=== PATIENT | male | born 1980 | race Caucasian/White ===

== ENCOUNTER 2017-12-23 05:36 | Observation (INO) ==
--- NOTE | 2017-12-23 06:08 | ED ---
HPI General Chief Complaint: Shortness of Breath/Dyspnea Stated Complaint: SOB Time Seen by Provider: 12/23/17 06:03 Source: patient and family Mode of arrival: ambulatory Limitations: no limitations History of Present Illness MD Complaint: Reports shortness of breath Onset (ago): day(s) (2) Severity: moderate Consistency/Duration: constant Relieving factors: nothing Exacerbating factors: lying flat Known history of: Reports congestive heart failure Treatment prior to arrival: Reports other (lasix 40mg?) Related Data Home Medications Medication Instructions Recorded Confirmed aspirin 81 mg PO DAILY 12/23/17 12/23/17 furosemide [Lasix] 20 mg PO DAILY 12/23/17 12/23/17 Allergies Allergy/AdvReac Type Severity Reaction Status Date / Time No Known Allergies Allergy Verified 12/23/17 05:44 Review of Systems ROS: all other systems reviewed are negative PMFSH History History Provided By: Patient and Family Member Medical History Medical History CHF (congestive heart failure) (Acute) Social History Social History Substance History: No History of Abuse Smoking Status: Current every day smoker Tobacco Type: Cigarettes How Often Do You Have a Drink Containing Alcohol: 2 to 3 times a week Recent Travel in [facility] within the Last 8 Weeks: No Recent Out of Country Travel within the Last 8 Weeks: No Exam Narrative Exam Narrative: GENERAL: Well-nourished, well-developed patient in no apparent distress. SKIN: Warm and dry. HEAD: Atraumatic. Normocephalic. EYES: Pupils equal and round. No scleral icterus. No injection or drainage. ENT: No nasal bleeding or discharge. Mucous membranes pink and moist. NECK: Trachea midline. No JVD. CARDIOVASCULAR: Regular rate and rhythm. no rubs or gallops RESPIRATORY: No accessory muscle use. Bibasilar rhonchi/crackles . Tidal volume equal bilaterally. Tachypneic GASTROINTESTINAL: Abdomen soft, non-tender, nondistended. No rebound or guarding MUSCULOSKELETAL: Extremities without clubbing, cyanosis, or edema. No obvious deformities. NEUROLOGICAL: Awake and alert. No obvious cranial nerve deficits. Motor grossly within normal limits. Five out of 5 muscle strength in the arms and legs. Normal speech. PSYCHIATRIC: Appropriate mood and affect; insight and judgment normal. Course Initial Documented Vital Signs Pulse Rate 127 H 12/23/17 05:44 Respiratory Rate 31 H 12/23/17 05:44 Pulse Oximetry 100 12/23/17 05:44 Last Documented Vital Signs Temperature 97.9 F 12/23/17 07:17 Pulse Rate 117 H 12/23/17 07:17 Respiratory Rate 20 12/23/17 07:17 Blood Pressure 128/82 12/23/17 07:17 Pulse Oximetry 96 12/23/17 07:20 Medical Decision Making MDM Narrative Medical decision making narrative: Symptoms and chest x-ray would indicate CHF exacerbation. Patient had been given Lasix in the ER. On reevaluation is still feeling short of breath, and his BNP is fairly elevated as well. CTA does not show any signs of PE. At this point, my plan would be to admit the patient for further treatment. Case is discussed with Dr. Scott for admission. Medical Screen Exam Complete: Yes Emergency Medical Condition: Yes Differential Diagnosis Differential Diagnosis: Pneumonia versus CHF versus COPD Lab Data Lab results reviewed: Yes I reviewed the patient's lab results. Result diagrams: 12/23/17 06:30 12/23/17 06:30 Lab Results 12/23/17 12/23/17 12/23/17 Range/Units 06:30 06:30 06:30 WBC 12.6 H (4.0-11.0) th/mm3 RBC 5.48 (4.50-5.90) mil/mm3 Hgb 17.9 H (13.0-17.0) gm/dL Hct 52.5 H (39.0-51.0) % MCV 95.9 (80.0-100.0) fL MCH 32.7 (27.0-34.0) pg MCHC 34.0 (32.0-36.0) % RDW 16.4 (11.6-17.2) % Plt Count 290 (150-450) th/mm3 MPV 8.5 (7.0-11.0) fL Neut % (Auto) 71.3 H (16.0-70.0) % Lymph % (Auto) 19.6 (9.0-44.0) % Sibley % (Auto) 7.5 (0.0-8.0) % Eos % (Auto) 1.0 (0.0-4.0) % Baso % (Auto) 0.6 (0.0-2.0) % Neut # (Auto) 9.0 H (1.8-7.7) th/mm3 Lymph # (Auto) 2.5 (1.0-4.8) th/mm3 Sibley # (Auto) 1.0 H (0.0-0.9) th/mm3 Eos # (Auto) 0.1 (0.0-0.4) th/mm3 Baso # (Auto) 0.1 (0.0-0.2) th/mm3 WBC Differential . Differential Comment Auto diff final PT 11.0 (9.8-11.6) sec INR 1.1 Ratio APTT 24.8 (23.4-31.7) sec Sodium 142 (136-145) meq/L Potassium 4.5 (3.5-5.1) meq/L Chloride 104 (98-107) meq/L Carbon Dioxide 27.9 (21.0-32.0) meq/L Anion Gap 10 (5-15) meq/L BUN 9 (7-18) mg/dL Creatinine 1.54 H (0.60-1.30) mg/dL Estimated GFR 51 L (>89) mL/min Random Glucose 123 H (74-106) mg/dL Calcium 8.6 (8.5-10.1) mg/dL Total Bilirubin 0.6 (0.2-1.0) mg/dL AST 56 H (15-37) U/L ALT 50 (12-78) U/L Alkaline Phosphatase 107 (45-117) U/L Total Creatine Kinase 567 H (39-308) U/L CK-MB (CK-2) 2.8 (0.5-3.6) ng/mL CK-MB (CK-2) % 0.5 (0.0-4.0) % Troponin I 0.06 H (0.02-0.05) ng/mL B-Natriuretic Peptide (0-100) pg/mL Total Protein 7.5 (6.4-8.2) g/dL Albumin 3.4 (3.4-5.0) g/dL 12/23/17 Range/Units 06:30 WBC (4.0-11.0) th/mm3 RBC (4.50-5.90) mil/mm3 Hgb (13.0-17.0) gm/dL Hct (39.0-51.0) % MCV (80.0-100.0) fL MCH (27.0-34.0) pg MCHC (32.0-36.0) % RDW (11.6-17.2) % Plt Count (150-450) th/mm3 MPV (7.0-11.0) fL Neut % (Auto) (16.0-70.0) % Lymph % (Auto) (9.0-44.0) % Sibley % (Auto) (0.0-8.0) % Eos % (Auto) (0.0-4.0) % Baso % (Auto) (0.0-2.0) % Neut # (Auto) (1.8-7.7) th/mm3 Lymph # (Auto) (1.0-4.8) th/mm3 Sibley # (Auto) (0.0-0.9) th/mm3 Eos # (Auto) (0.0-0.4) th/mm3 Baso # (Auto) (0.0-0.2) th/mm3 WBC Differential Differential Comment PT (9.8-11.6) sec INR Ratio APTT (23.4-31.7) sec Sodium (136-145) meq/L Potassium (3.5-5.1) meq/L Chloride (98-107) meq/L Carbon Dioxide (21.0-32.0) meq/L Anion Gap (5-15) meq/L BUN (7-18) mg/dL Creatinine (0.60-1.30) mg/dL Estimated GFR (>89) mL/min Random Glucose (74-106) mg/dL Calcium (8.5-10.1) mg/dL Total Bilirubin (0.2-1.0) mg/dL AST (15-37) U/L ALT (12-78) U/L Alkaline Phosphatase (45-117) U/L Total Creatine Kinase (39-308) U/L CK-MB (CK-2) (0.5-3.6) ng/mL CK-MB (CK-2) % (0.0-4.0) % Troponin I (0.02-0.05) ng/mL B-Natriuretic Peptide 1209 H (0-100) pg/mL Total Protein (6.4-8.2) g/dL Albumin (3.4-5.0) g/dL Imaging Data Attestation: I personally reviewed and interpreted this imaging study as follows : Radiologist's impression: Chest CTA 12/23/17 06:03 CONCLUSION: 1. Left ventricular enlargement. 2. Mediastinal lymph nodes most likely benign and follow-up is suggested with noncontrast chest CT in 6 months. There is also a right lung nodule could be followed at the same time. Chest X-Ray 12/23/17 06:03 CONCLUSION: Enlargement of the cardiac silhouette ECG Data EKG Prior to Arrival: No Attestation: I personally reviewed and interpreted this ECG as follows: Prior ECG tracings: not available for review Interpretation: Sinus tach, 127 bpm, left axis deviation, nonspecific ST-T wave changes, inverted T waves on 1 aVL and V6, no evidence of any acute ST elevation TX pattern. Discharge Plan Discharge Disposition Patient Disposition: 30 Still Patient Discharge Condition Condition: Stable Discharge Details Anticipated Discharge Date: 12/23/17 Diagnosis: CHF (congestive heart failure) Physicians Team ED Provider: Golden Rodriguez Primary Care Provider: Primary Care Crystal Gordon Rxs /Orders / Referrals /Forms Prescriptions: No Action aspirin 81 mg Tablet,Chewable 81 mg PO DAILY RF: 0 furosemide [Lasix] 20 mg Tablet 20 mg PO DAILY RF: 0 Discharge Interventions Interventions: Vital Signs Last Done: 12/23/17 07:17 Status ED Status: With Doctor
--- NOTE | 2017-12-23 06:27 | XR ---
EXAM DATE: 12/23/2017 6:25 AM EST AGE/SEX: 37 years / Male INDICATIONS: Shortness of breath. CLINICAL DATA: This is the patient's initial encounter. Patient reports that signs and symptoms have been present for 2 days and indicates a pain score of 0/10. MEDICAL/SURGICAL HISTORY: Congestive heart failure. None. COMPARISON: No prior exams available for comparison. FINDINGS: Cardiac silhouette is enlarged. No definite focal infiltrate or effusion. CONCLUSION: Enlargement of the cardiac silhouette Electronically signed by: Chilo Brower MD 12/23/2017 6:26 AM EST
[2017-12-23 06:49] LABS: Baso # (Auto) 0.1 th/mm3 (0.0-0.2); Baso % (Auto) 0.6 % (0.0-2.0); Eos # (Auto) 0.1 th/mm3 (0.0-0.4); Hematocrit 52.5 % (39.0-51.0); Hemoglobin 17.9 gm/dL (13.0-17.0); Lymph # (Auto) 2.5 th/mm3 (1.0-4.8); Lymph % (Auto) 19.6 % (9.0-44.0); Mean Corpuscular Hemoglobin 32.7 pg (27.0-34.0); Mean Corpuscular Volume 95.9 fL (80.0-100.0); Mean Platelet Volume 8.5 fL (7.0-11.0); Mono % (Auto) 7.5 % (0.0-8.0); Neut % (Auto) 71.3 % (16.0-70.0); Platelet Count 290 th/mm3 (150-450); Red Blood Count 5.48 mil/mm3 (4.50-5.90); Red Cell Distribution Width 16.4 % (11.6-17.2); White Blood Count 12.6 th/mm3 (4.0-11.0)
[2017-12-23 06:59] LABS: Activated Partial Thrombo Time 24.8 sec (23.4-31.7); INR 1.1 Ratio
[2017-12-23 07:26] LABS: Alanine Aminotransferase 50 U/L (12-78); Albumin 3.4 g/dL (3.4-5.0); Alkaline Phosphatase 107 U/L (45-117); Anion Gap 10 meq/L (5-15); Aspartate Aminotransferase 56 U/L (15-37); Blood Urea Nitrogen 9 mg/dL (7-18); Calcium 8.6 mg/dL (8.5-10.1); Carbon Dioxide 27.9 meq/L (21.0-32.0); Chloride 104 meq/L (98-107); Creatine Kinase 567 U/L (39-308); Glomerular Filtration Rate 51 mL/min (>89); Glucose,Random 123 mg/dL (74-106); Potassium 4.5 meq/L (3.5-5.1); Sodium 142 meq/L (136-145); Total Protein 7.5 g/dL (6.4-8.2); Troponin I 0.06 ng/mL (0.02-0.05)
[2017-12-23 07:39] LABS: CKMB Percent 0.5 % (0.0-4.0); Creatine Kinase MB 2.8 ng/mL (0.5-3.6)
--- NOTE | 2017-12-23 08:07 | CT ---
EXAM DATE: 12/23/2017 7:59 AM EST AGE/SEX: 37 years / Male INDICATIONS: Shortness of breath. CLINICAL DATA: This is the patient's initial encounter. Patient reports that signs and symptoms have been present for 2 days and indicates a pain score of 0/10. MEDICAL/SURGICAL HISTORY: Congestive heart failure. None. RADIATION DOSE: 10.51 CTDI (mGy) COMPARISON: No prior exams available for comparison. TECHNIQUE: Volumetric scanning was performed using a multi-row detector CT scanner during bolus infu alexys of 65 ml Omnipaque 350 (iohexol) nonionic water-soluble contrast as a single exam dose. The myesha a was post processed with a variety of visualization algorithms including full volume maximum intensi ty projection and sliding thin slab reformation. Using automated exposure control and adjustment of the mA and/or kV according to patient size, radiation dose was kept as low as reasonably achievable t o obtain optimal diagnostic quality images. DICOM format image data is available electronically for review and comparison. FINDINGS: There is an approximate 4 mm nodule right upper lobe. Minimal parenchymal infiltrate is seen within l ingula versus scar. There is left ventricular enlargement. There is no evidence of PE for technique. There are small lymph nodes within the mediastinum not phyllis quately characterized most likely benign, however nonspecific and the largest one measures 2.3 cm in size in pretracheal location. CONCLUSION: 1. Left ventricular enlargement. 2. Mediastinal lymph nodes most likely benign and follow-up is suggested with noncontrast chest CT i n 6 months. There is also a right lung nodule could be followed at the same time. Electronically signed by: Delilah Griffiths MD 12/23/2017 8:06 AM EST
[2017-12-23] MEDS: Heparin - SQ 10,000 UNITS/ML Vial SQ SCH ×2 (09:32→20:37)
--- NOTE | 2017-12-23 11:24 | ECG ---
Date Performed: 12/23/2017 Time Performed: 06:04:03 PTAGE: 37 years EKG: SINUS TACHYCARDIA MARKED LEFT AXIS DEVIATION NONSPECIFIC ST & T-WAVE ABNORMALITY ABNORMAL E CG Compared to PREVIOUS TRACING rate has increased, Nonspecific ST and T wave abnormalities are noted. PREVIOUS TRACIN09/22/2008 08.05 DOCTOR: Dragan Harris Interpretating Date/Time 12/23/2017 11:23:28
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
[2017-12-23] MEDS: Metoprolol Tartrate 25 MG Tablet PO SCH (20:37)
[2017-12-24 00:08] LABS: Troponin I 0.06 ng/mL (0.02-0.05)
[2017-12-24 06:56] LABS: Calcium 8.3 mg/dL (8.5-10.1); Carbon Dioxide 29.9 meq/L (21.0-32.0); Potassium 4.1 meq/L (3.5-5.1)
[2017-12-24 07:00] LABS: Chol/HDL Ratio 3.22 Ratio; HDL Cholesterol 42.2 mg/dL (40.0-60.0); Troponin I 0.06 ng/mL (0.02-0.05)
--- NOTE | 2017-12-24 09:35 | P.PNIM ---
Subjective Interval history: Patient reports he still feels short of breath with minimal activity. He denies chest pain. Physical Exam Vital signs: Vital Signs 12/23/17 10:35 12/23/17 11:00 12/23/17 11:24 Temperature 98.0 F 98.0 F 97.8 F Pulse Rate 110 H 114 H 106 H Respiratory Rate 23 19 16 Blood Pressure 112/80 107/73 113/82 Pulse Oximetry 97 96 96 12/23/17 13:25 12/23/17 14:30 12/23/17 15:00 Temperature 97.7 F 97.7 F 97.7 F Pulse Rate 78 106 H 102 H Respiratory Rate 16 20 Blood Pressure 130/71 124/77 109/77 Pulse Oximetry 99 98 98 12/23/17 20:00 12/24/17 00:00 12/24/17 00:10 Temperature 97.5 F L 98.6 F Pulse Rate 116 H 113 H 107 H Respiratory Rate 16 16 Blood Pressure 117/82 135/85 Pulse Oximetry 95 95 12/24/17 04:00 12/24/17 04:10 12/24/17 08:00 Temperature 98.5 F 98.0 F Pulse Rate 113 H 112 H 116 H Respiratory Rate 16 20 Blood Pressure 125/81 113/81 Pulse Oximetry 94 L 96 12/24/17 08:55 Temperature Pulse Rate Respiratory Rate Blood Pressure Pulse Oximetry 97 Intake & Output 12/23/17 12/24/17 12/24/17 18:59 06:59 18:59 Intake Total 400 / 400 480 / 480 Output Total 900 / 900 1000 / 1000 Balance -500 / -500 -520 / -520 Weight 77.11 kg Intake: Oral 400 / 400 480 / 480 Output: Urine 900 / 900 1000 / 1000 Other: # Voids 1 2 Narrative: GENERAL: This is a well-nourished, well-developed patient, in no apparent distress. CARDIOVASCULAR: Normal rate and regular rhythm without murmurs, gallops, or rubs. RESPIRATORY: Good respiratory efforts. Faint bibasilar crackles otherwise clear to auscultation bilaterally. GASTROINTESTINAL: Abdomen soft, non-tender, non-distended. Normal active bowel sounds MUSCULOSKELETAL: Extremities without cyanosis, or edema. NEURO: Alert & Oriented x4 to person, place, time, situation. Moves all ext x4 PSYCH: Appropriate mood and affect. Results - Labs CBC & Chem 7: 12/23/17 06:30 12/24/17 06:21 Laboratory Results - last 24 hr 12/23/17 12/24/17 23:25 06:21 Sodium 144 Potassium 4.1 Chloride 106 Carbon Dioxide 29.9 Anion Gap 8 BUN 11 Creatinine 1.45 H Estimated GFR 54 L Random Glucose 118 H Calcium 8.3 L Total Creatine Kinase 175 158 Troponin I 0.06 H 0.06 H Triglycerides 128 Cholesterol 136 LDL Cholesterol, Calc 68 HDL Cholesterol 42.2 Cholesterol/HDL Ratio 3.22 Assessment and Plan - Plan 37-year-old male admitted with acute systolic CHF: Acute exacerbation of systolic congestive heart failure: Unusual for a patient this age. He reports he was admitted to [facility] in [facility] and was diagnosed with CHF. His story is inconsistent when it comes to his medications. He states he has been compliant with Lasix and he has been taking his medications but also mention the other heart medications are too expensive for him. He could not tell me the names of any of the other medications he is supposed to be taking. He is requesting to be seen by a new track subway repair supervisor because he states he will not follow-up with the one he saw in [place]. -Continue IV Lasix today. Consider switching to all tomorrow. - Heart rate is uncontrolled, increase metoprolol to 25 mg every 8 hours. - TAMEKA RN to request his records from [facility] in [facility]. - Consult oracle consultant Cardiology. EF is severely reduced at 20%. Unusual for a patient this age. - Will eventually need ACEI and spironolactone if BP can tolerate, Will see how he responds to the increased dose of Metoprolol. Acute renal failure-Likely cardiorenal, slightly improved. Recheck BMP tomorrow. Chest tightness: Resolved. Likely secondary to CHF - initial troponin is 0.06 and remained flat. EKG showed sinus tachycardia with nonspecific ST-T wave changes. - Resolved. - Unclear to me if has ischemic cardiomyopathy Mediastinal lymphadenopathy, solitary lung nodule- CT scan showed mediastinal lymphadenopathy, likely benign, also with a 4 mm right lung nodule, follow-up in 6 months. This was discussed with the patient. He is a smoker. Tobacco abuse: - Patient counseled. Heparin for DVT prophylaxis
--- NOTE | 2017-12-24 10:54 | ECHRPT ---
Indication: Heart Failure CONCLUSIONS Severely dilated left ventricle. Wall thickness is measured at the upper limits of normal. The left ventricular systolic function is severely reduced with an estimated ejection fraction less than 20%. The left atrial size is [id number] dilated. The right atrial size is [id number] dilated. Mild mitral valve regurgitation. There is mild tricuspid valve regurgitation. The estimated pulmonary arterial pressure is 38 mmHg. Mild pulmonary valve regurgitation. BP: / HR: Rhythm: MEASUREMENTS (Male / Female) Normal Values Technical Quality:Good 2D ECHO LV Diastolic Diameter PLAX 6.9 cm 4.2 - 5.9 / 3.9 - 5.3 cm LV Systolic Diameter PLAX 6.4 cm IVS Diastolic Thickness 1.1 cm 0.6 - 1.0 / 0.6 - 0.9 cm LVPW Diastolic Thickness 0.9 cm 0.6 - 1.0 / 0.6 - 0.9 cm LV Relative Wall Thickness 0.3 RV Internal Dim ED PLAX 3.6 cm LVOT Diameter 2.2 cm Aortic Root Diameter 3.1 cm LA Systolic Diameter LX 4.6 cm 3.0 - 4.0 / 2.7 - 3.8 cm DOPPLER AV Peak Velocity 72.1 cm/s AV Peak Gradient 2.1 mmHg LVOT Peak Velocity 63.2 cm/s LVOT Peak Gradient 1.6 mmHg AV Area Cont Eq pk 3.3 cm Mitral E Point Velocity 80.9 cm/s LV E' Lateral Velocity 9.2 cm/s Mitral E to LV E' Lateral Ratio 8.8 LV E' Septal Velocity 5.4 cm/s Mitral E to LV E' Septal Ratio 15.1 TR Peak Velocity 265.0 cm/s TR Peak Gradient 28.1 mmHg Right Atrial Pressure 10.0 mmHg Pulmonary Artery Systolic Pressu 38.1 mmHg Right Ventricular Systolic Press 38.1 mmHg PV Peak Velocity 59.1 cm/s PV Peak Gradient 1.4 mmHg FINDINGS LEFT VENTRICLE Severely dilated left ventricle. Wall thickness is measured at the upper limits of normal. The left ventricular systolic function is severely reduced with an estimated ejection fraction less than 20%. RIGHT VENTRICLE Normal right ventricular size and systolic function. LEFT ATRIUM The left atrial size is [id number] dilated. RIGHT ATRIUM The right atrial size is [id number]-[id number] dilated. ATRIAL SEPTUM Normal atrial septal thickness without atrial level shunting by limited color doppler interrogation. AORTA The aortic root and proximal ascending aorta are normal in size on limited imaging. MITRAL VALVE Mild mitral valve regurgitation. AORTIC VALVE Trileaflet aortic valve. No aortic valve stenosis or regurgitation. TRICUSPID VALVE There is mild tricuspid valve regurgitation. The estimated pulmonary arterial pressure is 38 mmHg. PULMONARY VALVE Mild pulmonary valve regurgitation. VESSELS The inferior vena cava is normal in size. PERICARDIUM No pericardial effusion. Valdez Andrews MD, FACC, [facility] (Electronically Signed) Final Date:24 December 2017 10:53
[2017-12-24] MEDS: Metoprolol Tartrate 25 MG Tablet PO SCH ×2 (11:54→17:29)
[2017-12-24] MEDS: Heparin - SQ 10,000 UNITS/ML Vial SQ SCH ×2 (11:55→21:16)
[2017-12-24 14:08] LABS: Troponin I 0.06 ng/mL (0.02-0.05)
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
--- NOTE | 2017-12-24 21:55 | ECG ---
Date Performed: 12/24/2017 Time Performed: 14:38:10 PTAGE: 37 years EKG: SINUS TACHYCARDIA LEFT ATRIAL ENLARGEMENT MARKED LEFT AXIS DEVIATION Nonspecific ST and T [address] abnormalities ABNORMAL ECG No significant change from prior electrocardiogram. DOCTOR: Jaime Hwang Interpretating Date/Time 12/24/2017 21:55:29
--- NOTE | 2017-12-25 08:03 | P.PNCA ---
Subjective Interval history: patient reports continued exertional dyspnea. He is diuresing but not being measured. He is angry that he needs to stay in the hospital and doesn't want to "take a bunch of pills for the rest of my life" "I can't afford them so I'd rather just ". continues to feel mild chest pressure. Could not tolerate metoprolol so he has refused further doses. Lisinopril 2.5mg added. Medications and Allergies Allergies Allergy/AdvReac Type Severity Reaction Status Date / Time No Known Allergies Allergy Verified 12/23/17 05:44 Home Medications Medication Instructions Recorded Confirmed Type aspirin 81 mg PO DAILY 12/23/17 12/23/17 History furosemide [Lasix] 20 mg PO DAILY 12/23/17 12/23/17 History Active Medications: Active Medications Hydrocodone Bitart/Acetaminophen ([place] 5/325) 1 tab PO Q4H PRN PRN Reason: PAIN SCALE 1 TO 10 Last Admin: 12/24/17 21:16 Dose: 1 tab Aspirin (Aspirin Chew) 81 mg PO DAILY [facility] Last Admin: 12/24/17 11:54 Dose: 81 mg Furosemide (Lasix Inj) 20 mg IV.PUSH BID@0900,1800 [facility] Last Admin: 12/24/17 17:29 Dose: Not Given Furosemide (Lasix Inj) 40 mg IV.PUSH DAILY [facility] Heparin Sodium (Porcine) (Heparin Inj) 5,000 units SQ Q12HR [facility] Last Admin: 12/24/17 21:16 Dose: 5,000 units Lisinopril (Prinivil) 2.5 mg PO DAILY [facility] Metoprolol Tartrate (Lopressor) 25 mg PO TID [facility] Last Admin: 12/24/17 17:29 Dose: Not Given Miscellaneous (Pill Splitter) 1 each OTHER DAILY [facility] Last Admin: 12/24/17 11:55 Dose: 1 each Sodium Chloride (Ns Flush) 2 ml IV.FLUSH UNSCH PRN PRN Reason: FLUSH AFTER USING IV ACCESS Last Admin: 12/23/17 10:34 Dose: 2 ml Sodium Chloride (Ns Flush) 2 ml IV.FLUSH BID [facility] Last Admin: 12/24/17 21:16 Dose: 2 ml Physical Exam Vital signs: Vital Signs 12/24/17 08:00 12/24/17 08:55 12/24/17 11:23 Temperature 98.0 F 98.4 F Pulse Rate 116 H 112 H Respiratory Rate 20 16 Blood Pressure 113/81 111/82 Pulse Oximetry 97 97 92 L 12/24/17 15:58 12/24/17 15:59 12/24/17 19:28 Temperature 97.4 F L 98.6 F 98.4 F Pulse Rate 108 H 90 106 H Respiratory Rate 20 18 18 Blood Pressure 109/73 107/87 110/77 Pulse Oximetry 90 L 99 94 L 12/24/17 20:00 12/24/17 23:18 12/25/17 00:00 Temperature 98.6 F Pulse Rate 113 H 124 H 106 H Respiratory Rate 17 Blood Pressure 113/67 Pulse Oximetry 95 95 12/25/17 04:00 12/25/17 05:04 Temperature 98.4 F Pulse Rate 114 H 116 H Respiratory Rate 18 Blood Pressure 110/65 Pulse Oximetry 95 Intake & Output 12/24/17 12/25/17 12/25/17 18:59 06:59 18:59 Intake Total 860 / 860 Output Total 1000 / 1000 Balance -140 / -140 Intake: Oral 860 / 860 Output: Urine 1000 / 1000 Other: Date of Last Bowel Movement 12/24/17 Narrative: GENERAL: SKIN: Warm and dry. HEAD: Normocephalic. EYES: No scleral icterus. No injection or drainage. NECK: Supple, trachea midline. No JVD or lymphadenopathy. CARDIOVASCULAR: Regular rate and rhythm without murmurs, gallops, or rubs. RESPIRATORY: Breath sounds equal bilaterally. No accessory muscle use. GASTROINTESTINAL: Abdomen soft, non-tender. ,mild distention MUSCULOSKELETAL: No cyanosis, or edema. Results 12/23/17 06:30 12/24/17 06:21 Cardiac Enzymes 12/23/17 12/24/17 12/24/17 Range/Units 23:25 06:21 13:10 Troponin I 0.06 H 0.06 H 0.06 H (0.02-0.05) ng/mL Lipids 12/24/17 Range/Units 06:21 Triglycerides 128 (42-150) mg/dL Cholesterol 136 (120-200) mg/dL HDL Cholesterol 42.2 (40.0-60.0) mg/dL Cholesterol/HDL Ratio 3.22 Ratio Comprehensive Metabolic Panel 12/24/17 Range/Units 06:21 Sodium 144 (136-145) meq/L Potassium 4.1 (3.5-5.1) meq/L Chloride 106 (98-107) meq/L Carbon Dioxide 29.9 (21.0-32.0) meq/L BUN 11 (7-18) mg/dL Creatinine 1.45 H (0.60-1.30) mg/dL Calcium 8.3 L (8.5-10.1) mg/dL Intake and Output 12/24/17 12/25/17 12/25/17 22:59 06:59 14:59 Intake Total 380 / 380 Balance 380 / 380 Intake: Oral 380 / 380 Other: Date of Last Bowel Movement 12/24/17 - Imaging and Cardiology Imaging: Impressions Chest CTA 12/23/17 06:03 CONCLUSION: 1. Left ventricular enlargement. 2. Mediastinal lymph nodes most likely benign and follow-up is suggested with noncontrast chest CT in 6 months. There is also a right lung nodule could be followed at the same time. Assessment and Plan - Assessment (1) Cardiomyopathy Code(s): I42.9 - Cardiomyopathy, unspecified Status: Acute (2) CHF (congestive heart failure) Code(s): I50.9 - Heart failure, unspecified Status: Acute - Plan 37 yo M with anxiety recently diagnosed with cardiomyopathy (August 2017), CKD and current tobacco user who presents with progressive exertional dyspnea and abdominal swelling x several days. He reports having had 2 hospital admissions this year at [facility], first in August 2017 after having a syncopal episode and was first diagnosed with cardiomyopathy with EF <20%. He reports having had a normal cardiac catheterization and given a LifeVest with several medication upon discharge that he could not afford due to lack of insurance. He was admitted again one month later for CHF and apparently had a poor encounter with staff and pullman clerk and states because he was found to have an illicit drug in his system. Since last admission he has stopped wearing the LifeVest and has only been taking lasix 20mg daily. He reports progressive dyspnea and abdominal distension over the past several days. No chest pain except 30 mins prior to this encounter when he was given metoprolol 25mg along with asa and reported mild chest tightness. During ED visit here his EKG shows sinus tachycardia. Metoprolol 25mg TID has been started, HR remains elevated 110-120bpm. Echo confirms low EF <10% with severely dilated LV. troponin levels low 0.06 x 3. Creatinine elevated 1.5 cardiomyopathy- likely nonischemic. EF<20% need records from [facility] including last echo and cardiac cath report abdominal swelling likely equivalent for increasing edema. Patient would likely qualify for implantable cardioverter defibrillator, although he is not been maximized on guideline directed medical therapy. consider change from metoprolol to carvedilol. could not tolerate metoprolol. cont lisinopril 2.5mg cont lasix IV 40mg BID morning labs pending patient expressing anger/frustration at his current situation. Feels he cannot afford the necessary medication needed for his heart and states he probably won' t take them anyway. Multiple hospitalizations this year. Will consult case management. - Attending Attestation Convert to oral Lasix Intolerant of metoprolol Angiotensin-converting enzyme inhibitor added Fairly well compensated at this point. Noted crackles on exam. No edema. Noncompliance. Had already completed 3 months of automatic external cardioverter defibrillator. At this point I do not think he would be considered an ideal candidate for an implantable transvenous cardioverter defibrillator secondary to noncompliance and not being on guideline directed medical therapy for duration of 3 months. Not much for us to add at this point. Would recommend continued therapy, he can likely be discharged and follow-up with the [facility]. We will sign off. Call with questions.
[2017-12-25] MEDS ORDERED: Lisinopril 5 MG Tablet PO SCH (09:00)
--- NOTE | 2017-12-25 09:21 | P.PNIM ---
Subjective Interval history: Patient is requesting AICD. He states he didn't like the way Metoprolol made him feel. He is willing to try Coreg. Easily gets irritated. States the medications and being here is making him more anxious. HR still uncontrolled. Physical Exam Vital signs: Vital Signs 12/24/17 11:23 12/24/17 15:58 12/24/17 15:59 Temperature 98.4 F 97.4 F L 98.6 F Pulse Rate 112 H 108 H 90 Respiratory Rate 16 20 18 Blood Pressure 111/82 109/73 107/87 Pulse Oximetry 92 L 90 L 99 12/24/17 19:28 12/24/17 20:00 12/24/17 23:18 Temperature 98.4 F 98.6 F Pulse Rate 106 H 113 H 124 H Respiratory Rate 18 17 Blood Pressure 110/77 113/67 Pulse Oximetry 94 L 95 95 12/25/17 00:00 12/25/17 04:00 12/25/17 05:04 Temperature 98.4 F Pulse Rate 106 H 114 H 116 H Respiratory Rate 18 Blood Pressure 110/65 Pulse Oximetry 95 12/25/17 08:00 Temperature 97.7 F Pulse Rate 119 H Respiratory Rate 20 Blood Pressure 113/84 Pulse Oximetry 96 Intake & Output 12/24/17 12/25/17 12/25/17 18:59 06:59 18:59 Intake Total 860 / 860 Output Total 1000 / 1000 Balance -140 / -140 Intake: Oral 860 / 860 Output: Urine 1000 / 1000 Other: Date of Last Bowel Movement 12/24/17 Narrative: GENERAL: This is a well-nourished, well-developed patient, in no apparent distress. CARDIOVASCULAR: Normal rate and regular rhythm without murmurs, gallops, or rubs. RESPIRATORY: Good respiratory efforts. Clear to auscultation bilaterally. GASTROINTESTINAL: Abdomen soft, non-tender, non-distended. Normal active bowel sounds MUSCULOSKELETAL: Extremities without cyanosis, or edema. NEURO: Alert & Oriented x4 to person, place, time, situation. Moves all ext x4 PSYCH: Easily irritable. Results - Labs CBC & Chem 7: 12/23/17 06:30 12/24/17 06:21 Laboratory Results - last 24 hr 12/23/17 12/24/17 23:25 13:10 Hemoglobin A1c 6.0 Total Creatine Kinase 123 Troponin I 0.06 H Assessment and Plan - Plan 37-year-old male admitted with acute systolic CHF: Acute exacerbation of systolic congestive heart failure: He reports he was admitted to [facility] in [facility] and was diagnosed with CHF. His story is inconsistent when it comes to his medications. He states he has been compliant with Lasix and he has been taking his medications but also mention the other heart medications are too expensive for him. He states he has been wear the lifevest for 3 months and did not get better. - Switch to Coreg. Patient willing to try - [employer] Dr. Malcolm. Recommendation is for patient to be on medical therapy for at least 3 months, then he can considered for AICD. Patient is noncompliant and has been refusing medications. EF is severely reduced at 20%. - Patient started on low dose ACEI Acute renal failure-Likely cardiorenal, slightly improved. Follow up labs today. Chest tightness: Resolved. Likely secondary to CHF - initial troponin is 0.06 and remained flat. EKG showed sinus tachycardia with nonspecific ST-T wave changes. - Resolved. - Unclear to me if has ischemic cardiomyopathy Mediastinal lymphadenopathy, solitary lung nodule- CT scan showed mediastinal lymphadenopathy, likely benign, also with a 4 mm right lung nodule, follow-up in 6 months. This was discussed with the patient. He is a smoker. Tobacco abuse: - Patient counseled. Heparin for DVT prophylaxis Discharge Planning: Transition to oral medications. Plan to DC tomorrow if he remains stable. He will need to follow up outpatient with Cardiology.
[2017-12-25] MEDS: Heparin - SQ 10,000 UNITS/ML Vial SQ SCH (10:07)
[2017-12-25] MEDS ORDERED: LORazepam 1 MG Tablet PO PRN (10:26)
[2017-12-25] MEDS: Metoprolol Tartrate 25 MG Tablet PO SCH (12:12)
[2017-12-25 16:15] VITALS: BP 109/75; RESP 12; TEMP 97.6; O2SAT 94
[2017-12-25 17:21] VITALS: PULSE 115
--- NOTE | 2017-12-26 16:08 | P.DS ---
Date of admission: 12/23/17 09:00 Primary care physician: No Primary Care Physician Brief History from admission: This is a 37-year-old male with history of congestive heart failure diagnosed in August 2017 allegedly with an EF of 10% and negative cardiac catheterization presenting to the emergency department with shortness of breath which started yesterday associated with cough that is clear, no note of fever, chills or orthopnea. No sick contacts. No note of lower extremity swelling. Per patient , this is worsened when he eats certain types of food. He also had mild chest tightness, nonradiating, no nausea or vomiting. Of note, he never had a heart attack, no history of hypertension, diabetes or dyslipidemia. He smokes half a pack a day, not daily alcohol drinker, allegedly may be consuming a sixpack once a week DS: Summary Hospital Course: 37-year-old male admitted with acute on chronic systolic CHF. Patient is noncompliant. He eventually left the hospital AGAINST MEDICAL ADVICE. Treatment course per the last progress note detailed below: Acute exacerbation of systolic congestive heart failure: He reports he was admitted to [facility] in [facility] and was diagnosed with CHF. His story is inconsistent when it comes to his medications. He states he has been compliant with Lasix and he has been taking his medications but also mention the other heart medications are too expensive for him. He states he has been wear the lifevest for 3 months and did not get better. - Switch to Coreg. 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 Recommendation is for patient to be on medical therapy for at least 3 months, then he can considered for AICD. Patient is noncompliant and has been refusing medications. EF is severely reduced at 20%. - Patient started on low dose ACEI Acute renal failure-Likely cardiorenal, slightly improved. Follow up labs today. Chest tightness: Resolved. Likely secondary to CHF - initial troponin is 0.06 and remained flat. EKG showed sinus tachycardia with nonspecific ST-T wave changes. - Resolved. - Unclear to me if has ischemic cardiomyopathy Mediastinal lymphadenopathy, solitary lung nodule- CT scan showed mediastinal lymphadenopathy, likely benign, also with a 4 mm right lung nodule, follow-up in 6 months. This was discussed with the patient. He is a smoker. Tobacco abuse: - Patient counseled. Heparin for DVT prophylaxis - Time Spent with Patient Total time spent providing and/or coordinating discharge services: Less than 30 minutes - Quality: VTE Deep Vein Thrombosis/Pulmonary Embolism Present on Admission: No Exam Vital signs: Vital Signs 12/25/17 17:20 Pulse Rate 115 H Results Procedures completed during hospitalization: None - Impressions ITS Impressions Chest CTA 12/23/17 06:03 CONCLUSION: 1. Left ventricular enlargement. 2. Mediastinal lymph nodes most likely benign and follow-up is suggested with noncontrast chest CT in 6 months. There is also a right lung nodule could be followed at the same time. Chest X-Ray 12/23/17 06:03 CONCLUSION: Enlargement of the cardiac silhouette Discharge Plan - Discharge Disposition Patient Disposition: 07 Against Medical Advice - Discharge Condition Condition: Stable - Discharge Details Anticipated Discharge Date: 12/23/17 - Physicians Team Primary Care Provider: Primary Care Crystal Gordon Attending Provider: Jose Roberto Blank Other Providers: Giovanni Malcolm MD
== END 2017-12-25 18:36 | disposition left against medical advice (07) ==
LOC: NEPC 05:36 → NEDA 05:36 → NEPHCDU 15:00
PROVIDERS: ADMIT Family Medicine; ATTEND Family Medicine

== ENCOUNTER 2018-01-01 04:00 | Inpatient (IN) ==
[2018-01-01] MEDS ORDERED: Morphine Inj 4 MG/ML Vial IV.PUSH ONE (04:12)
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
[2018-01-01 04:36] LABS: Baso # (Auto) 0.1 th/mm3 (0.0-0.2); Baso % (Auto) 0.8 % (0.0-2.0); Eos % (Auto) 0.3 % (0.0-4.0); Hematocrit 52.4 % (39.0-51.0); Hemoglobin 17.1 gm/dL (13.0-17.0); Lymph # (Auto) 2.4 th/mm3 (1.0-4.8); Lymph % (Auto) 21.4 % (9.0-44.0); Mean Corpuscular HGB Conc 32.7 % (32.0-36.0); Mean Corpuscular Hemoglobin 31.5 pg (27.0-34.0); Mean Corpuscular Volume 96.5 fL (80.0-100.0); Mono # (Auto) 1.3 th/mm3 (0.0-0.9); Mono % (Auto) 11.4 % (0.0-8.0); Neut # (Auto) 7.3 th/mm3 (1.8-7.7); Neut % (Auto) 66.1 % (16.0-70.0); Platelet Count 269 th/mm3 (150-450); Red Blood Count 5.43 mil/mm3 (4.50-5.90); Red Cell Distribution Width 16.4 % (11.6-17.2)
[2018-01-01 04:51] LABS: Alanine Aminotransferase 71 U/L (12-78); Albumin 3.5 g/dL (3.4-5.0); Anion Gap 8 meq/L (5-15); Aspartate Aminotransferase 46 U/L (15-37); Blood Urea Nitrogen 24 mg/dL (7-18); Calcium 8.7 mg/dL (8.5-10.1); Carbon Dioxide 27.9 meq/L (21.0-32.0); Chloride 101 meq/L (98-107); Glomerular Filtration Rate 32 mL/min (>89); Glucose,Random 71 mg/dL (74-106); Lipase 84 U/L (73-393); Potassium 4.7 meq/L (3.5-5.1); Sodium 137 meq/L (136-145)
[2018-01-01 04:53] LABS: Alkaline Phosphatase 91 U/L (45-117)
[2018-01-01] MEDS ORDERED: Acetaminophen 325 MG Tablet PO PRN (05:40)
[2018-01-01] MEDS ORDERED: Bisacodyl 10 MG Supp RECTAL PRN (05:40)
[2018-01-01] MEDS ORDERED: Sodium Chlor 0.9% Inj 500 ML IV.SIG SCH (06:00)
--- NOTE | 2018-01-01 06:28 | US ---
EXAM DATE: 01/01/2018 6:21 AM EST AGE/SEX: 37 years / Male INDICATIONS: Abdominal pain. CLINICAL DATA: This is the patient's initial encounter. Patient reports that signs and symptoms have been present for 3 days and indicates a pain score of 1/10. MEDICAL/SURGICAL HISTORY: Congestive heart failure. Acute renal failure. None. COMPARISON: No prior exams available for comparison. MEASUREMENTS: Liver:__ 16.8 cm. Common Bile Duct:___ 3mm. Right Kidney:___9.4 x 4.8 x 4.9 cm. Left Kidney:___12.5 x 5.2 x 5.6 cm. Spleen:___10.6 cm. FINDINGS: Liver: Increased echotexture without focal lesion or ductal dilation. Portal Vein: Hepatopedal flow seen in portal vein. Common Duct: No intraluminal mass or stone visualized. Gallbladder: The gallbladder wall is diffusely thickened however the patient is not appreciably ten mathew over the gallbladder. No definite gallstones are identified. Pancreas: Not well visualized. Right Kidney: Increased echotexture. No mass or hydronephrosis. Left Kidney: Increased echotexture. No mass or hydronephrosis. Ascites: None Pleural Effusion: None Spleen: No focal lesion. Aorta: Non aneurysmal. IVC: Within normal limits Other: None. CONCLUSION: 1. Marked gallbladder wall thickening without a sonographic Busch's sign. 2. Echogenic liver presumably fatty infiltration. 3. Mildly echogenic kidneys suggesting chronic medical renal disease Electronically signed by: Giovanni Borrego MD 01/01/2018 6:27 AM EST
[2018-01-01] MEDS: Senna/Docusate Sodium 8.6/50 MG Tablet PO SCH ×2 (08:38→20:24)
[2018-01-01 09:54] LABS: Calcium 8.4 mg/dL (8.5-10.1); Carbon Dioxide 24.5 meq/L (21.0-32.0); Potassium 4.5 meq/L (3.5-5.1)
[2018-01-01] MEDS: Morphine Sulfate Inj 2 MG/ML Vial IV.PUSH PRN (10:35)
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
--- NOTE | 2018-01-01 14:13 | MB ---
cc: Adán Rios MD DATE: 01/01/2018 REASON FOR CONSULTATION: Preoperative evaluation. HISTORY OF PRESENT ILLNESS: The patient is a pleasant 37-year-old heavily tattooed gentleman with a history of cocaine abuse and nonischemic cardiomyopathy with ejection fraction of less than 20%. The patient also has history of noncompliance to medication he says due to cost. The patient was in the hospital about a week ago for congestive heart failure exacerbation, was discharged, continued to use cocaine (admitted by the patient), though he was not taking his diuretic as he felt he was already too dry. However, he began feeling more short of breath with minimal activity, and thus he presented to the emergency department. He also notes black tarry stools and throwing up black emesis. Aside from feeling weak and fatigued, he has no active chest pain or shortness of breath, lightheadedness, dizziness, or syncope. PAST MEDICAL HISTORY: Cocaine abuse, cardiomyopathy with an ejection fraction of less than 20% with severe LV dilation. Prior consultation noted a report of a negative catheterization done at [facility], though I do not currently have access to this. HOME MEDICATIONS: 1. Lactulose. 2. Zofran. ALLERGIES: NO KNOWN DRUG ALLERGIES. PHYSICAL EXAMINATION: VITAL SIGNS: Afebrile, pulse 105, respiratory rate 16, BP 117/77, saturating 97% on room air. GENERAL: Pleasant heavily tattooed gentleman in no distress. NECK: No JVD. LUNGS: Clear to auscultation bilaterally. CARDIOVASCULAR: Regular rate and rhythm. A 2/6 systolic murmur appreciated. ABDOMEN: Benign. EXTREMITIES: No edema. LABORATORY DATA: White count 11, hematocrit 52.4, platelets 269. Sodium 137, potassium 4.5, chloride 103, bicarbonate 24.5, BUN 24. Creatinine 2.2, down from 2.8. BNP is 1592. Chest x-ray shows cardiomegaly. IMPRESSION: 1. Acute on chronic systolic congestive heart failure. The patient appears well compensated. His BNP is elevated. However, his hemoglobin is actually high, implying he may even be dehydrated. At this point, I would opt to keep him euvolemic, but I will add a bit of oral Lasix to his regimen to assist with this. 2. Cardiomyopathy. He has been deemed noncompliant with medications and has ongoing cocaine abuse and thus has not been currently deemed to be a defibrillator candidate, though this could potentially change if his habits and compliance were to improve. 3. Preoperative evaluation. The patient has a known severe nonischemic cardiomyopathy. He is reasonably compensated. However given his low ejection fraction, he will be at high risk for any procedure, though I do not at this time feel there is much I can recommend that will significantly reduce his risk for any procedure. I will be available on an as-needed basis. Please call with any questions. Thank you again for the opportunity to participate in this patient's care. MD JAVIER Husain/jazmín , 01:18 PM , 01:27 PM
--- NOTE | 2018-01-01 14:59 | CT ---
EXAM DATE: 01/01/2018 2:46 PM EST AGE/SEX: 37 years / Male INDICATIONS: Right upper quadrant pain. CLINICAL DATA: This is the patient's initial encounter. Patient reports that signs and symptoms have been present for 4 - 6 days and indicates a pain score of 8/10. MEDICAL/SURGICAL HISTORY: Congestive heart failure. Renal failure, acute. None. RADIATION DOSE: 6.76 CTDI (mGy) [place] [facility] [place], [place] [facility] [place]. . TECHNIQUE: Multiple contiguous axial images were obtained through the abdomen. Images were obtained using multiple row detector helical technique. Using automated exposure control and adjustment of the mA and/or kV according to patient size, radiation dose was kept as low as reasonably achievable to o btain optimal diagnostic quality images. DICOM format image data is available electronically for rev iew and comparison. FINDINGS: Lower Lungs: The visualized lower lungs are clear. The heart is markedly enlarged. Liver: The liver is enlarged. No focal hepatic mass is identified on this unenhanced examination. No biliary ductal dilatation is noted. A small amount of ascites is noted within the abdomen and pelvis. The gallbladder demonstrates a diffusely thickened wall and contains hyperdense material. Streakines s is noted within the pericholecystic fat. The findings raise possibility of acute cholecystitis. Cli nical correlation is recommended. Spleen: Homogeneous density without enlargement. Pancreas: Unremarkable without mass or calcification. Kidneys: Normal in size and shape. No evidence of mass or hydronephrosis. Adrenal Glands: Unremarkable. Aorta: The aorta and proximal iliac vessels are grossly unremarkable without aneurysmal dilation. Bowel/Mesentery: The bowel loops are grossly unremarkable. The cecum and sigmoid colon have a normal configuration. Abdominal Wall: Intact. Retroperitoneum: No evidence of adenopathy in the retrocrural, para-aortic, or deep pelvic regions. Bladder: Contours are smooth. Reproductive Organs: No abnormal masses or calcifications seen. Inguinal: The inguinal region is unremarkable without evidence of adenopathy. Bony Structures: Mild degenerative changes and scoliosis of the thoracolumbar spine are noted. CONCLUSION: 1. Thick-walled gallbladder containing hyperdense material suggesting sludge and pericholecystic inf lammation. The findings suggest acute cholecystitis. Clinical correlation is recommended. 2. Enlarged liver. 3. Markedly enlarged heart. 4. Small amount of ascites within the abdomen or pelvis. 5. Mild degenerative changes and scoliosis of the thoracolumbar spine. Electronically signed by: Jose Bourgeois MD 01/01/2018 2:58 PM EST
--- NOTE | 2018-01-01 15:07 | ECG ---
Date Performed: 01/01/2018 Time Performed: 04:09:22 PTAGE: 37 years EKG: SINUS TACHYCARDIA Left axis deviation Atrial Abnormality Poor R-wave progresion which may b e due to the left axis deviation Diffuse Nonspecific ST-T change PREVIOUS TRACING : 12/24/2017 14.38 Since the previous tracing, no significant change not ed DOCTOR: Magdy Matthews Interpretating Date/Time 01/01/2018 15:05:48
[2018-01-01] MEDS ORDERED: Sincalide Inj 5 MCG Vial ONE (15:38)
[2018-01-01] MEDS ORDERED: Sod Chloride 0.9% Inj 1,000 ML IV.CONT SCH (15:49)
--- NOTE | 2018-01-01 16:39 | NM ---
EXAM DATE: 01/01/2018 4:31 PM EST AGE/SEX: 37 years / Male INDICATIONS: Nausea and vomiting. CLINICAL DATA: This is the patient's initial encounter. Patient reports that signs and symptoms have been present for 1 day and indicates a pain score of 3/10. MEDICAL/SURGICAL HISTORY: Congestive heart failure. Renal failure, chronic. None. COMPARISON: [facility] – [place] ABDOMEN & PELVIS W/O CONTRAST, 01/01/2018. [facility] [place], 2017. . DOSE: 4.1 mCi Tc-99m mebrofenin i.v. Medication: 1.4 mcg Cholecystokinin IV Identical symptomatic response Cholecystokinin was administered by slow infusion over 8 minutes beginning at 60 minutes. minutes. TECHNIQUE: Following the intravenous administration of radiotracer, dynamic sequential images were pe rformed with continuous acquisition. Time-activity curves were generated. FINDINGS: Hepatic Kinetics: There is prompt uptake of radiotracer in the liver. No focal defects are seen. Ther e is normal rate of washout from the hepatic parenchyma. Biliary Clearance: Activity is first seen in the extrahepatic biliary system at 18 minutes. There is normal excretion into the small bowel. Gallbladder: Activity is first seen in the gallbladder at 25 minutes. Post-CCK: After CCK administration, the patient moved significantly and the repositioned at 3 minutes after CCK administration. On qualitative assessment, there is very little emptying of the gallbladde r, less than 25%. Common bile duct kinetics are normal and there is no evidence of biliary obstructio n. Identical symptomatic response after cholecystokinin infusion. Biliary-Enteric Reflux: None observed. CONCLUSION: 1. Prompt visualization of the gallbladder excludes cystic duct obstruction. 2. Very little emptying of the gallbladder after cholecystokinin with reproduction of typical clinic al symptoms. These findings are characteristic of chronic cholecystitis. Electronically signed by: Hunter Thornton MD 01/01/2018 4:38 PM EST
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
[2018-01-01] MEDS: Furosemide 20 MG Tablet PO SCH (17:23)
--- NOTE | 2018-01-01 20:35 | P.PNGS ---
Subjective Interval history: 37-year-old male with presumed acute cholecystitis acute cholecystitis and cholelithiasis. Ejection fraction of less than 10% at last admission which is incompatible with any major surgery. This patient is absolutely not a candidate for surgery and mortality of this will be prohibitive. Patient should be treated with antibiotics if necessary, but I do not see any stigmata or clinical findings of acute cholecystitis, beyond distended gallbladder. Patient is not a surgical candidate for any surgery Full consult dictated Thanks J Physical Exam Vital signs: Vital Signs 01/01/18 04:00 01/01/18 04:10 01/01/18 08:00 Temperature 98.3 F 97.7 F Pulse Rate 117 H 124 H 107 H Respiratory Rate 22 22 16 Blood Pressure 131/81 120/73 117/77 Pulse Oximetry 98 97 97 01/01/18 10:45 01/01/18 11:49 01/01/18 12:00 Temperature Pulse Rate 105 H 102 H Respiratory Rate 16 16 Blood Pressure 100/67 Pulse Oximetry 94 L 01/01/18 19:40 Temperature 97.7 F Pulse Rate 101 H Respiratory Rate 18 Blood Pressure 99/72 L Pulse Oximetry 94 L Intake & Output 01/01/18 01/01/18 01/02/18 06:59 18:59 06:59 Intake Total 1000 / 1000 Balance 1000 / 1000 Weight 72.575 kg Intake: IV 1000 / 1000 NS Inj 500 ML @ 1000 mls/hr IV. 1000 / 1000 SIG BOLUS [facility] Rx#:[id number] Results - Labs 01/02/18 06:55 01/02/18 06:55 Laboratory Results - last 24 hr 01/01/18 01/01/18 01/01/18 04:17 04:17 04:17 WBC 11.0 RBC 5.43 Hgb 17.1 H Hct 52.4 H MCV 96.5 MCH 31.5 MCHC 32.7 RDW 16.4 Plt Count 269 MPV 9.0 Neut % (Auto) 66.1 Lymph % (Auto) 21.4 [place] % (Auto) 11.4 H Eos % (Auto) 0.3 Baso % (Auto) 0.8 Neut # (Auto) 7.3 Lymph # (Auto) 2.4 [place] # (Auto) 1.3 H Eos # (Auto) 0.0 Baso # (Auto) 0.1 WBC Differential . Differential Comment Auto diff final Sodium 137 Potassium 4.7 Chloride 101 Carbon Dioxide 27.9 Anion Gap 8 BUN 24 H Creatinine 2.28 H Estimated GFR 32 L Random Glucose 71 L Lactic Acid 2.2 H Calcium 8.7 Total Bilirubin 0.9 AST 46 H ALT 71 Alkaline Phosphatase 91 B-Natriuretic Peptide Total Protein 7.0 Albumin 3.5 Lipase 84 01/01/18 01/01/18 01/01/18 04:17 09:10 09:10 WBC RBC Hgb Hct MCV MCH MCHC RDW Plt Count MPV Neut % (Auto) Lymph % (Auto) [place] % (Auto) Eos % (Auto) Baso % (Auto) Neut # (Auto) Lymph # (Auto) [place] # (Auto) Eos # (Auto) Baso # (Auto) WBC Differential Differential Comment Sodium 137 Potassium 4.5 Chloride 103 Carbon Dioxide 24.5 Anion Gap 10 BUN 24 H Creatinine 2.20 H Estimated GFR 33 L Random Glucose 100 Lactic Acid 1.7 Calcium 8.4 L Total Bilirubin AST ALT Alkaline Phosphatase B-Natriuretic Peptide 1592 H Total Protein Albumin Lipase - Imaging Imaging: ITS Impressions Bile Acid Absorption NM 01/01/18 00:00 CONCLUSION: 1. Prompt visualization of the gallbladder excludes cystic duct obstruction. 2. Very little emptying of the gallbladder after cholecystokinin with reproduction of typical clinical symptoms. These findings are characteristic of chronic cholecystitis. Abdomen Ultrasound 01/01/18 04:37 CONCLUSION: 1. Marked gallbladder wall thickening without a sonographic Busch's sign. 2. Echogenic liver presumably fatty infiltration. 3. Mildly echogenic kidneys suggesting chronic medical renal disease Abdomen/Pelvis CT 01/01/18 12:29 CONCLUSION: 1. Thick-walled gallbladder containing hyperdense material suggesting sludge and pericholecystic inflammation. The findings suggest acute cholecystitis. Clinical correlation is recommended. 2. Enlarged liver. 3. Markedly enlarged heart. 4. Small amount of ascites within the abdomen or pelvis. 5. Mild degenerative changes and scoliosis of the thoracolumbar spine.
[2018-01-01] MEDS: ceFAZolin 1 GM Premix Inj 1 GM/50 ML FROZ.PIGGY IV.SIG SCH (22:15)
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
[2018-01-02] MEDS: ceFAZolin 1 GM Premix Inj 1 GM/50 ML FROZ.PIGGY IV.SIG SCH ×3 (07:03→21:59)
[2018-01-02 07:20] LABS: Baso # (Auto) 0.1 th/mm3 (0.0-0.2); Baso % (Auto) 0.8 % (0.0-2.0); Eos % (Auto) 0.3 % (0.0-4.0); Hematocrit 46.2 % (39.0-51.0); Hemoglobin 16.2 gm/dL (13.0-17.0); Lymph # (Auto) 1.8 th/mm3 (1.0-4.8); Lymph % (Auto) 23.2 % (9.0-44.0); Mean Corpuscular Hemoglobin 33.1 pg (27.0-34.0); Mean Corpuscular Volume 94.7 fL (80.0-100.0); Mean Platelet Volume 9.1 fL (7.0-11.0); Mono # (Auto) 0.9 th/mm3 (0.0-0.9); Mono % (Auto) 12.1 % (0.0-8.0); Neut # (Auto) 4.8 th/mm3 (1.8-7.7); Neut % (Auto) 63.6 % (16.0-70.0); Platelet Count 196 th/mm3 (150-450); Red Blood Count 4.87 mil/mm3 (4.50-5.90); Red Cell Distribution Width 16.1 % (11.6-17.2); White Blood Count 7.6 th/mm3 (4.0-11.0)
[2018-01-02 07:55] LABS: Alanine Aminotransferase 177 U/L (12-78); Albumin 2.9 g/dL (3.4-5.0); Alkaline Phosphatase 74 U/L (45-117); Anion Gap 11 meq/L (5-15); Aspartate Aminotransferase 181 U/L (15-37); Blood Urea Nitrogen 28 mg/dL (7-18); Calcium 8.4 mg/dL (8.5-10.1); Carbon Dioxide 23.4 meq/L (21.0-32.0); Chloride 105 meq/L (98-107); Glomerular Filtration Rate 31 mL/min (>89); Glucose,Random 88 mg/dL (74-106); Potassium 4.8 meq/L (3.5-5.1); Sodium 139 meq/L (136-145); Total Protein 5.8 g/dL (6.4-8.2)
[2018-01-02] MEDS: Senna/Docusate Sodium 8.6/50 MG Tablet PO SCH ×2 (08:56→20:32)
[2018-01-02] MEDS: Furosemide 20 MG Tablet PO SCH (08:56)
[2018-01-02] MEDS ORDERED: Lisinopril 5 MG Tablet PO SCH (09:00)
--- NOTE | 2018-01-02 10:46 | P.PNGI ---
Subjective Interval history: Patient resting soundly with eyes closed Continued right upper quadrant abdominal pain reported No active bleeding reported Physical Exam Vital signs: Vital Signs 01/01/18 10:45 01/01/18 11:49 01/01/18 12:00 Temperature Pulse Rate 105 H 102 H Respiratory Rate 16 16 Blood Pressure 100/67 Pulse Oximetry 94 L 01/01/18 19:40 01/01/18 23:53 01/02/18 03:22 Temperature 97.7 F 97.8 F 98.7 F Pulse Rate 101 H 96 H 89 Respiratory Rate 18 20 18 Blood Pressure 99/72 L 100/68 98/63 L Pulse Oximetry 94 L 94 L 94 L 01/02/18 07:47 Temperature 98.6 F Pulse Rate 93 H Respiratory Rate 20 Blood Pressure 86/69 L Pulse Oximetry 96 Intake & Output 01/01/18 01/02/18 01/02/18 18:59 06:59 18:59 Intake Total 1000 / 1000 250 / 250 50 / 50 Balance 1000 / 1000 250 / 250 50 / 50 Intake: IV 1000 / 1000 250 / 250 50 / 50 NS Inj 500 ML @ 1000 mls/hr IV. 1000 / 1000 [facility] Rx#:[id number] Ancef 1 GM Premix Inj 1 gm In 50 / 50 50 / 50 50 ml @ 100 mls/hr IV.SIG Q8HR [facility] Rx#:[id number] Flagyl 500 MG Inj 100 ML @ 100 200 / 200 mls/hr IV.SIG Q8H [facility] Rx#: [id number] - Constitutional no acute distress - Routine HEENT Exam Head: Present: normocephalic - Routine Respiratory Exam Absent: accessory muscle use - Routine Abdominal Exam Present: soft, normoactive bowel sounds, tenderness. Absent: distended, firm - Routine Skin Exam Present: dry, warm Results - Labs CBC & Chem 7: 01/02/18 06:55 01/02/18 06:55 Laboratory Results - last 24 hr 01/01/18 01/01/18 01/02/18 09:10 09:10 06:55 WBC 7.6 RBC 4.87 Hgb 16.2 Hct 46.2 MCV 94.7 MCH 33.1 MCHC 35.0 RDW 16.1 Plt Count 196 MPV 9.1 Neut % (Auto) 63.6 Lymph % (Auto) 23.2 [place] % (Auto) 12.1 H Eos % (Auto) 0.3 Baso % (Auto) 0.8 Neut # (Auto) 4.8 Lymph # (Auto) 1.8 [place] # (Auto) 0.9 Eos # (Auto) 0.0 Baso # (Auto) 0.1 WBC Differential . Differential Comment Auto diff final Sodium 137 Potassium 4.5 Chloride 103 Carbon Dioxide 24.5 Anion Gap 10 BUN 24 H Creatinine 2.20 H Estimated GFR 33 L Random Glucose 100 Calcium 8.4 L Total Bilirubin AST ALT Alkaline Phosphatase Total Protein Albumin Lipase 60 L Cancelled 01/02/18 06:55 WBC RBC Hgb Hct MCV MCH MCHC RDW Plt Count MPV Neut % (Auto) Lymph % (Auto) [place] % (Auto) Eos % (Auto) Baso % (Auto) Neut # (Auto) Lymph # (Auto) [place] # (Auto) Eos # (Auto) Baso # (Auto) WBC Differential Differential Comment Sodium 139 Potassium 4.8 Chloride 105 Carbon Dioxide 23.4 Anion Gap 11 BUN 28 H Creatinine 2.37 H Estimated GFR 31 L Random Glucose 88 Calcium 8.4 L Total Bilirubin 1.0 AST 181 H ALT 177 H Alkaline Phosphatase 74 Total Protein 5.8 L D Albumin 2.9 L D Lipase - Imaging Impressions Bile Acid Absorption NM 01/01/18 00:00 CONCLUSION: 1. Prompt visualization of the gallbladder excludes cystic duct obstruction. 2. Very little emptying of the gallbladder after cholecystokinin with reproduction of typical clinical symptoms. These findings are characteristic of chronic cholecystitis. Abdomen/Pelvis CT 01/01/18 12:29 CONCLUSION: 1. Thick-walled gallbladder containing hyperdense material suggesting sludge and pericholecystic inflammation. The findings suggest acute cholecystitis. Clinical correlation is recommended. 2. Enlarged liver. 3. Markedly enlarged heart. 4. Small amount of ascites within the abdomen or pelvis. 5. Mild degenerative changes and scoliosis of the thoracolumbar spine. Assessment and Plan (1) Abdominal pain Status: Acute Code(s): R10.9 - Unspecified abdominal pain - Plan This patient is a 37-year-old male with a significant past medical history of congestive heart failure with an EF of 20%, chronic kidney disease, cocaine abuse, past skull fracture, and cardiomyopathy. Patient presented to the ER at [facility] on 01/01/2018 with complaint of right-sided abdominal pain onset 3 days ago. Patient describes the pain as sharp and spasmodic states that it is intermittent and is aggravated by eating fried or fatty foods and also with carbonated beverages. Patient endorses decreased appetite over the last week. Patient unsure if he has ever had upper endoscopy in the past. Denies ever having had a colonoscopy in the past. Patient reports one episode of dark emesis and dark stools 3 days ago. Patient describes same as dark brown in color. Patient denies use of NSAIDs or aspirin. Patient denies any known family history for gastrointestinal disorders. States he smokes 3 cigarettes/week. Reports he is a social drinker of alcoholic products. Upon consultation, patient denies any use of illicit drugs however, upon admission he acknowledged using cocaine earlier prior to admission because he thought it would relieve his abdominal pain. Patient was recently admitted 1 week ago for chest pain with exacerbation of CHF. Our service has been consulted to evaluate patient for abdominal pain with nausea vomiting and dark stools. Abdominal pain Possible melena stools/hematemesis Patient endorses 3-day history of right-sided abdominal pain that he describes as spasmodic. Patient rates pain at 8 out of 10 and states it is aggravated by eating fried or fatty foods. Patient reports one episode of dark emesis and stools 3 days ago. Patient denies use of NSAIDs or aspirin. 01/01/2018 hemoglobin 17.1 hematocrit 52.4 BUN 24 creatinine 2.2 GFR 33 lipase 84 01/01/2018 CT abdomen and pelvis revealed the following findings-- Thick-walled gallbladder containing hyperdense material suggesting sludge and pericholecystic inflammation. The findings suggest acute cholecystitis. Clinical correlation is recommended. Enlarged liver. Markedly enlarged heart. Small amount of ascites within the abdomen or pelvis. Mild degenerative changes and scoliosis of the thoracolumbar spine. 01/02/2018 Abdominal pain/cholecystitis/choledocholithiasis Patient resting soundly. Continued abdominal pain reported. No reported bleeding. Per general surgery consultation, patient is not a surgical candidate due to ejection fraction of less than 10% during last admission. We will consult IR for percutaneous drainage of gallbladder. Hemoglobin 16.2 hematocrit 46.2 platelet count 196 Total bilirubin 1.0 AST 181 ALT 177 alk phos 74. 01/02/18 Spoke with , who feels patient not considered a candidate for percutaneous drainage as HIDA scan normal and cystic duct patent. Plan -N.p.o. -General surgery consult noted and appreciated -IR consulted for percutaneous drainage of gallbladder -Avoid NSAIDs or aspirin -Analgesics and antiemetics as per attending -Ramiro, Dyan Parr and Nasra -Monitor labs -PPI -Supportive care -GI will sign off at this time, please reconsult if needed. This patient has been seen by myself and Dr. Medina and this note is written on his behalf - Attending Attestation Dr. Medina
--- NOTE | 2018-01-02 11:04 | P.PNIM ---
Subjective Interval history: Patient seen and examined this morning at the bedside with friend at the bedside + abdominal reported bilaterally upper quadrants as per patient no emesis but did require nausea medications for symtoms denied fever or chills has been NPO and GI/Surgery consultations both appreciated EF of < 20% extreme risk for cardiac arrythmias. This was discussed with patient but he does not seems to be an ative participant in his own care. Explained that his condition is very serious and that compliance with recommended treatments is VERY important. Patient eventually verbalized understanding and frustration with being told he is not a surgical candidate. Physical Exam Vital signs: Last Vital Signs Temp 98.6 F 01/02/18 07:47 Pulse 93 H 01/02/18 07:47 Resp 20 01/02/18 07:47 BP 86/69 L 01/02/18 07:47 Pulse Ox 96 01/02/18 07:47 Intake & Output 12/31/17 01/01/18 01/02/18 01/03/18 06:59 06:59 06:59 06:59 Intake Total 1250 / 1250 50 / 50 Balance 1250 / 1250 50 / 50 Weight 72.575 kg Gen: NAD CVS: S1/S2 Resp: reduced breath sounds base of the lung bilaterally. no wheeze GI: soft, mild tenderness in RUQ with roca sign evident. + bowel sounds. No scar.Non distended. No ascities. Ext: No leg edema. No calf tenderness Skin: multiple skin tatoo but doesnt appear infected skin Results Labs CBC & Chem 7: 01/02/18 06:55 01/02/18 06:55 Imaging Imaging: Impressions Bile Acid Absorption NM 01/01/18 00:00 CONCLUSION: 1. Prompt visualization of the gallbladder excludes cystic duct obstruction. 2. Very little emptying of the gallbladder after cholecystokinin with reproduction of typical clinical symptoms. These findings are characteristic of chronic cholecystitis. Abdomen/Pelvis CT 01/01/18 12:29 CONCLUSION: 1. Thick-walled gallbladder containing hyperdense material suggesting sludge and pericholecystic inflammation. The findings suggest acute cholecystitis. Clinical correlation is recommended. 2. Enlarged liver. 3. Markedly enlarged heart. 4. Small amount of ascites within the abdomen or pelvis. 5. Mild degenerative changes and scoliosis of the thoracolumbar spine. Assessment and Plan (1) Abdominal pain: Code(s): R10.9 - Unspecified abdominal pain Status: Acute (2) Acute cholecystitis: Code(s): K81.0 - Acute cholecystitis Status: Acute (3) Elevated liver enzymes: Code(s): R74.8 - Abnormal levels of other serum enzymes Status: Acute Plan Infectious disease: Acute cholecystitis - Surgery consulted and recommendations appreciated. NOT surgical candidate due to cardiac history. - Trend liver function tests daily. - GI consulted and recommendations also appreciated. IR request placed for IR drainage - Continue Abx therapy: ciprofloxacin and flagyl 500mg IV TID - follow up culture results taken from IR drainage placement and tailor abx therapy. Gastroenterology: Abdominal pain, Elevated LFT - Hgb stable again. Lower concern for acute GIB. maintain IV access for now however and monitor - LFT elevated likely result of hypoperfusion from low EF from heart. Nephrology: Acute kidney injury - result of poor effective circulating volume in setting of poor EF. Cardiology: Cardiomyopathy - reduced EF < 10% places patient at risk for sudden cardiac from arrythmia. - keep K > 4 and Mg > 2 - Cardiology consulted and recommendations appreciated. Not a candidate for ICD. Can follow up outpatient with cardiology on discharge. - Small fluid boluses prn if needed for hypotension Psychiatry: Drug abuse - patient counselled on importance of stopping drug use. Patient verablized understanding Code: ELAYNE diet: npo dvt ppx dispo: medicine service. plan discussed with patient all questions adressed. Progress Note: Quality VTE Deep Vein Thrombosis/Pulmonary Embolism Present on Admission: No _ (1) Abdominal pain Qualifiers: Abdominal location:
--- NOTE | 2018-01-02 11:46 | IR ---
EXAM DATE: 01/02/2018 11:33 AM EST AGE/SEX: 37 years / Male INDICATIONS: Patient with possible acute cholecystitis, needs evaluation for evaluation of possible cholecystostomy drain. COMPARISON: [facility] [place], [place] HEPATOBILIARY, 01/01/2018. [facility] [place], CT ABDOMEN & PELVIS W/O CONTRAST, 8. [facility] [place], [place] ABDOMEN COMPLETE, 01/01/2018. . IMAGING STUDIES: The patient's CT examination and ultrasound do reveal gallbladder wall thickening, however the gallbl adder is not particularly distended. There was no sonographic Busch's sign. The patient's hepatobili cristina scan documents patency of the cystic duct, therefore excluding acute cholecystitis. The gallbladd er wall thickening is likely related to congestive failure and chronic liver and gallbladder disease. ASSESSMENT: I do not believe the patient is an appropriate candidate for gallbladder drainage at present. The case was discussed with Ms. Laura and Dr. Hoyos. Electronically signed by: Chilo Brower MD 01/02/2018 11:45 AM EST
--- NOTE | 2018-01-02 13:01 | P.PNVS ---
Subjective Subjective/Hospital Course: This gentleman was diagnosed in 08/2017 with cardiomyopathy, ejection fraction of 10%. The patient had a cardiac catheterization, which was normal, had a LifeVest placed, but he could not afford medications. Instead, he continued smoking about 2 packs a day. The patient had a poor report with cardiology and staff and was found to have illicit drugs in his system. The patient reports progressive dyspnea, abdominal distention last week. He was discharged and again did not take any of his medications. Creatinine on discharge was 1.5; now is 2.8. Based on all the above, it should be noted that this patient is not a candidate for any major surgery nor general anesthesia. With ejection fraction of less than 10%, this patient's mortality is absolutely prohibitive of any surgery. At this point he presents with abdominal pain which is diffuse and initial CT scan was read as acute cholecystitis. Nonetheless this patient does not have Busch sign is diffusely tender in the entire abdomen and his HIDA scan was negative. He is simply distended gallbladder but no signs of acute condition. As above noted patient is not a candidate for any type of surgery and I discussed the case with Dr. Brower. Patient does not require percutaneous drainage of the gallbladder either because this is not an acute condition. Based on the fact the patient is not a surgical candidate and does not have a acute surgical condition, will sign off Thanks J Objective Vital Signs / I&O: Vital Signs 01/01/18 19:40 01/01/18 23:53 01/02/18 03:22 Temperature 97.7 F 97.8 F 98.7 F Pulse Rate 101 H 96 H 89 Respiratory Rate 18 20 18 Blood Pressure 99/72 L 100/68 98/63 L Pulse Oximetry 94 L 94 L 94 L 01/02/18 07:47 01/02/18 11:00 01/02/18 12:44 Temperature 98.6 F 98.5 F Pulse Rate 93 H 96 H 173 H Respiratory Rate 20 22 Blood Pressure 86/69 L 74/45 L Pulse Oximetry 96 90 L Intake & Output 01/01/18 01/02/18 01/02/18 18:59 06:59 18:59 Intake Total 1000 / 1000 250 / 250 50 / 50 Balance 1000 / 1000 250 / 250 50 / 50 Intake: IV 1000 / 1000 250 / 250 50 / 50 NS Inj 500 ML @ 1000 mls/hr IV. 1000 / 1000 SIG [facility] Rx#:[id number] Ancef 1 GM Premix Inj 1 gm In 50 / 50 50 / 50 50 ml @ 100 mls/hr IV.SIG Q8HR [facility] Rx#:[id number] Flagyl 500 MG Inj 100 ML @ 100 200 / 200 mls/hr IV.SIG Q8H [facility] Rx#: [id number] Laboratory Results - last 24 hr 01/01/18 01/01/18 01/02/18 09:10 09:10 06:55 WBC 7.6 RBC 4.87 Hgb 16.2 Hct 46.2 MCV 94.7 MCH 33.1 MCHC 35.0 RDW 16.1 Plt Count 196 MPV 9.1 Neut % (Auto) 63.6 Lymph % (Auto) 23.2 [place] % (Auto) 12.1 H Eos % (Auto) 0.3 Baso % (Auto) 0.8 Neut # (Auto) 4.8 Lymph # (Auto) 1.8 [place] # (Auto) 0.9 Eos # (Auto) 0.0 Baso # (Auto) 0.1 WBC Differential . Differential Comment Auto diff final Sodium 137 Potassium 4.5 Chloride 103 Carbon Dioxide 24.5 Anion Gap 10 BUN 24 H Creatinine 2.20 H Estimated GFR 33 L Random Glucose 100 Calcium 8.4 L Total Bilirubin AST ALT Alkaline Phosphatase Total Protein Albumin Lipase 60 L Cancelled 01/02/18 06:55 WBC RBC Hgb Hct MCV MCH MCHC RDW Plt Count MPV Neut % (Auto) Lymph % (Auto) [place] % (Auto) Eos % (Auto) Baso % (Auto) Neut # (Auto) Lymph # (Auto) [place] # (Auto) Eos # (Auto) Baso # (Auto) WBC Differential Differential Comment Sodium 139 Potassium 4.8 Chloride 105 Carbon Dioxide 23.4 Anion Gap 11 BUN 28 H Creatinine 2.37 H Estimated GFR 31 L Random Glucose 88 Calcium 8.4 L Total Bilirubin 1.0 AST 181 H ALT 177 H Alkaline Phosphatase 74 Total Protein 5.8 L D Albumin 2.9 L D Lipase Impressions Bile Acid Absorption NM 01/01/18 00:00 CONCLUSION: 1. Prompt visualization of the gallbladder excludes cystic duct obstruction. 2. Very little emptying of the gallbladder after cholecystokinin with reproduction of typical clinical symptoms. These findings are characteristic of chronic cholecystitis. Abdomen Ultrasound 01/01/18 04:37 CONCLUSION: 1. Marked gallbladder wall thickening without a sonographic Busch's sign. 2. Echogenic liver presumably fatty infiltration. 3. Mildly echogenic kidneys suggesting chronic medical renal disease Abdomen/Pelvis CT 01/01/18 12:29 CONCLUSION: 1. Thick-walled gallbladder containing hyperdense material suggesting sludge and pericholecystic inflammation. The findings suggest acute cholecystitis. Clinical correlation is recommended. 2. Enlarged liver. 3. Markedly enlarged heart. 4. Small amount of ascites within the abdomen or pelvis. 5. Mild degenerative changes and scoliosis of the thoracolumbar spine.
[2018-01-02 13:42] LABS: Bilirubin,Urine Negative (Negative); Clarity,Urine Clear (Clear); Color,Urine Yellow (Yellw/Straw); Glucose,Urine (UA) Negative (Negative); Hyaline Casts,Urine 7 /lpf (0-3); Leukocyte Esterase,Urine Negative (Negative); Mucus,Urine Few /lpf (Occasional); Nitrite,Urine Negative (Negative); Specific Gravity,Urine 1.011 (1.002-1.035)
[2018-01-02] MEDS ORDERED: Mag Sulf 1 gm/100 ml Premix 100 ML IV.SIG ONE (14:05)
[2018-01-02] MEDS: Ciprofloxacin 400 MG/200 ML 400 MG/200 ML PIGGYBACK IV.SIG SCH (14:59)
[2018-01-02] MEDS ORDERED: NACL 0.45% IV.SIG PRN (23:51)
[2018-01-02] MEDS ORDERED: DEXTROSE IV.SIG PRN (23:51)
[2018-01-03] MEDS: Morphine Sulfate Inj 2 MG/ML Vial IV.PUSH PRN ×5 (02:40→21:29)
[2018-01-03] MEDS: ceFAZolin 1 GM Premix Inj 1 GM/50 ML FROZ.PIGGY IV.SIG SCH ×3 (05:16→21:26)
[2018-01-03 05:23] LABS: Hematocrit 50.4 % (39.0-51.0); Hemoglobin 17.1 gm/dL (13.0-17.0); Mean Corpuscular HGB Conc 33.8 % (32.0-36.0); Mean Corpuscular Hemoglobin 32.3 pg (27.0-34.0); Mean Corpuscular Volume 95.4 fL (80.0-100.0); Mean Platelet Volume 9.7 fL (7.0-11.0); Platelet Count 214 th/mm3 (150-450); Red Blood Count 5.29 mil/mm3 (4.50-5.90); Red Cell Distribution Width 16.4 % (11.6-17.2)
[2018-01-03 05:39] LABS: Calcium 8.2 mg/dL (8.5-10.1); Carbon Dioxide 21.9 meq/L (21.0-32.0); Magnesium 2.3 mg/dL (1.5-2.5); Potassium 4.8 meq/L (3.5-5.1)
[2018-01-03] MEDS: Senna/Docusate Sodium 8.6/50 MG Tablet PO SCH ×2 (08:10→21:27)
[2018-01-03] MEDS: Furosemide 20 MG Tablet PO SCH (08:10)
--- NOTE | 2018-01-03 11:24 | P.PNVS ---
Subjective Subjective/Hospital Course: This gentleman was diagnosed in 08/2017 with cardiomyopathy, ejection fraction of 10%. The patient had a cardiac catheterization, which was normal, had a LifeVest placed, but he could not afford medications. Instead, he continued smoking about 2 packs a day. The patient had a poor report with cardiology and staff and was found to have illicit drugs in his system. The patient reports progressive dyspnea, abdominal distention last week. He was discharged and again did not take any of his medications. Creatinine on discharge was 1.5; now is 2.8. Based on all the above, it should be noted that this patient is not a candidate for any major surgery nor general anesthesia. With ejection fraction of less than 10%, this patient's mortality is absolutely prohibitive of any surgery. At this point he presents with abdominal pain which is diffuse and initial CT scan was read as acute cholecystitis. Nonetheless this patient does not have Busch sign is diffusely tender in the entire abdomen and his HIDA scan was negative. He is simply distended gallbladder but no signs of acute condition. As above noted patient is not a candidate for any type of surgery and I discussed the case with Dr. Brower. Patient does not require percutaneous drainage of the gallbladder either because this is not an acute condition. Based on the fact the patient is not a surgical candidate and does not have a acute surgical condition, will sign off Thanks J 01/03/2018 Patient transferred to ICU with shortness of breath Abdomen bar gauger and lubricator tender but no rebound no guarding noted No leukocytosis present and patient remains afebrile As noted in my original consultation this patient is chronically thickened gallbladder wall and does not have acute cholecystitis Numerous studies have shown correlation with an ejection fraction measured by echo and nuclear scan versus patient's survival and that in this particular situation ejection fraction less than 30% is associated with 16-20% annual mortality and correlates to the left ventricular dysfunction. Based on all this patient is not a candidate for surgery Objective Vital Signs / I&O: Vital Signs 01/02/18 12:44 01/02/18 13:01 01/02/18 14:27 Temperature 98.5 F Pulse Rate 173 H 88 Respiratory Rate 22 14 Blood Pressure 74/45 L 68/42 L 82/57 L Pulse Oximetry 90 L 01/02/18 14:32 01/02/18 15:00 01/02/18 15:15 Temperature Pulse Rate 97 H 98 H 96 H Respiratory Rate 18 19 Blood Pressure 104/51 L Pulse Oximetry 94 L 01/02/18 15:30 01/02/18 16:00 01/02/18 16:30 Temperature 98.1 F Pulse Rate 91 H 92 H 93 H Respiratory Rate 17 17 17 Blood Pressure 87/59 L 85/61 L 75/60 L Pulse Oximetry 99 95 94 L 01/02/18 16:33 01/02/18 17:00 01/02/18 17:30 Temperature Pulse Rate 94 H 96 H 93 H Respiratory Rate 19 22 16 Blood Pressure 79/58 L 82/52 L 76/56 L Pulse Oximetry 97 99 98 01/02/18 18:00 01/02/18 18:30 01/02/18 19:00 Temperature Pulse Rate 94 H 89 93 H Respiratory Rate 23 11 L 18 Blood Pressure 77/58 L 75/54 L 75/54 L Pulse Oximetry 99 98 97 01/02/18 19:30 01/02/18 20:00 01/02/18 20:30 Temperature 98.6 F Pulse Rate 93 H 94 H 95 H Respiratory Rate 9 L 19 22 Blood Pressure 77/55 L 78/55 L 97/62 L Pulse Oximetry 95 93 L 95 01/02/18 21:00 01/02/18 21:30 01/02/18 22:00 Temperature Pulse Rate 96 H 96 H 93 H Respiratory Rate 23 21 13 Blood Pressure 89/54 L 85/63 L 88/65 L Pulse Oximetry 99 99 99 01/02/18 23:00 01/02/18 23:06 01/03/18 00:00 Temperature Pulse Rate 95 H 95 H 97 H Respiratory Rate 14 18 22 Blood Pressure 90/67 L Pulse Oximetry 97 98 96 01/03/18 00:06 01/03/18 01:00 01/03/18 01:06 Temperature Pulse Rate 97 H 101 H 99 H Respiratory Rate 21 25 H 24 Blood Pressure 93/68 L 96/65 L Pulse Oximetry 95 95 96 01/03/18 02:00 01/03/18 02:06 01/03/18 03:00 Temperature Pulse Rate 102 H 102 H 105 H Respiratory Rate 24 19 17 Blood Pressure 98/68 L Pulse Oximetry 93 L 96 97 01/03/18 03:06 01/03/18 03:09 01/03/18 04:00 Temperature Pulse Rate 106 H 104 H Respiratory Rate 24 24 19 Blood Pressure 101/66 Pulse Oximetry 96 92 L 01/03/18 04:06 01/03/18 05:00 01/03/18 05:06 Temperature 98.2 F Pulse Rate 102 H 100 H 102 H Respiratory Rate 12 8 L 22 Blood Pressure 94/74 L 94/67 L Pulse Oximetry 96 97 90 L 01/03/18 06:00 01/03/18 06:06 01/03/18 07:00 Temperature 98.9 F Pulse Rate 101 H 99 H 97 H Respiratory Rate 20 13 11 L Blood Pressure 88/71 L Pulse Oximetry 92 L 99 96 01/03/18 07:06 01/03/18 08:00 01/03/18 08:06 Temperature Pulse Rate 99 H 101 H 99 H Respiratory Rate 20 22 12 Blood Pressure 92/71 L 98/75 L Pulse Oximetry 93 L 94 L 98 01/03/18 08:09 Temperature Pulse Rate Respiratory Rate 15 Blood Pressure Pulse Oximetry Intake & Output 01/02/18 01/03/18 01/03/18 18:59 06:59 18:59 Intake Total 1500 / 1500 350 / 350 50 / 50 Output Total 425 / 425 Balance 1500 / 1500 -75 / -75 50 / 50 Weight 82 kg 82 kg Intake: IV 1500 / 1500 300 / 300 NS Inj 1,000 ML @ 42 mls/hr IV. 1000 / 1000 CONT .[id number] [facility] Rx#:[id number] Cipro 400 MG/200 ML Inj 400 mg 200 / 200 In 200 ml @ 200 mls/hr IV.SIG Q24H [facility] Rx#:[id number] Magnesium Sulfate 1 gm/D5W 100 100 / 100 ml Premix 100 ML @ 100 mls/hr IV.SIG ONCE ONE Rx#:[id number] Ancef 1 GM Premix Inj 1 gm In 100 / 100 100 / 100 50 ml @ 100 mls/hr IV.SIG Q8HR [facility] Rx#:[id number] Flagyl 500 MG Inj 100 ML @ 100 100 / 100 200 / 200 mls/hr IV.SIG Q8H [facility] Rx#: [id number] Oral 50 / 50 50 / 50 Output: Urine 425 / 425 Other: Date of Last Bowel Movement 01/01/18 01/01/18 01/01/18 Weight On Admission 82 kg Laboratory Results - last 24 hr 01/02/18 01/03/18 01/03/18 13:18 04:41 04:41 WBC 9.0 RBC 5.29 Hgb 17.1 H Hct 50.4 MCV 95.4 MCH 32.3 MCHC 33.8 RDW 16.4 Plt Count 214 MPV 9.7 Sodium 135 L Potassium 4.8 Chloride 102 Carbon Dioxide 21.9 Anion Gap 11 BUN 29 H Creatinine 2.38 H Estimated GFR 31 L Random Glucose 109 H Calcium 8.2 L Magnesium 2.3 Urine Color Yellow Urine Clarity Clear Urine pH 5.0 Ur Specific [place] 1.011 Urine Protein Negative Urine Glucose (UA) Negative Urine Ketones Negative Urine Occult Blood Negative Urine Nitrate Negative Urine Bilirubin Negative Urine Urobilinogen Less than 2 Ur Leukocyte Esterase Negative Urine WBC 1 Hyaline Casts 7 Granular Casts 1 Urine Mucus Few H Micro UA Comment Culture not ind Ur Microscopic Review Not Reportable Urine Culture Comments Culture not ind Microbiology 01/02/18 13:17 Aerobic Blood Culture - Preliminary Blood - Peripheral No growth in 1 day Anaerobic Blood Culture - Final QNS - See aerobic report. 01/02/18 13:22 Aerobic Blood Culture - Preliminary Blood - Peripheral No growth in 1 day Anaerobic Blood Culture - Preliminary No growth in 1 day Impressions Bile Acid Absorption NM 01/01/18 00:00 CONCLUSION: 1. Prompt visualization of the gallbladder excludes cystic duct obstruction. 2. Very little emptying of the gallbladder after cholecystokinin with reproduction of typical clinical symptoms. These findings are characteristic of chronic cholecystitis. Abdomen/Pelvis CT 01/01/18 12:29 CONCLUSION: 1. Thick-walled gallbladder containing hyperdense material suggesting sludge and pericholecystic inflammation. The findings suggest acute cholecystitis. Clinical correlation is recommended. 2. Enlarged liver. 3. Markedly enlarged heart. 4. Small amount of ascites within the abdomen or pelvis. 5. Mild degenerative changes and scoliosis of the thoracolumbar spine.
--- NOTE | 2018-01-03 11:44 | P.PN ---
Subjective Interval history: Follow-up cardiomyopathy, acute kidney injury and cholecystitis. Patient wanting to eat states stable nausea no vomiting. Was able to ambulate in the room without dizziness or chest pain. He is voiding and stooling. Physical Exam Vital signs: Vital Signs 01/02/18 12:44 01/02/18 13:01 01/02/18 14:27 Temperature 98.5 F Pulse Rate 173 H 88 Respiratory Rate 22 14 Blood Pressure 74/45 L 68/42 L 82/57 L Pulse Oximetry 90 L 01/02/18 14:32 01/02/18 15:00 01/02/18 15:15 Temperature Pulse Rate 97 H 98 H 96 H Respiratory Rate 18 19 Blood Pressure 104/51 L Pulse Oximetry 94 L 01/02/18 15:30 01/02/18 16:00 01/02/18 16:30 Temperature 98.1 F Pulse Rate 91 H 92 H 93 H Respiratory Rate 17 17 17 Blood Pressure 87/59 L 85/61 L 75/60 L Pulse Oximetry 99 95 94 L 01/02/18 16:33 01/02/18 17:00 01/02/18 17:30 Temperature Pulse Rate 94 H 96 H 93 H Respiratory Rate 19 22 16 Blood Pressure 79/58 L 82/52 L 76/56 L Pulse Oximetry 97 99 98 01/02/18 18:00 01/02/18 18:30 01/02/18 19:00 Temperature Pulse Rate 94 H 89 93 H Respiratory Rate 23 11 L 18 Blood Pressure 77/58 L 75/54 L 75/54 L Pulse Oximetry 99 98 97 01/02/18 19:30 01/02/18 20:00 01/02/18 20:30 Temperature 98.6 F Pulse Rate 93 H 94 H 95 H Respiratory Rate 9 L 19 22 Blood Pressure 77/55 L 78/55 L 97/62 L Pulse Oximetry 95 93 L 95 01/02/18 21:00 01/02/18 21:30 01/02/18 22:00 Temperature Pulse Rate 96 H 96 H 93 H Respiratory Rate 23 21 13 Blood Pressure 89/54 L 85/63 L 88/65 L Pulse Oximetry 99 99 99 01/02/18 23:00 01/02/18 23:06 01/03/18 00:00 Temperature Pulse Rate 95 H 95 H 97 H Respiratory Rate 14 18 22 Blood Pressure 90/67 L Pulse Oximetry 97 98 96 01/03/18 00:06 01/03/18 01:00 01/03/18 01:06 Temperature Pulse Rate 97 H 101 H 99 H Respiratory Rate 21 25 H 24 Blood Pressure 93/68 L 96/65 L Pulse Oximetry 95 95 96 01/03/18 02:00 01/03/18 02:06 01/03/18 03:00 Temperature Pulse Rate 102 H 102 H 105 H Respiratory Rate 24 19 17 Blood Pressure 98/68 L Pulse Oximetry 93 L 96 97 01/03/18 03:06 01/03/18 03:09 01/03/18 04:00 Temperature Pulse Rate 106 H 104 H Respiratory Rate 24 24 19 Blood Pressure 101/66 Pulse Oximetry 96 92 L 01/03/18 04:06 01/03/18 05:00 01/03/18 05:06 Temperature 98.2 F Pulse Rate 102 H 100 H 102 H Respiratory Rate 12 8 L 22 Blood Pressure 94/74 L 94/67 L Pulse Oximetry 96 97 90 L 01/03/18 06:00 01/03/18 06:06 01/03/18 07:00 Temperature 98.9 F Pulse Rate 101 H 99 H 97 H Respiratory Rate 20 13 11 L Blood Pressure 88/71 L Pulse Oximetry 92 L 99 96 01/03/18 07:06 01/03/18 08:00 01/03/18 08:06 Temperature Pulse Rate 99 H 101 H 99 H Respiratory Rate 20 22 12 Blood Pressure 92/71 L 98/75 L Pulse Oximetry 93 L 94 L 98 01/03/18 08:09 01/03/18 11:00 Temperature Pulse Rate 96 H Respiratory Rate 15 Blood Pressure Pulse Oximetry Intake & Output 01/02/18 01/03/18 01/03/18 18:59 06:59 18:59 Intake Total 1500 / 1500 350 / 350 50 / 50 Output Total 425 / 425 Balance 1500 / 1500 -75 / -75 50 / 50 Weight 82 kg 82 kg Intake: IV 1500 / 1500 300 / 300 NS Inj 1,000 ML @ 42 mls/hr IV. 1000 / 1000 CONT .[id number] [facility] Rx#:[id number] Cipro 400 MG/200 ML Inj 400 mg 200 / 200 In 200 ml @ 200 mls/hr IV.SIG Q24H [facility] Rx#:[id number] Magnesium Sulfate 1 gm/D5W 100 100 / 100 ml Premix 100 ML @ 100 mls/hr IV.SIG ONCE ONE Rx#:[id number] Ancef 1 GM Premix Inj 1 gm In 100 / 100 100 / 100 50 ml @ 100 mls/hr IV.SIG Q8HR [facility] Rx#:[id number] Flagyl 500 MG Inj 100 ML @ 100 100 / 100 200 / 200 mls/hr IV.SIG Q8H [facility] Rx#: [id number] Oral 50 / 50 50 / 50 Output: Urine 425 / 425 Other: Date of Last Bowel Movement 01/01/18 01/01/18 01/01/18 Weight On Admission 82 kg Narrative: Gen: NAD, well-developed and well-nourished CVS: S1/S2, regular rate and rhythm Resp: reduced breath sounds base of the lung bilaterally. No wheeze GI: soft, mild tenderness in RUQ with busch sign evident. + bowel sounds. No scar. Non distended. No ascites. Ext: No leg edema. No calf tenderness Skin: multiple skin tattoo but doesn't appear infected Neuro: Alert and oriented Results - Labs CBC & Chem 7: 01/03/18 04:41 01/03/18 04:41 Laboratory Results - last 24 hr 01/02/18 01/03/18 01/03/18 13:18 04:41 04:41 WBC 9.0 RBC 5.29 Hgb 17.1 H Hct 50.4 MCV 95.4 MCH 32.3 MCHC 33.8 RDW 16.4 Plt Count 214 MPV 9.7 Sodium 135 L Potassium 4.8 Chloride 102 Carbon Dioxide 21.9 Anion Gap 11 BUN 29 H Creatinine 2.38 H Estimated GFR 31 L Random Glucose 109 H Calcium 8.2 L Magnesium 2.3 Urine Color Yellow Urine Clarity Clear Urine pH 5.0 Ur Specific [place] 1.011 Urine Protein Negative Urine Glucose (UA) Negative Urine Ketones Negative Urine Occult Blood Negative Urine Nitrate Negative Urine Bilirubin Negative Urine Urobilinogen Less than 2 Ur Leukocyte Esterase Negative Urine WBC 1 Hyaline Casts 7 Granular Casts 1 Urine Mucus Few H Micro UA Comment Culture not ind Ur Microscopic Review Not Reportable Urine Culture Comments Culture not ind Microbiology 01/02/18 13:17 Blood - Peripheral Aerobic Blood Culture - Preliminary No growth in 1 day 01/02/18 13:17 Blood - Peripheral Anaerobic Blood Culture - Final QNS - See aerobic report. 01/02/18 13:22 Blood - Peripheral Aerobic Blood Culture - Preliminary No growth in 1 day 01/02/18 13:22 Blood - Peripheral Anaerobic Blood Culture - Preliminary No growth in 1 day - Imaging ITS Impressions Bile Acid Absorption NM 01/01/18 00:00 CONCLUSION: 1. Prompt visualization of the gallbladder excludes cystic duct obstruction. 2. Very little emptying of the gallbladder after cholecystokinin with reproduction of typical clinical symptoms. These findings are characteristic of chronic cholecystitis. Abdomen Ultrasound 01/01/18 04:37 CONCLUSION: 1. Marked gallbladder wall thickening without a sonographic Busch's sign. 2. Echogenic liver presumably fatty infiltration. 3. Mildly echogenic kidneys suggesting chronic medical renal disease Abdomen/Pelvis CT 01/01/18 12:29 CONCLUSION: 1. Thick-walled gallbladder containing hyperdense material suggesting sludge and pericholecystic inflammation. The findings suggest acute cholecystitis. Clinical correlation is recommended. 2. Enlarged liver. 3. Markedly enlarged heart. 4. Small amount of ascites within the abdomen or pelvis. 5. Mild degenerative changes and scoliosis of the thoracolumbar spine. - Procedures none Assessment and Plan - Assessment (1) Abdominal pain Code(s): R10.9 - Unspecified abdominal pain Status: Acute (2) Acute cholecystitis Code(s): K81.0 - Acute cholecystitis Status: Acute (3) Elevated liver enzymes Code(s): R74.8 - Abnormal levels of other serum enzymes Status: Acute - Plan Infectious disease: Cholecystitis - Per surgery and IR, this is chronic and that perc drain not needed. He is not a candidate for surgery secondary to prohibitive risk. Will start liquid diet and advance as tolerated. If not tolerated, will discuss with IR to consider percutaneous drainage - Trend liver function tests daily. - Continue Abx therapy: ciprofloxacin and flagyl 500mg IV TID Gastroenterology: Abdominal pain, Elevated LFT from liver congestion - Hgb stable again. Lower concern for acute GIB. - LFT elevated likely result of hypoperfusion from low EF from heart. Nephrology: Acute kidney injury - result of poor effective circulating volume in setting of poor EF. Cardiology: Cardiomyopathy - reduced EF < 10% places patient at risk for sudden cardiac from arrhythmia. - keep K > 4 and Mg > 2 - Cardiology consulted and recommendations appreciated. Not a candidate for ICD. Can follow up outpatient with cardiology on discharge. - Patient developed hypotension likely from meds. Today, he is hemodynamically improved. Small fluid boluses or vasopressors as needed for hypotension. Reinitiate Lasix, coreg and lisinopril if tolerated consider restarting med one at a time. Not a candidate for Entresto secondary to hypotension and acute kidney injury. Discussed with case management, not a candidate for ICD/ LifeVest secondary to noncompliance. Patient had LifeVest for 3 months Psychiatry: Drug abuse - patient counselled on importance of stopping drug use. Patient verbablized understanding Code: FC dvt ppx with subcu heparin Discharge Planning: If patient stable, transfer to see IC or MedSurg floor in the morning
[2018-01-03] MEDS: Ciprofloxacin 400 MG/200 ML 400 MG/200 ML PIGGYBACK IV.SIG SCH (14:01)
[2018-01-03] MEDS: Heparin - SQ 10,000 UNITS/ML Vial SQ SCH (21:29)
[2018-01-04] MEDS: Morphine Sulfate Inj 2 MG/ML Vial IV.PUSH PRN ×3 (02:55→19:02)
[2018-01-04] MEDS: ceFAZolin 1 GM Premix Inj 1 GM/50 ML FROZ.PIGGY IV.SIG SCH ×3 (05:13→21:33)
[2018-01-04 06:04] LABS: Baso % (Auto) 0.4 % (0.0-2.0); Eos % (Auto) 0.1 % (0.0-4.0); Hematocrit 49.9 % (39.0-51.0); Hemoglobin 16.9 gm/dL (13.0-17.0); Lymph # (Auto) 1.7 th/mm3 (1.0-4.8); Lymph % (Auto) 14.5 % (9.0-44.0); Mean Corpuscular HGB Conc 33.8 % (32.0-36.0); Mean Corpuscular Hemoglobin 32.4 pg (27.0-34.0); Mean Corpuscular Volume 95.8 fL (80.0-100.0); Mono # (Auto) 1.4 th/mm3 (0.0-0.9); Neut # (Auto) 8.4 th/mm3 (1.8-7.7); Platelet Count 202 th/mm3 (150-450); Red Blood Count 5.21 mil/mm3 (4.50-5.90); Red Cell Distribution Width 16.1 % (11.6-17.2); White Blood Count 11.5 th/mm3 (4.0-11.0)
[2018-01-04 06:33] LABS: Alanine Aminotransferase 391 U/L (12-78); Albumin 3.2 g/dL (3.4-5.0); Alkaline Phosphatase 83 U/L (45-117); Anion Gap 12 meq/L (5-15); Aspartate Aminotransferase 646 U/L (15-37); Blood Urea Nitrogen 35 mg/dL (7-18); Calcium 8.2 mg/dL (8.5-10.1); Carbon Dioxide 19.6 meq/L (21.0-32.0); Chloride 98 meq/L (98-107); Creatine Kinase 108 U/L (39-308); Glomerular Filtration Rate 25 mL/min (>89); Glucose,Random 97 mg/dL (74-106); Magnesium 2.2 mg/dL (1.5-2.5); Potassium 5.7 meq/L (3.5-5.1); Sodium 130 meq/L (136-145)
--- NOTE | 2018-01-04 08:36 | P.PN ---
Subjective Interval history: This is a pleasant 37 y/o Male, followed due to Cardiomyopathy, BENOIT and Cholecystitis, has Cholecystitis chronic disease, not candidate for surgery, Abdominal pain, EF 10% not candidate for ICD. 01/04: Followed by Vascular Surgery he has chronically thickened gallbladder wall and does not have acute cholecystitis, due to high risk non candidate for surgery. seen in the presence of his , has mild epigastric pain, no nausea, vomit or diarrhea. Physical Exam Vital signs: Vital Signs 01/03/18 11:00 01/03/18 12:00 01/03/18 13:56 Temperature Pulse Rate 96 H 101 H Respiratory Rate 22 18 Blood Pressure Pulse Oximetry 94 L 01/03/18 16:00 01/03/18 20:00 01/03/18 21:00 Temperature 97.8 F Pulse Rate 101 H 98 H 98 H Respiratory Rate 22 22 19 Blood Pressure Pulse Oximetry 94 L 95 94 L 01/03/18 21:33 01/03/18 22:00 01/03/18 23:00 Temperature Pulse Rate 99 H 100 H 99 H Respiratory Rate 21 18 13 Blood Pressure 96/76 L 104/69 108/72 Pulse Oximetry 97 97 96 01/04/18 00:00 01/04/18 01:00 01/04/18 02:00 Temperature 98.1 F Pulse Rate 102 H 96 H 99 H Respiratory Rate 18 11 L 17 Blood Pressure 106/73 102/73 107/73 Pulse Oximetry 91 L 97 97 01/04/18 03:00 01/04/18 04:00 01/04/18 05:00 Temperature 98.1 F Pulse Rate 96 H 99 H 97 H Respiratory Rate 13 12 18 Blood Pressure Pulse Oximetry 97 97 97 01/04/18 05:19 01/04/18 06:00 01/04/18 06:14 Temperature Pulse Rate 98 H 97 H 97 H Respiratory Rate 18 14 13 Blood Pressure 100/66 78/52 L 98/66 L Pulse Oximetry 97 97 97 Intake & Output 01/03/18 01/04/18 01/04/18 18:59 06:59 18:59 Intake Total 400 / 400 660 / 660 Output Total 0 / 0 Balance 400 / 400 660 / 660 Weight 85.2 kg Intake: IV 350 / 350 300 / 300 Cipro 400 MG/200 ML Inj 400 mg 200 / 200 In 200 ml @ 200 mls/hr IV.SIG Q24H [facility] Rx#:[id number] Ancef 1 GM Premix Inj 1 gm In 50 / 50 100 / 100 50 ml @ 100 mls/hr IV.SIG Q8HR [facility] Rx#:[id number] Flagyl 500 MG Inj 100 ML @ 100 100 / 100 200 / 200 mls/hr IV.SIG Q8H [facility] Rx#: [id number] Oral 50 / 50 360 / 360 Output: Stool 0 / 0 Other: # Voids 3 Date of Last Bowel Movement 01/01/18 01/01/18 # Bowel Movements 0 Narrative: Gen: NAD, well-developed and well-nourished CVS: S1/S2, regular rate and rhythm Resp: reduced breath sounds base of the lung bilaterally. No wheeze GI: soft, mild tender on epigastric area. Ext: No leg edema. No calf tenderness Skin: multiple skin tattoo but doesn't appear infected Neuro: Alert and oriented Results - Labs CBC & Chem 7: 01/04/18 04:31 01/04/18 04:31 Laboratory Results - last 24 hr 01/04/18 01/04/18 04:31 04:31 WBC 11.5 H RBC 5.21 Hgb 16.9 Hct 49.9 MCV 95.8 MCH 32.4 MCHC 33.8 RDW 16.1 Plt Count 202 MPV 10.0 Neut % (Auto) 73.0 H Lymph % (Auto) 14.5 Yates % (Auto) 12.0 H Eos % (Auto) 0.1 Baso % (Auto) 0.4 Neut # (Auto) 8.4 H Lymph # (Auto) 1.7 Yates # (Auto) 1.4 H Eos # (Auto) 0.0 Baso # (Auto) 0.0 WBC Differential . Differential Comment Auto diff final Sodium 130 L Potassium 5.7 H D Chloride 98 Carbon Dioxide 19.6 L Anion Gap 12 BUN 35 H Creatinine 2.87 H Estimated GFR 25 L Random Glucose 97 Calcium 8.2 L Magnesium 2.2 Total Bilirubin 1.6 H AST 646 H ALT 391 H Alkaline Phosphatase 83 Total Creatine Kinase 108 Total Protein 6.0 L Albumin 3.2 L Microbiology 01/02/18 13:17 Blood - Peripheral Aerobic Blood Culture - Preliminary No growth in 1 day 01/02/18 13:17 Blood - Peripheral Anaerobic Blood Culture - Final QNS - See aerobic report. 01/02/18 13:22 Blood - Peripheral Aerobic Blood Culture - Preliminary No growth in 1 day 01/02/18 13:22 Blood - Peripheral Anaerobic Blood Culture - Preliminary No growth in 1 day - Imaging Bile Acid Absorption NM 01/01/18 00:00 CONCLUSION: 1. Prompt visualization of the gallbladder excludes cystic duct obstruction. 2. Very little emptying of the gallbladder after cholecystokinin with reproduction of typical clinical symptoms. These findings are characteristic of chronic cholecystitis. Abdomen Ultrasound 01/01/18 04:37 CONCLUSION: 1. Marked gallbladder wall thickening without a sonographic Busch's sign. 2. Echogenic liver presumably fatty infiltration. 3. Mildly echogenic kidneys suggesting chronic medical renal disease Abdomen/Pelvis CT 01/01/18 12:29 CONCLUSION: 1. Thick-walled gallbladder containing hyperdense material suggesting sludge and pericholecystic inflammation. The findings suggest acute cholecystitis. Clinical correlation is recommended. 2. Enlarged liver. 3. Markedly enlarged heart. 4. Small amount of ascites within the abdomen or pelvis. 5. Mild degenerative changes and scoliosis of the thoracolumbar spine. - Procedures none Assessment and Plan - Assessment (1) Abdominal pain Code(s): R10.9 - Unspecified abdominal pain Status: Acute (2) Acute cholecystitis Code(s): K81.0 - Acute cholecystitis Status: Acute (3) Elevated liver enzymes Code(s): R74.8 - Abnormal levels of other serum enzymes Status: Acute - Plan Infectious disease: Cholecystitis - Per surgery and IR, this is chronic and that perc drain not needed. - Continue Abx therapy: Cefazolin, Ciprofloxacin and Metronidazole. 01/04: Followed by Vascular Surgery he has chronically thickened gallbladder wall and does not have acute cholecystitis, due to high risk non candidate for surgery. Abdominal pain, Elevated LFT from liver congestion - Hgb stable again. Lower concern for acute GIB. - LFT elevated likely result of hypoperfusion from low EF from heart. Nephrology: Acute kidney injury - result of poor effective circulating volume in setting of poor EF. worsening Creatinine level consult Nephrology specialist. Cardiology: Cardiomyopathy - reduced EF < 10% places patient at risk for sudden cardiac from arrhythmia. - keep K > 4 and Mg > 2 - Cardiology consulted and recommendations appreciated. Not a candidate for ICD. Can follow up outpatient with cardiology on discharge. - Patient developed hypotension likely from meds. Today, he is hemodynamically improved. Small fluid boluses or vasopressors as needed for hypotension. Reinitiate Lasix, coreg and lisinopril if tolerated consider restarting med one at a time. Not a candidate for Entresto secondary to hypotension and acute kidney injury. Discussed with case management, not a candidate for ICD/ LifeVest secondary to noncompliance. Patient had LifeVest for 3 months Psychiatry: Drug abuse - patient counselled on importance of stopping drug use. Patient verbalized understanding Code: FC dvt ppx with subcu heparin Code Status: Full code. Discussed Condition With: patient, Nurse and His , Discharge Planning: Transfer to Med Surg now.
[2018-01-04] MEDS: Heparin - SQ 10,000 UNITS/ML Vial SQ SCH ×2 (09:13→21:33)
[2018-01-04] MEDS: Senna/Docusate Sodium 8.6/50 MG Tablet PO SCH ×2 (09:15→21:32)
[2018-01-04] MEDS: Ciprofloxacin 400 MG/200 ML 400 MG/200 ML PIGGYBACK IV.SIG SCH (13:15)
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
[2018-01-04] MEDS: Sodium Bicarbonate 8.4% Inj 50 MEQ in Dextrose 5%/NaCl 0.45% Inj 950 ML IV.CONT SCH (19:01)
[2018-01-04] MEDS ORDERED: ChlorproMAZINE 25 MG Tablet PO ONE (22:27)
[2018-01-04 23:36] LABS: Creatinine,Urine Random 166 mg/dL (27-300)
[2018-01-05 01:28] LABS: Amphetamine Screen,Urine Neg (Neg); Barbiturate Screen,Urine Neg (Neg); Cannabinoid Screen,Urine Neg (Neg); Cocaine Screen,Urine Pos (Neg)
[2018-01-05 01:30] LABS: Opiate Screen,Urine Pos (Neg)
[2018-01-05] MEDS ORDERED: ChlorproMAZINE 25 MG Tablet PO ONE (04:33)
[2018-01-05] MEDS: ceFAZolin 1 GM Premix Inj 1 GM/50 ML FROZ.PIGGY IV.SIG SCH ×3 (05:25→22:50)
[2018-01-05] MEDS: Senna/Docusate Sodium 8.6/50 MG Tablet PO SCH ×2 (09:01→21:05)
[2018-01-05] MEDS: Heparin - SQ 10,000 UNITS/ML Vial SQ SCH ×2 (09:02→21:05)
--- NOTE | 2018-01-05 10:09 | P.PN ---
Subjective Interval history: The patient is in bed he appears chronically ill. With some shortness of breath however says he is improving. Still with nausea not able to eat no appetite. No vomiting. No fever overnight. Reports chills. Pain is fairly controlled Physical Exam Vital signs: Vital Signs 01/04/18 11:00 01/04/18 11:27 01/04/18 12:00 Temperature 98.3 F 98.3 F Pulse Rate 98 H 99 H 100 H Respiratory Rate 16 18 26 H Blood Pressure 83/50 L 100/71 Pulse Oximetry 94 L 94 L 87 L 01/04/18 12:01 01/04/18 13:00 01/04/18 13:01 Temperature Pulse Rate 98 H 102 H 102 H Respiratory Rate 19 16 16 Blood Pressure 102/72 103/77 Pulse Oximetry 97 97 96 01/04/18 14:00 01/04/18 15:00 01/04/18 15:29 Temperature Pulse Rate 103 H 107 H 105 H Respiratory Rate 20 27 H 28 H Blood Pressure 109/75 Pulse Oximetry 98 96 100 01/04/18 16:00 01/04/18 20:00 01/05/18 00:00 Temperature 97.8 F 98 F 98.3 F Pulse Rate 102 H 102 H 101 H Respiratory Rate 22 16 14 Blood Pressure 104/73 103/72 Pulse Oximetry 95 92 L 96 01/05/18 04:00 01/05/18 08:00 Temperature 98.3 F 98.8 F Pulse Rate 103 H 103 H Respiratory Rate 14 18 Blood Pressure 97/56 L 100/68 Pulse Oximetry 94 L 94 L Intake & Output 01/04/18 01/05/18 01/05/18 18:59 06:59 18:59 Intake Total 950 / 950 1272 / 1272 Output Total 400 / 400 Balance 550 / 550 1272 / 1272 Weight 90.4 kg Intake: IV 350 / 350 552 / 552 Sodium Bicarbonate 8.4% Inj 50 252 / 252 MEQ In D5W/1/2 NS Inj 950 ML @ 42 mls/hr IV.CONT .[id number] [facility] Rx#:[id number] Cipro 400 MG/200 ML Inj 400 mg 200 / 200 In 200 ml @ 200 mls/hr IV.SIG Q24H [facility] Rx#:[id number] Ancef 1 GM Premix Inj 1 gm In 50 / 50 100 / 100 50 ml @ 100 mls/hr IV.SIG Q8HR [facility] Rx#:[id number] Flagyl 500 MG Inj 100 ML @ 100 100 / 100 200 / 200 mls/hr IV.SIG Q8H [facility] Rx#: [id number] Oral 600 / 600 720 / 720 Output: Urine 400 / 400 Other: # Voids 4 Date of Last Bowel Movement 01/04/18 01/04/18 # Bowel Movements 2 Narrative: GENERAL: 37 yo M, well nourished well developed appears in nad. SKIN: Warm and dry. NECK: Supple, trachea midline. CARDIOVASCULAR: Regular rate and rhythm without murmurs, gallops, or rubs. RESPIRATORY: Breath sounds equal bilaterally. No accessory muscle use. GASTROINTESTINAL: Abdomen soft, non-tender, nondistended. MUSCULOSKELETAL: No cyanosis, or edema. BACK: Nontender without obvious deformity. No CVA tenderness. NEURO: alert and oriented. No focal deficits. Results - Labs CBC & Chem 7: 01/04/18 04:31 01/05/18 10:41 Laboratory Results - last 24 hr 01/04/18 01/04/18 01/04/18 18:45 23:00 23:00 Potassium 4.9 D Urine Osmolality 405 Ur Random Creatinine 166 Ur Random Sodium Less than 5 Urine Opiates Screen Ur Barbiturates Screen Ur Amphetamines Screen U Benzodiazepines Scrn Urine Cocaine Screen U Cannabinoids Screen 01/04/18 23:00 Potassium Urine Osmolality Ur Random Creatinine Ur Random Sodium Urine Opiates Screen Pos H Ur Barbiturates Screen Neg Ur Amphetamines Screen Neg U Benzodiazepines Scrn Pos H Urine Cocaine Screen Pos H U Cannabinoids Screen Neg Microbiology 01/02/18 13:17 Blood - Peripheral Aerobic Blood Culture - Preliminary No growth in 2 days 01/02/18 13:17 Blood - Peripheral Anaerobic Blood Culture - Final QNS - See aerobic report. 01/02/18 13:22 Blood - Peripheral Aerobic Blood Culture - Preliminary No growth in 2 days 01/02/18 13:22 Blood - Peripheral Anaerobic Blood Culture - Preliminary No growth in 2 days - Procedures none Assessment and Plan - Assessment (1) Abdominal pain Code(s): R10.9 - Unspecified abdominal pain Status: Acute (2) Acute cholecystitis Code(s): K81.0 - Acute cholecystitis Status: Acute (3) Elevated liver enzymes Code(s): R74.8 - Abnormal levels of other serum enzymes Status: Acute - Plan Cholecystitis - Per surgery and IR, this is chronic and that perc drain not needed. - Continue Abx therapy: Cefazolin, Ciprofloxacin and Metronidazole. 01/04: Followed by Vascular Surgery he has chronically thickened gallbladder wall and does not have acute cholecystitis, due to high risk non candidate for surgery. Abdominal pain, Elevated LFT from liver congestion - Hgb stable again. Lower concern for acute GIB. - LFT elevated likely result of hypoperfusion from low EF from heart. Acute kidney injury - result of poor effective circulating volume in setting of poor EF. worsening Creatinine level consult Nephrology specialist, appreciate recs. Cr is improving Cardiomyopathy with EF of 10% - reduced EF < 10% places patient at risk for sudden cardiac from arrhythmia. - keep K > 4 and Mg > 2 - Cardiology consulted and recommendations appreciated. Not a candidate for ICD. Can follow up outpatient with cardiology on discharge. - Patient developed hypotension likely from meds. Today, he is hemodynamically improved. Small fluid boluses or vasopressors as needed for hypotension. Reinitiate Lasix, coreg and lisinopril if tolerated consider restarting med one at a time. Not a candidate for Entresto secondary to hypotension and acute kidney injury. Discussed with case management, not a candidate for ICD/ LifeVest secondary to noncompliance. Patient had LifeVest for 3 months Psychiatry: Drug abuse - patient counselled on importance of stopping drug use. Patient verbalized understanding Code: FC dvt ppx with subcu heparin Code Status: Full code. Discussed Condition With: patient, nurse, family Discharge Planning: Pending improvement and clearance by consultants
[2018-01-05 11:45] LABS: Albumin 2.6 g/dL (3.4-5.0); Calcium 7.7 mg/dL (8.5-10.1); Carbon Dioxide 22.1 meq/L (21.0-32.0); Phosphorus 2.9 mg/dL (2.5-4.9); Potassium 4.4 meq/L (3.5-5.1)
--- NOTE | 2018-01-05 13:20 | P.PNNP ---
Subjective Interval history: Shortness of breath and nausea has improved today. Creatinine improved at 2.23. <Karin Zhu - Last Filed: 01/05/18 13:23> Physical Exam Vital signs: Vital Signs 01/04/18 14:00 01/04/18 15:00 01/04/18 15:29 Temperature Pulse Rate 103 H 107 H 105 H Respiratory Rate 20 27 H 28 H Blood Pressure 109/75 Pulse Oximetry 98 96 100 01/04/18 16:00 01/04/18 20:00 01/05/18 00:00 Temperature 97.8 F 98 F 98.3 F Pulse Rate 102 H 102 H 101 H Respiratory Rate 22 16 14 Blood Pressure 104/73 103/72 Pulse Oximetry 95 92 L 96 01/05/18 04:00 01/05/18 08:00 Temperature 98.3 F 98.8 F Pulse Rate 103 H 103 H Respiratory Rate 14 18 Blood Pressure 97/56 L 100/68 Pulse Oximetry 94 L 94 L Intake & Output 01/04/18 01/05/18 01/05/18 18:59 06:59 18:59 Intake Total 950 / 950 1272 / 1272 Output Total 400 / 400 Balance 550 / 550 1272 / 1272 Weight 90.4 kg Intake: IV 350 / 350 552 / 552 Sodium Bicarbonate 8.4% Inj 50 252 / 252 MEQ In D5W/1/2 NS Inj 950 ML @ 42 mls/hr IV.CONT .[id number] [facility] Rx#:[id number] Cipro 400 MG/200 ML Inj 400 mg 200 / 200 In 200 ml @ 200 mls/hr IV.SIG Q24H [facility] Rx#:[id number] Ancef 1 GM Premix Inj 1 gm In 50 / 50 100 / 100 50 ml @ 100 mls/hr IV.SIG Q8HR [facility] Rx#:[id number] Flagyl 500 MG Inj 100 ML @ 100 100 / 100 200 / 200 mls/hr IV.SIG Q8H [facility] Rx#: [id number] Oral 600 / 600 720 / 720 Output: Urine 400 / 400 Other: # Voids 4 Date of Last Bowel Movement 01/04/18 01/04/18 # Bowel Movements 2 Narrative: GENERAL: Alert and oriented. SKIN: Warm and dry. NECK: Supple, trachea midline. CARDIOVASCULAR: Regular rate and rhythm without murmurs, gallops, or rubs. RESPIRATORY: Breath sounds equal bilaterally. No accessory muscle use. GASTROINTESTINAL: Abdomen soft, non-tender, nondistended. MUSCULOSKELETAL: No cyanosis, or edema. BACK: Nontender without obvious deformity. No CVA tenderness. NEURO: alert and oriented. No focal deficits. <Karin Zhu - Last Filed: 01/05/18 13:23> Vital signs: Vital Signs 01/11/18 21:15 01/12/18 00:00 01/12/18 04:00 Temperature 97.2 F L 97.6 F Pulse Rate 104 H 98 H Respiratory Rate 18 18 18 Blood Pressure 104/73 102/70 Pulse Oximetry 95 96 01/12/18 08:00 01/12/18 09:23 01/12/18 12:00 Temperature 97.4 F L 97.4 F L Pulse Rate 101 H 107 H Respiratory Rate 19 18 17 Blood Pressure 109/68 97/69 L Pulse Oximetry 96 93 L 01/12/18 13:40 01/12/18 16:00 01/12/18 16:54 Temperature 97.9 F Pulse Rate 99 H 110 H Respiratory Rate 18 18 Blood Pressure 100/67 Pulse Oximetry 97 01/12/18 17:46 Temperature Pulse Rate Respiratory Rate 18 Blood Pressure Pulse Oximetry Intake & Output 01/12/18 01/12/18 01/13/18 06:59 18:59 06:59 Intake Total 1050 / 1050 1400 / 1400 Balance 1050 / 1050 1400 / 1400 Weight 91.4 kg Intake: IV 150 / 150 200 / 200 Ancef 1 GM Premix Inj 1 gm In 50 / 50 100 / 100 50 ml @ 100 mls/hr IV.SIG Q8HR [facility] Rx#:[id number] Flagyl 500 MG Inj 100 ML @ 100 100 / 100 100 / 100 mls/hr IV.SIG Q8H [facility] Rx#: [id number] Oral 900 / 900 1200 / 1200 Other: # Voids 5 4 Date of Last Bowel Movement 01/11/18 <Preet Reynoso - Last Filed: 01/12/18 20:10> Assessment and Plan - Assessment (1) Acute kidney injury Code(s): N17.9 - Acute kidney failure, unspecified Status: Acute Plan: Acute kidney injury with creatinine of 2.87,potassium level of 5.7 on day of consult. Creatinine noted to be 1.0 on April 20, 2017. Acute kidney injury with FeNa of less than 1 % suggestive of prerenal from nausea/vomiting and decrease cardiac output. CT of abdomen with kidneys normal in size and shape. No evidence of mass or hydronephrosis. Creatinine 2.87 ->2.23 , Non oliguric Avoid nephrotoxin agents as possible Continue gently hydration as tolerated, on D5 1/2 NS with sodium bicarbonate, continue today if tolerating PO well recommend to discontinue tomorrow. Continue to hold JOAQUIN Hyperkalemia resolved Maintain strict I+O Will follow urinary output and BMP <Karin Zhu - Last Filed: 01/05/18 13:23> - Assessment (1) Acute kidney injury Code(s): N17.9 - Acute kidney failure, unspecified Status: Acute Plan: Patient seen and examined, agree with above. Patient has BENOIT, possibly related pre renal or due to Cardio-renal. Has low FeNa, continue gentle hydration, watch for fluid overload. Follow the urine out put and BMP. (2) Acute cholecystitis Code(s): K81.0 - Acute cholecystitis Status: Acute (3) CHF (congestive heart failure) Code(s): I50.9 - Heart failure, unspecified Status: Acute <Preet Reynoso - Last Filed: 01/12/18 20:10>
[2018-01-05] MEDS: Ciprofloxacin 400 MG/200 ML 400 MG/200 ML PIGGYBACK IV.SIG SCH (13:52)
[2018-01-05] MEDS: Morphine Sulfate Inj 2 MG/ML Vial IV.PUSH PRN (19:30)
[2018-01-05] MEDS: Sodium Bicarbonate 8.4% Inj 50 MEQ in Dextrose 5%/NaCl 0.45% Inj 950 ML IV.CONT SCH (21:04)
[2018-01-06] MEDS: Morphine Sulfate Inj 2 MG/ML Vial IV.PUSH PRN ×4 (01:49→20:32)
[2018-01-06 04:55] LABS: Baso # (Auto) 0.1 th/mm3 (0.0-0.2); Baso % (Auto) 0.8 % (0.0-2.0); Eos % (Auto) 0.3 % (0.0-4.0); Hematocrit 45.8 % (39.0-51.0); Hemoglobin 15.3 gm/dL (13.0-17.0); Lymph # (Auto) 1.1 th/mm3 (1.0-4.8); Lymph % (Auto) 13.2 % (9.0-44.0); Mean Corpuscular HGB Conc 33.4 % (32.0-36.0); Mean Corpuscular Hemoglobin 32.1 pg (27.0-34.0); Mean Corpuscular Volume 96.2 fL (80.0-100.0); Mean Platelet Volume 9.4 fL (7.0-11.0); Mono % (Auto) 11.9 % (0.0-8.0); Neut # (Auto) 6.3 th/mm3 (1.8-7.7); Neut % (Auto) 73.8 % (16.0-70.0); Platelet Count 176 th/mm3 (150-450); Red Blood Count 4.76 mil/mm3 (4.50-5.90); Red Cell Distribution Width 15.9 % (11.6-17.2); White Blood Count 8.6 th/mm3 (4.0-11.0)
[2018-01-06 05:16] LABS: Calcium 7.9 mg/dL (8.5-10.1); Carbon Dioxide 23.9 meq/L (21.0-32.0); Potassium 4.1 meq/L (3.5-5.1)
[2018-01-06] MEDS: ceFAZolin 1 GM Premix Inj 1 GM/50 ML FROZ.PIGGY IV.SIG SCH ×3 (06:00→21:24)
[2018-01-06] MEDS: Sodium Bicarbonate 8.4% Inj 50 MEQ in Dextrose 5%/NaCl 0.45% Inj 950 ML IV.CONT SCH ×2 (06:05→23:47)
[2018-01-06] MEDS: Heparin - SQ 10,000 UNITS/ML Vial SQ SCH ×2 (08:32→20:32)
[2018-01-06] MEDS: Senna/Docusate Sodium 8.6/50 MG Tablet PO SCH ×2 (08:32→20:31)
--- NOTE | 2018-01-06 10:07 | P.PN ---
Subjective Interval history: The patient is in bed he appears in acute distress his says he has he comes in some shortness of breath however he is saturating well on room air. No chest pain. Feels very tired. He was nauseated in the morning and says he is not able to eat. No cough no fever or chills. No other complaints. Physical Exam Vital signs: Vital Signs 01/05/18 12:00 01/05/18 16:00 01/05/18 20:00 Temperature 98 F 97.8 F 98.8 F Pulse Rate 106 H 106 H 107 H Respiratory Rate 18 18 16 Blood Pressure 96/61 L 93/64 L 108/75 Pulse Oximetry 93 L 94 L 92 L 01/05/18 21:02 01/05/18 22:52 01/06/18 01:42 Temperature 98.7 F Pulse Rate 112 H Respiratory Rate 18 18 Blood Pressure 114/78 104/75 Pulse Oximetry 95 01/06/18 01:51 01/06/18 04:00 01/06/18 08:00 Temperature 98.8 F 98.5 F Pulse Rate 113 H 117 H Respiratory Rate 19 15 17 Blood Pressure 113/75 107/75 Pulse Oximetry 94 L 95 Intake & Output 01/05/18 01/06/18 01/06/18 18:59 06:59 18:59 Intake Total 675 / 675 1923 / 1923 Output Total 856 / 856 300 / 300 Balance -181 / -181 1623 / 1623 Weight 90.5 kg Intake: IV 675 / 675 723 / 723 Sodium Bicarbonate 8.4% Inj 50 325 / 325 423 / 423 MEQ In D5W/1/2 NS Inj 950 ML @ 42 mls/hr IV.CONT .[id number] [facility] Rx#:[id number] Cipro 400 MG/200 ML Inj 400 mg 200 / 200 In 200 ml @ 200 mls/hr IV.SIG Q24H [facility] Rx#:[id number] Ancef 1 GM Premix Inj 1 gm In 50 / 50 100 / 100 50 ml @ 100 mls/hr IV.SIG Q8HR [facility] Rx#:[id number] Flagyl 500 MG Inj 100 ML @ 100 100 / 100 200 / 200 mls/hr IV.SIG Q8H [facility] Rx#: [id number] Oral 1200 / 1200 Output: Urine 856 / 856 300 / 300 Other: Date of Last Bowel Movement 01/04/18 Narrative: GENERAL: 37 yo M, well nourished well developed appears in nad. SKIN: Warm and dry. NECK: Supple, trachea midline. CARDIOVASCULAR: Regular rate and rhythm without murmurs, gallops, or rubs. RESPIRATORY: Breath sounds equal bilaterally. No accessory muscle use. GASTROINTESTINAL: Abdomen soft, non-tender, nondistended. MUSCULOSKELETAL: No cyanosis, or edema. BACK: Nontender without obvious deformity. No CVA tenderness. NEURO: alert and oriented. No focal deficits. Results - Labs CBC & Chem 7: 01/06/18 04:36 01/06/18 04:36 Laboratory Results - last 24 hr 01/05/18 01/06/18 01/06/18 10:41 04:36 04:36 WBC 8.6 RBC 4.76 Hgb 15.3 Hct 45.8 MCV 96.2 MCH 32.1 MCHC 33.4 RDW 15.9 Plt Count 176 MPV 9.4 Neut % (Auto) 73.8 H Lymph % (Auto) 13.2 [place] % (Auto) 11.9 H Eos % (Auto) 0.3 Baso % (Auto) 0.8 Neut # (Auto) 6.3 Lymph # (Auto) 1.1 [place] # (Auto) 1.0 H Eos # (Auto) 0.0 Baso # (Auto) 0.1 WBC Differential . Differential Comment Auto diff final Sodium 131 L 131 L Potassium 4.4 4.1 Chloride 99 98 Carbon Dioxide 22.1 23.9 Anion Gap 10 9 BUN 33 H 27 H Creatinine 2.23 H 1.92 H Estimated GFR 33 L 39 L Random Glucose 102 120 H Calcium 7.7 L 7.9 L Phosphorus 2.9 Albumin 2.6 L D Microbiology 01/02/18 13:17 Blood - Peripheral Aerobic Blood Culture - Preliminary No growth in 3 days 01/02/18 13:17 Blood - Peripheral Anaerobic Blood Culture - Final QNS - See aerobic report. 01/02/18 13:22 Blood - Peripheral Aerobic Blood Culture - Preliminary No growth in 3 days 01/02/18 13:22 Blood - Peripheral Anaerobic Blood Culture - Preliminary No growth in 3 days - Procedures none Assessment and Plan - Assessment (1) Abdominal pain Code(s): R10.9 - Unspecified abdominal pain Status: Acute (2) Acute cholecystitis Code(s): K81.0 - Acute cholecystitis Status: Acute (3) Elevated liver enzymes Code(s): R74.8 - Abnormal levels of other serum enzymes Status: Acute - Plan Cholecystitis - Per surgery and IR, this is chronic and that perc drain not needed. - Continue Abx therapy: Cefazolin, Ciprofloxacin and Metronidazole. 01/04: Followed by Vascular Surgery he has chronically thickened gallbladder wall and does not have acute cholecystitis, due to high risk non candidate for surgery. Abdominal pain, Elevated LFT from liver congestion - Hgb stable again. Lower concern for acute GIB. - LFT elevated likely result of hypoperfusion from low EF from heart. Acute kidney injury - result of poor effective circulating volume in setting of poor EF. worsening Creatinine level consult Nephrology specialist, appreciate recs. Cr is improving Cardiomyopathy with EF of 10% - reduced EF < 10% places patient at risk for sudden cardiac from arrhythmia. - keep K > 4 and Mg > 2 - Cardiology consulted and recommendations appreciated. Not a candidate for ICD. Can follow up outpatient with cardiology on discharge. - Patient developed hypotension likely from meds. Today, he is hemodynamically improved. Small fluid boluses or vasopressors as needed for hypotension. Reinitiate Lasix, coreg and lisinopril if tolerated consider restarting med one at a time. Not a candidate for Entresto secondary to hypotension and acute kidney injury. Discussed with case management, not a candidate for ICD/ LifeVest secondary to noncompliance. Patient had LifeVest for 3 months Psychiatry: Drug abuse - patient counselled on importance of stopping drug use. Patient verbalized understanding Hiccups. One-time Reglan IV Code: FC dvt ppx with subcu heparin Code Status: Full code. Discussed Condition With: patient, nurse, family Discharge Planning: Pending improvement and clearance by consultants
[2018-01-06] MEDS: Ciprofloxacin 400 MG/200 ML 400 MG/200 ML PIGGYBACK IV.SIG SCH (14:29)
[2018-01-06] MEDS ORDERED: Metoclopramide Inj 10 MG in Sodium Chlor 0.9% Inj 50 ML IV.SIG ONE (17:00)
--- NOTE | 2018-01-06 20:36 | P.PNNP ---
Subjective Interval history: Patients een in the afternoon, alert, no SOB, has nausea. Physical Exam Vital signs: Vital Signs 01/05/18 21:02 01/05/18 22:52 01/06/18 01:42 Temperature 98.7 F Pulse Rate 112 H Respiratory Rate 18 18 Blood Pressure 114/78 104/75 Pulse Oximetry 95 01/06/18 01:51 01/06/18 04:00 01/06/18 08:00 Temperature 98.8 F 98.5 F Pulse Rate 113 H 117 H Respiratory Rate 19 15 17 Blood Pressure 113/75 107/75 Pulse Oximetry 94 L 95 01/06/18 12:00 01/06/18 16:00 Temperature 99.4 F 98.2 F Pulse Rate 109 H 110 H Respiratory Rate 17 17 Blood Pressure 105/75 101/73 Pulse Oximetry 96 90 L Intake & Output 01/06/18 01/06/18 01/07/18 06:59 18:59 06:59 Intake Total 1923 / 1923 1902 / 1902 476 / 476 Output Total 300 / 300 200 / 200 Balance 1623 / 1623 1702 / 1702 476 / 476 Weight 90.5 kg Intake: IV 723 / 723 402 / 402 476 / 476 Sodium Bicarbonate 8.4% Inj 50 423 / 423 476 / 476 MEQ In D5W/1/2 NS Inj 950 ML @ 42 mls/hr IV.CONT .[id number] [facility] Rx#:[id number] Cipro 400 MG/200 ML Inj 400 mg 200 / 200 In 200 ml @ 200 mls/hr IV.SIG Q24H [facility] Rx#:[id number] Reglan Inj 10 MG In NS Inj 50 52 / 52 ML @ 104 mls/hr IV.SIG ONCE ONE Rx#:[id number] Ancef 1 GM Premix Inj 1 gm In 100 / 100 50 / 50 50 ml @ 100 mls/hr IV.SIG Q8HR [facility] Rx#:[id number] Flagyl 500 MG Inj 100 ML @ 100 200 / 200 100 / 100 mls/hr IV.SIG Q8H [facility] Rx#: [id number] Oral 1200 / 1200 1500 / 1500 Output: Urine 300 / 300 200 / 200 Other: Date of Last Bowel Movement 01/04/18 01/04/18 # Bowel Movements 1 Narrative: GENERAL: 37 yo M, well nourished well developed appears in nad. SKIN: Warm and dry. NECK: Supple, trachea midline. CARDIOVASCULAR: Regular rate and rhythm without murmurs, gallops, or rubs. RESPIRATORY: Breath sounds equal bilaterally. No accessory muscle use. GASTROINTESTINAL: Abdomen soft, non-tender, nondistended. MUSCULOSKELETAL: No cyanosis, or edema. BACK: Nontender without obvious deformity. No CVA tenderness. NEURO: alert and oriented. No focal deficits. Assessment and Plan - Assessment (1) Acute kidney injury Code(s): N17.9 - Acute kidney failure, unspecified Status: Acute Plan: Acute kidney injury with increase in the creatinine of 2.87,potassium level of 5.7 on day of consult. Creatinine noted to be 1.0 on April 20, 2017. Acute kidney injury with FeNa of less than 1 % suggestive of prerenal from nausea/vomiting and decrease cardiac output. CT of abdomen with kidneys normal in size and shape. No evidence of mass or hydronephrosis. Creatinine is improving. Avoid nephrotoxin agents as possible Continue gently hydration as tolerated, on D5 1/2 NS with sodium bicarbonate, continue today if tolerating PO well recommend to discontinue tomorrow. Continue to hold JOAQUIN Hyperkalemia resolved Maintain strict I+O Will follow urinary output and BMP. Avoid Nephrotoxins.
[2018-01-07] MEDS: Morphine Sulfate Inj 2 MG/ML Vial IV.PUSH PRN ×4 (01:18→22:02)
[2018-01-07] MEDS: ceFAZolin 1 GM Premix Inj 1 GM/50 ML FROZ.PIGGY IV.SIG SCH ×3 (06:13→23:02)
[2018-01-07] MEDS: Heparin - SQ 10,000 UNITS/ML Vial SQ SCH ×2 (10:28→22:02)
[2018-01-07] MEDS: Senna/Docusate Sodium 8.6/50 MG Tablet PO SCH ×2 (10:30→22:01)
--- NOTE | 2018-01-07 11:45 | P.PNNP ---
Subjective Interval history: Patient is alert, still has nausea and vomiting off and on. Physical Exam Vital signs: Vital Signs 01/06/18 12:00 01/06/18 16:00 01/06/18 20:00 Temperature 99.4 F 98.2 F 98.0 F Pulse Rate 109 H 110 H 109 H Respiratory Rate 17 17 18 Blood Pressure 105/75 101/73 92/68 L Pulse Oximetry 96 90 L 92 L 01/07/18 00:00 01/07/18 00:02 01/07/18 05:04 Temperature 98.7 F 97.6 F Pulse Rate 122 H 111 H 118 H Respiratory Rate 18 18 Blood Pressure 107/71 105/78 Pulse Oximetry 95 95 01/07/18 06:33 01/07/18 08:00 Temperature 98.7 F Pulse Rate 116 H 114 H Respiratory Rate 20 Blood Pressure 112/74 Pulse Oximetry 94 L Intake & Output 01/06/18 01/07/18 01/07/18 18:59 06:59 18:59 Intake Total 1902 / 1902 1196 / 1196 Output Total 200 / 200 Balance 1702 / 1702 1196 / 1196 Weight 92.6 kg Intake: IV 402 / 402 776 / 776 Sodium Bicarbonate 8.4% Inj 50 476 / 476 MEQ In D5W/1/2 NS Inj 950 ML @ 42 mls/hr IV.CONT .[id number] [facility] Rx#:[id number] Cipro 400 MG/200 ML Inj 400 mg 200 / 200 In 200 ml @ 200 mls/hr IV.SIG Q24H [facility] Rx#:[id number] Reglan Inj 10 MG In NS Inj 50 52 / 52 ML @ 104 mls/hr IV.SIG ONCE ONE Rx#:[id number] Ancef 1 GM Premix Inj 1 gm In 50 / 50 100 / 100 50 ml @ 100 mls/hr IV.SIG Q8HR [facility] Rx#:[id number] Flagyl 500 MG Inj 100 ML @ 100 100 / 100 200 / 200 mls/hr IV.SIG Q8H [facility] Rx#: [id number] Oral 1500 / 1500 420 / 420 Output: Urine 200 / 200 Other: # Voids 2 Date of Last Bowel Movement 01/04/18 01/04/18 # Bowel Movements 1 Narrative: GENERAL: 37 yo M, well nourished well developed appears in nad. SKIN: Warm and dry. NECK: Supple, trachea midline. CARDIOVASCULAR: Regular rate and rhythm without murmurs, gallops, or rubs. RESPIRATORY: Breath sounds equal bilaterally. No accessory muscle use. GASTROINTESTINAL: Abdomen soft, non-tender, nondistended. MUSCULOSKELETAL: No cyanosis, or edema. BACK: Nontender without obvious deformity. No CVA tenderness. NEURO: alert and oriented. No focal deficits. Assessment and Plan - Assessment (1) Acute kidney injury Code(s): N17.9 - Acute kidney failure, unspecified Status: Acute Plan: Patient still has nausea and vomiting, Develop BENOIT, possibly pre renal. Continue IVF with NaHco3. Creatinine continue to improve, now 1.9.
[2018-01-07] MEDS: Sodium Bicarbonate 8.4% Inj 50 MEQ in Dextrose 5%/NaCl 0.45% Inj 950 ML IV.CONT SCH ×3 (13:35→18:29)
--- NOTE | 2018-01-07 15:50 | P.PN ---
Subjective Interval history: The patient is in bed says he has some nausea did not vomit. He is still with hiccups says Reglan helped a little bit. Feels very tired and he is short of breath especially with ambulation. Physical Exam Vital signs: Vital Signs 01/06/18 16:00 01/06/18 20:00 01/07/18 00:00 Temperature 98.2 F 98.0 F 98.7 F Pulse Rate 110 H 109 H 122 H Respiratory Rate 17 18 18 Blood Pressure 101/73 92/68 L 107/71 Pulse Oximetry 90 L 92 L 95 01/07/18 00:02 01/07/18 05:04 01/07/18 06:33 Temperature 97.6 F Pulse Rate 111 H 118 H 116 H Respiratory Rate 18 Blood Pressure 105/78 Pulse Oximetry 95 01/07/18 08:00 01/07/18 12:00 Temperature 98.7 F 98.2 F Pulse Rate 114 H 115 H Respiratory Rate 20 17 Blood Pressure 112/74 118/78 Pulse Oximetry 94 L 95 Intake & Output 01/06/18 01/07/18 01/07/18 18:59 06:59 18:59 Intake Total 1902 / 1902 1196 / 1196 624 / 624 Output Total 200 / 200 Balance 1702 / 1702 1196 / 1196 624 / 624 Weight 92.6 kg Intake: IV 402 / 402 776 / 776 624 / 624 Sodium Bicarbonate 8.4% Inj 50 476 / 476 524 / 524 MEQ In D5W/1/2 NS Inj 950 ML @ 42 mls/hr IV.CONT .[id number] [facility] Rx#:[id number] Cipro 400 MG/200 ML Inj 400 mg 200 / 200 In 200 ml @ 200 mls/hr IV.SIG Q24H [facility] Rx#:[id number] Reglan Inj 10 MG In NS Inj 50 52 / 52 ML @ 104 mls/hr IV.SIG ONCE ONE Rx#:[id number] Ancef 1 GM Premix Inj 1 gm In 50 / 50 100 / 100 50 ml @ 100 mls/hr IV.SIG Q8HR [facility] Rx#:[id number] Flagyl 500 MG Inj 100 ML @ 100 100 / 100 200 / 200 100 / 100 mls/hr IV.SIG Q8H [facility] Rx#: [id number] Oral 1500 / 1500 420 / 420 Output: Urine 200 / 200 Other: # Voids 2 Date of Last Bowel Movement 01/04/18 01/04/18 01/07/18 # Bowel Movements 1 Narrative: GENERAL: 37 yo M, well nourished well developed appears in nad. + Hiccups. SKIN: Multiple tatoos. Warm and dry. NECK: Supple, trachea midline. CARDIOVASCULAR: Regular rate and rhythm without murmurs, gallops, or rubs. RESPIRATORY: Breath sounds equal bilaterally. No accessory muscle use. GASTROINTESTINAL: Abdomen soft, non-tender, nondistended. MUSCULOSKELETAL: No cyanosis, or edema. BACK: Nontender without obvious deformity. No CVA tenderness. NEURO: alert and oriented. No focal deficits. Results - Labs CBC & Chem 7: 01/06/18 04:36 01/06/18 04:36 Microbiology 01/02/18 13:17 Blood - Peripheral Aerobic Blood Culture - Final No growth in 5 days 01/02/18 13:17 Blood - Peripheral Anaerobic Blood Culture - Final QNS - See aerobic report. 01/02/18 13:22 Blood - Peripheral Aerobic Blood Culture - Final No growth in 5 days 01/02/18 13:22 Blood - Peripheral Anaerobic Blood Culture - Final No growth in 5 days - Procedures none Assessment and Plan - Assessment (1) Abdominal pain Code(s): R10.9 - Unspecified abdominal pain Status: Acute (2) Acute cholecystitis Code(s): K81.0 - Acute cholecystitis Status: Acute (3) Elevated liver enzymes Code(s): R74.8 - Abnormal levels of other serum enzymes Status: Acute - Plan Cholecystitis - Per surgery and IR, this is chronic and that perc drain not needed. - Continue Abx therapy: Cefazolin, Ciprofloxacin and Metronidazole. 01/04: Followed by Vascular Surgery he has chronically thickened gallbladder wall and does not have acute cholecystitis, due to high risk non candidate for surgery. Abdominal pain, Elevated LFT from liver congestion - Hgb stable again. Lower concern for acute GIB. - LFT elevated likely result of hypoperfusion from low EF from heart. Acute kidney injury - result of poor effective circulating volume in setting of poor EF. worsening Creatinine level consult Nephrology specialist, appreciate recs. Cr is improving Cardiomyopathy with EF of 10% - reduced EF < 10% places patient at risk for sudden cardiac from arrhythmia. - keep K > 4 and Mg > 2 - Cardiology consulted and recommendations appreciated. Not a candidate for ICD. Can follow up outpatient with cardiology on discharge. - Patient developed hypotension likely from meds. Today, he is hemodynamically improved. Small fluid boluses or vasopressors as needed for hypotension. Reinitiate Lasix, coreg and lisinopril if tolerated consider restarting med one at a time. Not a candidate for Entresto secondary to hypotension and acute kidney injury. Discussed with case management, not a candidate for ICD/ LifeVest secondary to noncompliance. Patient had LifeVest for 3 months Psychiatry: Drug abuse - patient counselled on importance of stopping drug use. Patient verbalized understanding Hiccups. One-time Reglan IV. Add PRN reglan Code: FC dvt ppx with subcu heparin Code Status: Full code. Discussed Condition With: patient, nurse, family Discharge Planning: Pending improvement and clearance by consultants
[2018-01-07] MEDS: Ciprofloxacin 400 MG/200 ML 400 MG/200 ML PIGGYBACK IV.SIG SCH (16:46)
[2018-01-07] MEDS: Metoclopramide 10 MG Tablet PO PRN (23:02)
[2018-01-08] MEDS: Morphine Sulfate Inj 2 MG/ML Vial IV.PUSH PRN ×4 (03:41→21:54)
[2018-01-08] MEDS: ceFAZolin 1 GM Premix Inj 1 GM/50 ML FROZ.PIGGY IV.SIG SCH ×3 (06:19→22:55)
[2018-01-08] MEDS: Metoclopramide 10 MG Tablet PO PRN (07:55)
[2018-01-08] MEDS: Senna/Docusate Sodium 8.6/50 MG Tablet PO SCH ×3 (07:55→21:46)
[2018-01-08] MEDS: Heparin - SQ 10,000 UNITS/ML Vial SQ SCH ×3 (07:55→21:46)
--- NOTE | 2018-01-08 09:17 | P.PN ---
Subjective Interval history: In bed with nausea intermittent. Not eating much. Less hiccups. No fever or chills. Satting well on room air however is mostly in bed Physical Exam Vital signs: Vital Signs 01/07/18 12:00 01/07/18 16:00 01/07/18 20:00 Temperature 98.2 F 97.7 F 98.1 F Pulse Rate 115 H 113 H 113 H Respiratory Rate 17 18 20 Blood Pressure 118/78 105/69 111/61 Pulse Oximetry 95 98 93 L 01/08/18 00:00 01/08/18 03:54 01/08/18 04:00 Temperature 97.6 F 97.3 F L Pulse Rate 109 H 111 H 107 H Respiratory Rate 20 18 Blood Pressure 114/66 111/73 Pulse Oximetry 94 L 97 01/08/18 08:00 Temperature 99.4 F Pulse Rate 112 H Respiratory Rate 16 Blood Pressure 98/74 L Pulse Oximetry 95 Intake & Output 01/07/18 01/08/18 01/08/18 18:59 06:59 18:59 Intake Total 4674 / 4674 540 / 540 Balance 4674 / 4674 540 / 540 Weight 96.8 kg Intake: IV 2874 / 2874 300 / 300 Sodium Bicarbonate 8.4% Inj 50 2524 / 2524 MEQ In D5W/1/2 NS Inj 950 ML @ 42 mls/hr IV.CONT .[id number] [facility] Rx#:[id number] Cipro 400 MG/200 ML Inj 400 mg 200 / 200 In 200 ml @ 200 mls/hr IV.SIG Q24H [facility] Rx#:[id number] Ancef 1 GM Premix Inj 1 gm In 50 / 50 100 / 100 50 ml @ 100 mls/hr IV.SIG Q8HR [facility] Rx#:[id number] Flagyl 500 MG Inj 100 ML @ 100 100 / 100 200 / 200 mls/hr IV.SIG Q8H [facility] Rx#: [id number] Oral 1800 / 1800 240 / 240 Other: # Voids 3 2 Date of Last Bowel Movement 01/07/18 01/07/18 01/07/18 # Bowel Movements 1 Narrative: GENERAL: 37 yo M, well nourished well developed appears in nad. + Hiccups. SKIN: Multiple tatoos. Warm and dry. NECK: Supple, trachea midline. CARDIOVASCULAR: Regular rate and rhythm without murmurs, gallops, or rubs. RESPIRATORY: Breath sounds equal bilaterally. No accessory muscle use. GASTROINTESTINAL: Abdomen soft, non-tender, nondistended. MUSCULOSKELETAL: No cyanosis, or edema. BACK: Nontender without obvious deformity. No CVA tenderness. NEURO: alert and oriented. No focal deficits. Results - Labs CBC & Chem 7: 01/06/18 04:36 01/06/18 04:36 Microbiology 01/02/18 13:17 Blood - Peripheral Aerobic Blood Culture - Final No growth in 5 days 01/02/18 13:17 Blood - Peripheral Anaerobic Blood Culture - Final QNS - See aerobic report. 01/02/18 13:22 Blood - Peripheral Aerobic Blood Culture - Final No growth in 5 days 01/02/18 13:22 Blood - Peripheral Anaerobic Blood Culture - Final No growth in 5 days - Procedures none Assessment and Plan - Assessment (1) Abdominal pain Code(s): R10.9 - Unspecified abdominal pain Status: Acute (2) Acute cholecystitis Code(s): K81.0 - Acute cholecystitis Status: Acute (3) Elevated liver enzymes Code(s): R74.8 - Abnormal levels of other serum enzymes Status: Acute - Plan Cholecystitis - Per surgery and IR, this is chronic and that perc drain not needed. - Continue Abx therapy: Cefazolin, Ciprofloxacin and Metronidazole. 01/04: Followed by Vascular Surgery he has chronically thickened gallbladder wall and does not have acute cholecystitis, due to high risk non candidate for surgery. Abdominal pain, Elevated LFT from liver congestion - Hgb stable again. Lower concern for acute GIB. - LFT elevated likely result of hypoperfusion from low EF from heart. Acute kidney injury - result of poor effective circulating volume in setting of poor EF. Noted with worsening Creatinine level consult Nephrology specialist, appreciate recs. Cr is improving On sodium bicarb infusion. Monitor closely kidney function and clinical status as patient with chf Avoid nephrotoxic agents. Cardiomyopathy with EF of 10% - reduced EF < 10% places patient at risk for sudden cardiac from arrhythmia. - keep K > 4 and Mg > 2 - Cardiology consulted and recommendations appreciated. Not a candidate for ICD. Can follow up outpatient with cardiology on discharge. - Patient developed hypotension likely from meds. Today, he is hemodynamically improved. Small fluid boluses or vasopressors as needed for hypotension. Reinitiate Lasix, coreg and lisinopril if tolerated consider restarting med one at a time. Not a candidate for Entresto secondary to hypotension and acute kidney injury. Discussed with case management, not a candidate for ICD/ LifeVest secondary to noncompliance. Patient had LifeVest for 3 months Psychiatry: Drug abuse - patient counselled on importance of stopping drug use. Patient verbalized understanding Hiccups. One-time Reglan IV. Add PRN renal dose reglan Code: FC dvt ppx with subcu heparin Code Status: Full code. Discussed Condition With: patient, nurse Discharge Planning: Pending improvement and clearance by consultants
--- NOTE | 2018-01-08 12:47 | P.PNNP ---
Subjective Interval history: Patient with a history of congestive heart failure history of cardiomyopathy EF 20% has renal failure, he was hydrated now complaining of holding fluids from the waist down up to the knees in the thigh area Physical Exam Vital signs: Vital Signs 01/07/18 16:00 01/07/18 20:00 01/08/18 00:00 Temperature 97.7 F 98.1 F 97.6 F Pulse Rate 113 H 113 H 109 H Respiratory Rate 18 20 20 Blood Pressure 105/69 111/61 114/66 Pulse Oximetry 98 93 L 94 L 01/08/18 03:54 01/08/18 04:00 01/08/18 08:00 Temperature 97.3 F L 99.4 F Pulse Rate 111 H 107 H 112 H Respiratory Rate 18 16 Blood Pressure 111/73 98/74 L Pulse Oximetry 97 95 Intake & Output 01/07/18 01/08/18 01/08/18 18:59 06:59 18:59 Intake Total 4674 / 4674 540 / 540 Balance 4674 / 4674 540 / 540 Weight 96.8 kg Intake: IV 2874 / 2874 300 / 300 Sodium Bicarbonate 8.4% Inj 50 2524 / 2524 MEQ In D5W/1/2 NS Inj 950 ML @ 42 mls/hr IV.CONT .[id number] [facility] Rx#:[id number] Cipro 400 MG/200 ML Inj 400 mg 200 / 200 In 200 ml @ 200 mls/hr IV.SIG Q24H [facility] Rx#:[id number] Ancef 1 GM Premix Inj 1 gm In 50 / 50 100 / 100 50 ml @ 100 mls/hr IV.SIG Q8HR [facility] Rx#:[id number] Flagyl 500 MG Inj 100 ML @ 100 100 / 100 200 / 200 mls/hr IV.SIG Q8H [facility] Rx#: [id number] Oral 1800 / 1800 240 / 240 Other: # Voids 3 2 Date of Last Bowel Movement 01/07/18 01/07/18 01/07/18 # Bowel Movements 1 Narrative: GENERAL: 37 yo M, well nourished well developed appears in nad. + Hiccups. SKIN: Multiple tatoos. Warm and dry. NECK: Supple, trachea midline. CARDIOVASCULAR: S1 and S2 plus S3 gallop. RESPIRATORY: Breath sounds Rales at bases. GASTROINTESTINAL: Abdomen soft, non-tender, nondistended. MUSCULOSKELETAL: 2+ edema at the thighs. BACK: Nontender without obvious deformity. No CVA tenderness. NEURO: alert and oriented. No focal deficits. Assessment and Plan - Assessment (1) Acute kidney injury Code(s): N17.9 - Acute kidney failure, unspecified Status: Acute Plan: Patient has edema, chest X ray will be ordered, Lasix 40 mg IV push Discontinue IV fluids Peripheral edema due to congestive heart failure and cardiomyopathy Resume Lasix Creatinine yesterday 1.9.
[2018-01-08] MEDS: Ciprofloxacin 400 MG/200 ML 400 MG/200 ML PIGGYBACK IV.SIG SCH (14:57)
--- NOTE | 2018-01-08 15:26 | XR ---
EXAM DATE: 01/08/2018 3:19 PM EST AGE/SEX: 37 years / Male INDICATIONS: Shortness of breath. Chest pain. CLINICAL DATA: This is the patient's subsequent encounter. Patient reports that signs and symptoms h ave been present for 1 week and indicates a pain score of 1/10. MEDICAL/SURGICAL HISTORY: . Congestive heart failure. Acute renal failure. None. COMPARISON: [facility], [facility] PULMONARY W CONTRAST W 3D, 12/23/2017. . FINDINGS: Cardiac silhouette is significantly enlarged with indistinct central pulmonary vascularity. No signif icant new focal pleural or parenchymal opacities. Bony thorax is intact. CONCLUSION: 1. Cardiomegaly with slight positive fluid balance. Electronically signed by: Kevyn Henry MD 01/08/2018 3:25 PM EST
[2018-01-09] MEDS: Metoclopramide 10 MG Tablet PO PRN ×3 (01:25→14:22)
[2018-01-09] MEDS: Morphine Sulfate Inj 2 MG/ML Vial IV.PUSH PRN ×6 (02:00→21:57)
[2018-01-09 05:31] LABS: Calcium 8.1 mg/dL (8.5-10.1); Potassium 4.7 meq/L (3.5-5.1)
[2018-01-09] MEDS: ceFAZolin 1 GM Premix Inj 1 GM/50 ML FROZ.PIGGY IV.SIG SCH ×3 (05:50→22:43)
[2018-01-09] MEDS: Senna/Docusate Sodium 8.6/50 MG Tablet PO SCH ×2 (08:11→21:57)
[2018-01-09] MEDS: Heparin - SQ 10,000 UNITS/ML Vial SQ SCH ×2 (08:11→21:57)
[2018-01-09] MEDS: Furosemide 20 MG Tablet PO SCH (09:55)
--- NOTE | 2018-01-09 12:53 | P.PN ---
Subjective Interval history: Complaining of more shortness of breath he is saturating well however on room air. The patient also has worsening lower extremity edema. Still with heel cups. Still with nausea, and vomiting scant amount of blood. Some cough pinkish sputum. She also complains of epigastric pain and abdominal pain. Says he was vomiting blood. Physical Exam Vital signs: Vital Signs 01/08/18 16:00 01/08/18 20:00 01/09/18 00:00 Temperature 97.2 F L 97.9 F 97.2 F L Pulse Rate 104 H 100 H 102 H Respiratory Rate 19 18 18 Blood Pressure 105/57 L 94/58 L 105/77 Pulse Oximetry 93 L 95 95 01/09/18 01:12 01/09/18 04:00 01/09/18 08:00 Temperature 97.8 F 98.2 F Pulse Rate 102 H 111 H 114 H Respiratory Rate 18 19 Blood Pressure 109/73 108/75 Pulse Oximetry 93 L 94 L 01/09/18 10:31 Temperature Pulse Rate Respiratory Rate 17 Blood Pressure Pulse Oximetry Intake & Output 01/08/18 01/09/18 01/09/18 18:59 06:59 18:59 Intake Total 1950 / 1950 620 / 620 Output Total 700 / 700 1200 / 1200 Balance 1250 / 1250 -580 / -580 Weight 94.2 kg Intake: IV 950 / 950 300 / 300 Sodium Bicarbonate 8.4% Inj 50 600 / 600 MEQ In D5W/1/2 NS Inj 950 ML @ 42 mls/hr IV.CONT .[id number] [facility] Rx#:[id number] Cipro 400 MG/200 ML Inj 400 mg 200 / 200 In 200 ml @ 200 mls/hr IV.SIG Q24H [facility] Rx#:[id number] Ancef 1 GM Premix Inj 1 gm In 50 / 50 100 / 100 50 ml @ 100 mls/hr IV.SIG Q8HR [facility] Rx#:[id number] Flagyl 500 MG Inj 100 ML @ 100 100 / 100 200 / 200 mls/hr IV.SIG Q8H [facility] Rx#: [id number] Oral 1000 / 1000 320 / 320 Output: Urine 700 / 700 1200 / 1200 Other: # Voids 2 1 Date of Last Bowel Movement 01/07/18 # Bowel Movements 1 Narrative: GENERAL: 37 yo M, well nourished well developed appears in nad. + Hiccups. SKIN: Multiple tatoos. Warm and dry. NECK: Supple, trachea midline. CARDIOVASCULAR: Regular rate and rhythm without murmurs, gallops, or rubs. RESPIRATORY: Breath sounds equal bilaterally. No accessory muscle use. GASTROINTESTINAL: Abdomen soft, non-tender, nondistended. MUSCULOSKELETAL: No cyanosis. Bilateral lower extremity edema +2. BACK: Nontender without obvious deformity. No CVA tenderness. NEURO: alert and oriented. No focal deficits. Results - Labs CBC & Chem 7: 01/06/18 04:36 01/09/18 03:38 Laboratory Results - last 24 hr 01/09/18 01/09/18 03:38 03:38 Sodium 126 L Potassium 4.7 Chloride 93 L Carbon Dioxide 25.0 Anion Gap 8 BUN 44 H Creatinine 2.12 H Estimated GFR 35 L Random Glucose 127 H Calcium 8.1 L B-Natriuretic Peptide 2174 H - Imaging Impressions Chest X-Ray 01/08/18 00:00 CONCLUSION: 1. Cardiomegaly with slight positive fluid balance. - Procedures none Assessment and Plan - Assessment (1) Abdominal pain Code(s): R10.9 - Unspecified abdominal pain Status: Acute (2) Acute cholecystitis Code(s): K81.0 - Acute cholecystitis Status: Acute (3) Elevated liver enzymes Code(s): R74.8 - Abnormal levels of other serum enzymes Status: Acute - Plan Cholecystitis - Per surgery and IR, this is chronic and that perc drain not needed. - Continue Abx therapy: Cefazolin, Ciprofloxacin and Metronidazole. 01/04: Followed by Vascular Surgery he has chronically thickened gallbladder wall and does not have acute cholecystitis, due to high risk non candidate for surgery. Abdominal pain, Elevated LFT from liver congestion - Monitor HGB. Vomiting scant blood. Will consult GI. - LFT elevated likely result of hypoperfusion from low EF from heart. Cardiorenal syndrome Acute kidney injury - result of poor effective circulating volume in setting of poor EF. Noted with worsening Creatinine level consult Nephrology specialist, [place] [facility]. Received sodium bicarb infusion. Off IVF at this time. With worsening edema. Monitor closely kidney function and clinical status as patient with chf Avoid nephrotoxic agents. Patient has worsening LE edema edema, sob, chest X ray showed volume overload Lasix 80 mg IV push Noted with hyponatremia sodium dropped to 126 give Samsca 30 mg per nephro Creatinine 2.1 worsening ( 01/09) Increase oral Lasix to 40 mg twice daily BNP 2174 Patient has underlying cardiorenal syndrome Cardiomyopathy with EF of 10% - reduced EF < 10% places patient at risk for sudden cardiac from arrhythmia. - keep K > 4 and Mg > 2 - Cardiology consulted and recommendations appreciated. Not a candidate for ICD. Can follow up outpatient with cardiology on discharge. - Patient developed hypotension likely from meds. Today, he is hemodynamically improved. Small fluid boluses or vasopressors as needed for hypotension. Reinitiate Lasix, coreg and lisinopril if tolerated consider restarting med one at a time. Not a candidate for Entresto secondary to hypotension and acute kidney injury. Discussed with case management, not a candidate for ICD/ LifeVest secondary to noncompliance. Patient had LifeVest for 3 months Psychiatry: Drug abuse - patient counselled on importance of stopping drug use. Patient verbalized understanding Hiccups. One-time Reglan IV. Add PRN renal dose reglan Code: FC dvt ppx with subcu heparin Code Status: Full code. Discussed Condition With: patient, nurse Discharge Planning: Pending improvement and clearance by consultants
[2018-01-09] MEDS: Ciprofloxacin 400 MG/200 ML 400 MG/200 ML PIGGYBACK IV.SIG SCH (14:22)
--- NOTE | 2018-01-09 15:36 | P.PNNP ---
Subjective Interval history: Patient is having increasing shortness of breath EF of 10% and congestive heart failure doing poorly with fluid retention Physical Exam Vital signs: Vital Signs 01/08/18 16:00 01/08/18 20:00 01/09/18 00:00 Temperature 97.2 F L 97.9 F 97.2 F L Pulse Rate 104 H 100 H 102 H Respiratory Rate 19 18 18 Blood Pressure 105/57 L 94/58 L 105/77 Pulse Oximetry 93 L 95 95 01/09/18 01:12 01/09/18 04:00 01/09/18 08:00 Temperature 97.8 F 98.2 F Pulse Rate 102 H 111 H 114 H Respiratory Rate 18 19 Blood Pressure 109/73 108/75 Pulse Oximetry 93 L 94 L 01/09/18 10:31 01/09/18 12:00 Temperature 98.6 F Pulse Rate 103 H Respiratory Rate 17 18 Blood Pressure 99/62 L Pulse Oximetry 95 Intake & Output 01/08/18 01/09/18 01/09/18 18:59 06:59 18:59 Intake Total 1950 / 1950 620 / 620 150 / 150 Output Total 700 / 700 1200 / 1200 Balance 1250 / 1250 -580 / -580 150 / 150 Weight 94.2 kg Intake: IV 950 / 950 300 / 300 150 / 150 Sodium Bicarbonate 8.4% Inj 50 600 / 600 MEQ In D5W/1/2 NS Inj 950 ML @ 42 mls/hr IV.CONT .[id number] [facility] Rx#:[id number] Cipro 400 MG/200 ML Inj 400 mg 200 / 200 In 200 ml @ 200 mls/hr IV.SIG Q24H [facility] Rx#:[id number] Ancef 1 GM Premix Inj 1 gm In 50 / 50 100 / 100 50 / 50 50 ml @ 100 mls/hr IV.SIG Q8HR [facility] Rx#:[id number] Flagyl 500 MG Inj 100 ML @ 100 100 / 100 200 / 200 100 / 100 mls/hr IV.SIG Q8H [facility] Rx#: [id number] Oral 1000 / 1000 320 / 320 Output: Urine 700 / 700 1200 / 1200 Other: # Voids 2 1 Date of Last Bowel Movement 01/07/18 # Bowel Movements 1 Narrative: GENERAL: 37 yo M, well nourished well developed appears in nad. + Hiccups. SKIN: Multiple tatoos. Warm and dry. NECK: Supple, trachea midline. CARDIOVASCULAR: Regular rate and rhythm without murmurs, gallops, or rubs. RESPIRATORY: Breath sounds bilateral rales. GASTROINTESTINAL: Abdomen soft, non-tender, nondistended. MUSCULOSKELETAL: 2+ edema at thighs region. BACK: Nontender without obvious deformity. No CVA tenderness. NEURO: alert and oriented. No focal deficits. Assessment and Plan - Assessment (1) Acute kidney injury Code(s): N17.9 - Acute kidney failure, unspecified Status: Acute Plan: Patient has edema, chest X ray showed volume overload, Lasix 80 mg IV push, sodium dropped to 126 give Samsca 30 mg off IV fluids Peripheral edema due to congestive heart failure and cardiomyopathy Resume Lasix oral Lasix Creatinine 2.1 Increase oral Lasix to 40 mg twice daily BNP 2176 Patient has underlying cardiorenal syndrome Dr. Reynoso follow-up
[2018-01-09 20:40] LABS: Baso % (Auto) 0.5 % (0.0-2.0); Eos % (Auto) 0.3 % (0.0-4.0); Hematocrit 43.9 % (39.0-51.0); Hemoglobin 14.6 gm/dL (13.0-17.0); Lymph # (Auto) 1.2 th/mm3 (1.0-4.8); Lymph % (Auto) 12.9 % (9.0-44.0); Mean Corpuscular HGB Conc 33.2 % (32.0-36.0); Mean Corpuscular Hemoglobin 31.7 pg (27.0-34.0); Mean Corpuscular Volume 95.5 fL (80.0-100.0); Mean Platelet Volume 9.1 fL (7.0-11.0); Mono # (Auto) 1.6 th/mm3 (0.0-0.9); Mono % (Auto) 17.5 % (0.0-8.0); Neut # (Auto) 6.3 th/mm3 (1.8-7.7); Neut % (Auto) 68.8 % (16.0-70.0); Platelet Count 158 th/mm3 (150-450); Red Cell Distribution Width 15.9 % (11.6-17.2); White Blood Count 9.2 th/mm3 (4.0-11.0)
[2018-01-10] MEDS: Morphine Sulfate Inj 2 MG/ML Vial IV.PUSH PRN ×6 (01:58→20:54)
[2018-01-10] MEDS: ceFAZolin 1 GM Premix Inj 1 GM/50 ML FROZ.PIGGY IV.SIG SCH ×3 (05:47→22:07)
[2018-01-10 07:46] LABS: Baso % (Auto) 0.4 % (0.0-2.0); Eos # (Auto) 0.1 th/mm3 (0.0-0.4); Eos % (Auto) 0.5 % (0.0-4.0); Hematocrit 46.6 % (39.0-51.0); Hemoglobin 15.5 gm/dL (13.0-17.0); Lymph # (Auto) 1.4 th/mm3 (1.0-4.8); Lymph % (Auto) 13.8 % (9.0-44.0); Mean Corpuscular HGB Conc 33.4 % (32.0-36.0); Mean Corpuscular Hemoglobin 32.3 pg (27.0-34.0); Mean Corpuscular Volume 96.9 fL (80.0-100.0); Mean Platelet Volume 9.1 fL (7.0-11.0); Mono # (Auto) 1.8 th/mm3 (0.0-0.9); Mono % (Auto) 18.1 % (0.0-8.0); Neut # (Auto) 6.6 th/mm3 (1.8-7.7); Neut % (Auto) 67.2 % (16.0-70.0); Platelet Count 166 th/mm3 (150-450); Red Blood Count 4.81 mil/mm3 (4.50-5.90); Red Cell Distribution Width 16.2 % (11.6-17.2); White Blood Count 9.9 th/mm3 (4.0-11.0)
[2018-01-10 08:19] LABS: Calcium 8.4 mg/dL (8.5-10.1); Carbon Dioxide 30.8 meq/L (21.0-32.0); Potassium 3.9 meq/L (3.5-5.1)
--- NOTE | 2018-01-10 08:20 | P.PN ---
Subjective Interval history: With hiccups. No abdominal pain. Edema improved some. Patient is asking for more pain medications. He is saturating well on room air. Says he is not eating much. Physical Exam Vital signs: Vital Signs 01/09/18 10:31 01/09/18 12:00 01/09/18 16:00 Temperature 98.6 F 98.1 F Pulse Rate 103 H 109 H Respiratory Rate 17 18 17 Blood Pressure 99/62 L 114/74 Pulse Oximetry 95 93 L 01/09/18 20:00 01/10/18 00:00 01/10/18 04:00 Temperature 98 F 98.1 F 97.2 F L Pulse Rate 101 H 100 H 113 H Respiratory Rate 20 20 18 Blood Pressure 107/60 104/63 124/60 Pulse Oximetry 98 94 L 94 L 01/10/18 07:56 Temperature 98.2 F Pulse Rate 99 H Respiratory Rate 18 Blood Pressure 102/60 Pulse Oximetry 92 L Intake & Output 01/09/18 01/10/18 01/10/18 18:59 06:59 18:59 Intake Total 925 / 925 620 / 620 Output Total 800 / 800 600 / 600 Balance 125 / 125 20 / 20 Weight 91.6 kg Intake: IV 350 / 350 300 / 300 Cipro 400 MG/200 ML Inj 400 mg 200 / 200 In 200 ml @ 200 mls/hr IV.SIG Q24H [facility] Rx#:[id number] Ancef 1 GM Premix Inj 1 gm In 50 / 50 100 / 100 50 ml @ 100 mls/hr IV.SIG Q8HR [facility] Rx#:[id number] Flagyl 500 MG Inj 100 ML @ 100 100 / 100 200 / 200 mls/hr IV.SIG Q8H [facility] Rx#: [id number] Oral 575 / 575 320 / 320 Output: Urine 800 / 800 600 / 600 Other: # Voids 2 # Bowel Movements 0 Narrative: GENERAL: 37 yo M, well nourished well developed appears in nad. + Hiccups. SKIN: Multiple tatoos. Warm and dry. CARDIOVASCULAR: Regular rate and rhythm without murmurs, gallops, or rubs. RESPIRATORY: Breath sounds equal bilaterally. No accessory muscle use. GASTROINTESTINAL: Abdomen soft, non-tender, nondistended. MUSCULOSKELETAL: No cyanosis. Bilateral lower extremity edema +2. BACK: Nontender without obvious deformity. No CVA tenderness. NEURO: alert and oriented. No focal deficits. Results - Labs CBC & Chem 7: 01/10/18 07:25 01/10/18 07:25 Laboratory Results - last 24 hr 01/09/18 01/10/18 01/10/18 20:20 07:25 07:25 WBC 9.2 9.9 RBC 4.60 4.81 Hgb 14.6 15.5 Hct 43.9 46.6 MCV 95.5 96.9 MCH 31.7 32.3 MCHC 33.2 33.4 RDW 15.9 16.2 Plt Count 158 166 MPV 9.1 9.1 Neut % (Auto) 68.8 67.2 Lymph % (Auto) 12.9 13.8 Craig % (Auto) 17.5 H 18.1 H Eos % (Auto) 0.3 0.5 Baso % (Auto) 0.5 0.4 Neut # (Auto) 6.3 6.6 Lymph # (Auto) 1.2 1.4 Craig # (Auto) 1.6 H 1.8 H Eos # (Auto) 0.0 0.1 Baso # (Auto) 0.0 0.0 WBC Differential . . Differential Comment Auto diff final Auto diff final Sodium 132 L Potassium 3.9 D Chloride 94 L Carbon Dioxide 30.8 Anion Gap 7 BUN 45 H Creatinine 2.29 H Estimated GFR 32 L Random Glucose 108 H Calcium 8.4 L - Procedures none Assessment and Plan - Assessment (1) Abdominal pain Code(s): R10.9 - Unspecified abdominal pain Status: Acute (2) Acute cholecystitis Code(s): K81.0 - Acute cholecystitis Status: Acute (3) Elevated liver enzymes Code(s): R74.8 - Abnormal levels of other serum enzymes Status: Acute - Plan Cholecystitis - Per surgery and IR, this is chronic and that perc drain not needed. - Continue Abx therapy: Cefazolin, Ciprofloxacin and Metronidazole. 01/04: Followed by Vascular Surgery he has chronically thickened gallbladder wall and does not have acute cholecystitis, due to high risk non candidate for surgery. Abdominal pain, Elevated LFT from liver congestion - Monitor HGB. Vomiting scant blood. Will consult GI. - LFT elevated likely result of hypoperfusion from low EF from heart. Cardiorenal syndrome Acute kidney injury - result of poor effective circulating volume in setting of poor EF. Noted with worsening Creatinine level consult Nephrology specialist, appreciate recs. Received sodium bicarb infusion. Off IVF at this time. With worsening edema. Monitor closely kidney function and clinical status as patient with chf Avoid nephrotoxic agents. Patient has worsening LE edema edema, sob, chest X ray showed volume overload Lasix 80 mg IV push Noted with hyponatremia sodium dropped to 126 give Samsca 30 mg per nephro Creatinine 2.1 worsening ( 01/09) Increase oral Lasix to 40 mg twice daily BNP 2174 Patient has underlying cardiorenal syndrome Cardiomyopathy with EF of 10% - reduced EF < 10% places patient at risk for sudden cardiac from arrhythmia. - keep K > 4 and Mg > 2 - Cardiology consulted and recommendations appreciated. Not a candidate for ICD. Can follow up outpatient with cardiology on discharge. - Patient developed hypotension likely from meds. Today, he is hemodynamically improved. Small fluid boluses or vasopressors as needed for hypotension. Reinitiate Lasix, coreg and lisinopril if tolerated consider restarting med one at a time. Not a candidate for Entresto secondary to hypotension and acute kidney injury. Discussed with case management, not a candidate for ICD/ LifeVest secondary to noncompliance. Patient had LifeVest for 3 months Psychiatry: Drug abuse - patient counselled on importance of stopping drug use. Patient verbalized understanding Hiccups. One-time Reglan IV. Add PRN renal dose reglan Code: FC dvt ppx with subcu heparin Code Status: Full code. Discussed Condition With: patient, nurse Discharge Planning: Pending improvement and clearance by consultants We will consult palliative care for goals of care
[2018-01-10] MEDS: Heparin - SQ 10,000 UNITS/ML Vial SQ SCH ×2 (10:45→20:54)
[2018-01-10] MEDS: Senna/Docusate Sodium 8.6/50 MG Tablet PO SCH ×2 (10:46→20:54)
[2018-01-10] MEDS: Furosemide 20 MG Tablet PO SCH ×2 (10:46→18:50)
--- NOTE | 2018-01-10 13:06 | P.PNGI ---
Subjective Interval history: Patient awake and alert laying supine in bed Significant other at bedside visiting Patient reporting right upper quadrant abdominal pain with dark emesis and stools for 10 days. Patient reports decreased appetite for 5 days. <Mihaela Laura - Last Filed: 01/10/18 12:53> Physical Exam Vital signs: Vital Signs 01/09/18 16:00 01/09/18 20:00 01/10/18 00:00 Temperature 98.1 F 98 F 98.1 F Pulse Rate 109 H 101 H 100 H Respiratory Rate 17 20 20 Blood Pressure 114/74 107/60 104/63 Pulse Oximetry 93 L 98 94 L 01/10/18 04:00 01/10/18 07:56 01/10/18 12:00 Temperature 97.2 F L 98.2 F 97.4 F L Pulse Rate 113 H 99 H 115 H Respiratory Rate 18 18 18 Blood Pressure 124/60 102/60 110/78 Pulse Oximetry 94 L 92 L 96 Intake & Output 01/09/18 01/10/18 01/10/18 18:59 06:59 18:59 Intake Total 925 / 925 620 / 620 Output Total 800 / 800 600 / 600 Balance 125 / 125 20 / 20 Weight 91.6 kg Intake: IV 350 / 350 300 / 300 Cipro 400 MG/200 ML Inj 400 mg 200 / 200 In 200 ml @ 200 mls/hr IV.SIG Q24H [facility] Rx#:[id number] Ancef 1 GM Premix Inj 1 gm In 50 / 50 100 / 100 50 ml @ 100 mls/hr IV.SIG Q8HR [facility] Rx#:[id number] Flagyl 500 MG Inj 100 ML @ 100 100 / 100 200 / 200 mls/hr IV.SIG Q8H [facility] Rx#: [id number] Oral 575 / 575 320 / 320 Output: Urine 800 / 800 600 / 600 Other: # Voids 2 # Bowel Movements 0 - Constitutional no acute distress, chronically ill appearing - Routine HEENT Exam Head: Present: normocephalic - Routine Respiratory Exam Present: CTA bilaterally. Absent: accessory muscle use - Routine Cardiovascular Exam Present: RRR - Routine Abdominal Exam Present: soft, normoactive bowel sounds, tenderness. Absent: distended, guarding, firm, rigid Comments: Patient reports right upper quadrant tenderness on palpation during exam History of chronic cholecystitis - Routine Extremities Exam Present: edema, pulses intact - Routine Skin Exam Present: dry, warm Comments: Multiple tattoos generalized - Routine Neurological Exam Present: alert - Routine Psychiatric Exam Present: normal affect, cooperative <Mihaela Laura - Last Filed: 01/10/18 12:53> Vital signs: Vital Signs 01/09/18 20:00 01/10/18 00:00 01/10/18 04:00 Temperature 98 F 98.1 F 97.2 F L Pulse Rate 101 H 100 H 113 H Respiratory Rate 20 20 18 Blood Pressure 107/60 104/63 124/60 Pulse Oximetry 98 94 L 94 L 01/10/18 07:56 01/10/18 08:00 01/10/18 12:00 Temperature 98.2 F 97.4 F L Pulse Rate 99 H 113 H 115 H Respiratory Rate 18 18 Blood Pressure 102/60 110/78 Pulse Oximetry 92 L 96 01/10/18 15:52 Temperature 98.1 F Pulse Rate 106 H Respiratory Rate 18 Blood Pressure 103/69 Pulse Oximetry 96 Intake & Output 01/09/18 01/10/18 01/10/18 18:59 06:59 18:59 Intake Total 925 / 925 620 / 620 Output Total 800 / 800 600 / 600 Balance 125 / 125 20 / 20 Weight 91.6 kg Intake: IV 350 / 350 300 / 300 Cipro 400 MG/200 ML Inj 400 mg 200 / 200 In 200 ml @ 200 mls/hr IV.SIG Q24H [facility] Rx#:[id number] Ancef 1 GM Premix Inj 1 gm In 50 / 50 100 / 100 50 ml @ 100 mls/hr IV.SIG Q8HR [facility] Rx#:[id number] Flagyl 500 MG Inj 100 ML @ 100 100 / 100 200 / 200 mls/hr IV.SIG Q8H [facility] Rx#: [id number] Oral 575 / 575 320 / 320 Output: Urine 800 / 800 600 / 600 Other: # Voids 2 # Bowel Movements 0 <Yovana Kolb - Last Filed: 01/10/18 18:15> Results - Labs CBC & Chem 7: 01/10/18 07:25 01/10/18 07:25 Laboratory Results - last 24 hr 01/09/18 01/10/18 01/10/18 20:20 07:25 07:25 WBC 9.2 9.9 RBC 4.60 4.81 Hgb 14.6 15.5 Hct 43.9 46.6 MCV 95.5 96.9 MCH 31.7 32.3 MCHC 33.2 33.4 RDW 15.9 16.2 Plt Count 158 166 MPV 9.1 9.1 Neut % (Auto) 68.8 67.2 Lymph % (Auto) 12.9 13.8 Perkins % (Auto) 17.5 H 18.1 H Eos % (Auto) 0.3 0.5 Baso % (Auto) 0.5 0.4 Neut # (Auto) 6.3 6.6 Lymph # (Auto) 1.2 1.4 Perkins # (Auto) 1.6 H 1.8 H Eos # (Auto) 0.0 0.1 Baso # (Auto) 0.0 0.0 WBC Differential . . Differential Comment Auto diff final Auto diff final Sodium 132 L Potassium 3.9 D Chloride 94 L Carbon Dioxide 30.8 Anion Gap 7 BUN 45 H Creatinine 2.29 H Estimated GFR 32 L Random Glucose 108 H Calcium 8.4 L - Procedures none <Mihaela Laura - Last Filed: 01/10/18 12:53> - Labs CBC & Chem 7: 01/10/18 07:25 01/10/18 07:25 Laboratory Results - last 24 hr 01/09/18 01/10/18 01/10/18 20:20 07:25 07:25 WBC 9.2 9.9 RBC 4.60 4.81 Hgb 14.6 15.5 Hct 43.9 46.6 MCV 95.5 96.9 MCH 31.7 32.3 MCHC 33.2 33.4 RDW 15.9 16.2 Plt Count 158 166 MPV 9.1 9.1 Neut % (Auto) 68.8 67.2 Lymph % (Auto) 12.9 13.8 Perkins % (Auto) 17.5 H 18.1 H Eos % (Auto) 0.3 0.5 Baso % (Auto) 0.5 0.4 Neut # (Auto) 6.3 6.6 Lymph # (Auto) 1.2 1.4 Perkins # (Auto) 1.6 H 1.8 H Eos # (Auto) 0.0 0.1 Baso # (Auto) 0.0 0.0 WBC Differential . . Differential Comment Auto diff final Auto diff final Sodium 132 L Potassium 3.9 D Chloride 94 L Carbon Dioxide 30.8 Anion Gap 7 BUN 45 H Creatinine 2.29 H Estimated GFR 32 L Random Glucose 108 H Calcium 8.4 L <Yovana Kolb - Last Filed: 01/10/18 18:15> Assessment and Plan (1) Abdominal pain Status: Acute Code(s): R10.9 - Unspecified abdominal pain - Plan This patient is a 37-year-old male with a significant past medical history of congestive heart failure with an EF of 20%, chronic kidney disease, cocaine abuse, past skull fracture, and cardiomyopathy. Patient presented to the ER at [facility] on 01/01/2018 with complaint of right-sided abdominal pain onset 3 days ago. Patient describes the pain as sharp and spasmodic states that it is intermittent and is aggravated by eating fried or fatty foods and also with carbonated beverages. Patient endorses decreased appetite over the last week. Patient unsure if he has ever had upper endoscopy in the past. Denies ever having had a colonoscopy in the past. Patient reports one episode of dark emesis and dark stools 3 days ago. Patient describes same as dark brown in color. Patient denies use of NSAIDs or aspirin. Patient denies any known family history for gastrointestinal disorders. States he smokes 3 cigarettes/week. Reports he is a social drinker of alcoholic products. Upon consultation, patient denies any use of illicit drugs however, upon admission he acknowledged using cocaine earlier prior to admission because he thought it would relieve his abdominal pain. Patient was recently admitted 1 week ago for chest pain with exacerbation of CHF. Our service has been consulted to evaluate patient for abdominal pain with nausea vomiting and dark stools. Abdominal pain Possible melena stools/hematemesis Patient endorses 3-day history of right-sided abdominal pain that he describes as spasmodic. Patient rates pain at 8 out of 10 and states it is aggravated by eating fried or fatty foods. Patient reports one episode of dark emesis and stools 3 days ago. Patient denies use of NSAIDs or aspirin. 01/01/2018 hemoglobin 17.1 hematocrit 52.4 BUN 24 creatinine 2.2 GFR 33 lipase 84 01/01/2018 CT abdomen and pelvis revealed the following findings-- Thick-walled gallbladder containing hyperdense material suggesting sludge and pericholecystic inflammation. The findings suggest acute cholecystitis. Clinical correlation is recommended. Enlarged liver. Markedly enlarged heart. Small amount of ascites within the abdomen or pelvis. Mild degenerative changes and scoliosis of the thoracolumbar spine. 01/02/2018 Abdominal pain/cholecystitis/choledocholithiasis Patient resting soundly. Continued abdominal pain reported. No reported bleeding. Per general surgery consultation, patient is not a surgical candidate due to ejection fraction of less than 10% during last admission. We will consult IR for percutaneous drainage of gallbladder. Hemoglobin 16.2 hematocrit 46.2 platelet count 196 Total bilirubin 1.0 AST 181 ALT 177 alk phos 74. 01/02/18 Spoke with , who feels patient not considered a candidate for percutaneous drainage as HIDA scan normal and cystic duct patent. 01/10/2018 -GI has been asked to evaluate patient for ongoing report of dark emesis and stools. Patient reporting decreased appetite for 5 days with black tarry stools and emesis for 10 days. Patient states he is having intermittent bouts of heartburn for which he takes Tums. Reports chronic right upper quadrant pain that radiates to epigastric area. During exam patient had small amount of emesis clear colored. -01/01/2018 CT abdomen and pelvis-- 1. Thick-walled gallbladder containing hyperdense material suggesting sludge and pericholecystic inflammation. The findings suggest acute cholecystitis. Clinical correlation is recommended. 2. Enlarged liver. 3. Markedly enlarged heart. 4. Small amount of ascites within the abdomen or pelvis. 5. Mild degenerative changes and scoliosis of the thoracolumbar spine. -01/10/2018 WBC 9.9 hemoglobin 15.5 hematocrit 46.6 and stable Plan -Clear liquid diet- will consider advancing if no bleeding -Avoid NSAIDs or aspirin -Analgesics and antiemetics as per attending -Monitor labs hemoglobin and hematocrit -Pantoprazole 40 mg IV twice daily -Patient may require upper endoscopy-will need cardiology clearance -We will continue to monitor patient closely -Supportive care This patient has been seen by myself and and this note is written on his behalf - Attending Attestation Dr. Kolb <Mihaela Laura - Last Filed: 01/10/18 12:53> (1) Abdominal pain Status: Acute Code(s): R10.9 - Unspecified abdominal pain - Attending Attestation Agree with above assessment and plan. Will follow up with you. <Yovana Kolb - Last Filed: 01/10/18 18:15>
[2018-01-10] MEDS: Ciprofloxacin 400 MG/200 ML 400 MG/200 ML PIGGYBACK IV.SIG SCH (14:12)
[2018-01-10] MEDS: Pantoprazole Inj 40 MG Vial IV.PUSH SCH (14:21)
--- NOTE | 2018-01-10 15:53 | P.PNNP ---
Subjective Interval history: Reports intractable hiccups, feeling very frustrated. Denies any shortness of breath, continues to have bilateral lower extremity edema. Creatinine at 2.29. <Karin Zhu - Last Filed: 01/10/18 15:44> Physical Exam Vital signs: Vital Signs 01/09/18 16:00 01/09/18 20:00 01/10/18 00:00 Temperature 98.1 F 98 F 98.1 F Pulse Rate 109 H 101 H 100 H Respiratory Rate 17 20 20 Blood Pressure 114/74 107/60 104/63 Pulse Oximetry 93 L 98 94 L 01/10/18 04:00 01/10/18 07:56 01/10/18 12:00 Temperature 97.2 F L 98.2 F 97.4 F L Pulse Rate 113 H 99 H 115 H Respiratory Rate 18 18 18 Blood Pressure 124/60 102/60 110/78 Pulse Oximetry 94 L 92 L 96 Intake & Output 01/09/18 01/10/18 01/10/18 18:59 06:59 18:59 Intake Total 925 / 925 620 / 620 Output Total 800 / 800 600 / 600 Balance 125 / 125 20 / 20 Weight 91.6 kg Intake: IV 350 / 350 300 / 300 Cipro 400 MG/200 ML Inj 400 mg 200 / 200 In 200 ml @ 200 mls/hr IV.SIG Q24H [facility] Rx#:[id number] Ancef 1 GM Premix Inj 1 gm In 50 / 50 100 / 100 50 ml @ 100 mls/hr IV.SIG Q8HR [facility] Rx#:[id number] Flagyl 500 MG Inj 100 ML @ 100 100 / 100 200 / 200 mls/hr IV.SIG Q8H [facility] Rx#: [id number] Oral 575 / 575 320 / 320 Output: Urine 800 / 800 600 / 600 Other: # Voids 2 # Bowel Movements 0 Narrative: GENERAL: Alert and oriented. Hiccups SKIN: Warm and dry. NECK: Supple, trachea midline. CARDIOVASCULAR: Regular rate and rhythm without murmurs, gallops, or rubs. RESPIRATORY: Breath sounds equal bilaterally. No accessory muscle use. GASTROINTESTINAL: Abdomen soft, non-tender, nondistended. MUSCULOSKELETAL: No cyanosis. Bilateral lower extremity edema +2. BACK: Nontender without obvious deformity. No CVA tenderness. NEURO: alert and oriented. No focal deficits. <Karin Zhu - Last Filed: 01/10/18 15:44> Vital signs: Vital Signs 01/11/18 21:15 01/12/18 00:00 01/12/18 04:00 Temperature 97.2 F L 97.6 F Pulse Rate 104 H 98 H Respiratory Rate 18 18 18 Blood Pressure 104/73 102/70 Pulse Oximetry 95 96 01/12/18 08:00 01/12/18 09:23 01/12/18 12:00 Temperature 97.4 F L 97.4 F L Pulse Rate 101 H 107 H Respiratory Rate 19 18 17 Blood Pressure 109/68 97/69 L Pulse Oximetry 96 93 L 01/12/18 13:40 01/12/18 16:00 01/12/18 16:54 Temperature 97.9 F Pulse Rate 99 H 110 H Respiratory Rate 18 18 Blood Pressure 100/67 Pulse Oximetry 97 01/12/18 17:46 01/12/18 20:00 Temperature 97.1 F L Pulse Rate 110 H Respiratory Rate 18 18 Blood Pressure 109/77 Pulse Oximetry 94 L Intake & Output 01/12/18 01/12/18 01/13/18 06:59 18:59 06:59 Intake Total 1050 / 1050 1400 / 1400 Balance 1050 / 1050 1400 / 1400 Weight 91.4 kg Intake: IV 150 / 150 200 / 200 Ancef 1 GM Premix Inj 1 gm In 50 / 50 100 / 100 50 ml @ 100 mls/hr IV.SIG Q8HR [facility] Rx#:[id number] Flagyl 500 MG Inj 100 ML @ 100 100 / 100 100 / 100 mls/hr IV.SIG Q8H [facility] Rx#: [id number] Oral 900 / 900 1200 / 1200 Other: # Voids 5 4 Date of Last Bowel Movement 01/11/18 <Preet Reynoso - Last Filed: 01/12/18 20:26> Assessment and Plan - Assessment (1) Acute kidney injury Code(s): N17.9 - Acute kidney failure, unspecified Status: Acute Plan: Acute kidney injury Creatinine noted to be 1.0 on April 20, 2017. BENOIT from cardiorenal syndrome. CT of abdomen with kidneys normal in size and shape. No evidence of mass or hydronephrosis. Creatinine at 2.29, good urinary output. Avoid nephrotoxin agents as possible Continue lasix 40 mg BID. Will follow urinary output and BMP Labs in AM (2) Acute cholecystitis Code(s): K81.0 - Acute cholecystitis Status: Acute Plan: On antibiotics, flagyl and ciprofloxacin. (3) CHF (congestive heart failure) Code(s): I50.9 - Heart failure, unspecified Status: Acute Plan: On lasix 40 BID <Karin Zhu - Last Filed: 01/10/18 15:44> - Assessment (1) Acute kidney injury Code(s): N17.9 - Acute kidney failure, unspecified Status: Acute Plan: Patient seen and examined, agree with above. Creatinine remain stable, non oliguric. Continue Lasix. (2) Acute cholecystitis Code(s): K81.0 - Acute cholecystitis Status: Acute (3) CHF (congestive heart failure) Code(s): I50.9 - Heart failure, unspecified Status: Acute <Preet Reynoso - Last Filed: 01/12/18 20:26>
[2018-01-11] MEDS: Pantoprazole Inj 40 MG Vial IV.PUSH SCH ×2 (01:09→13:46)
[2018-01-11] MEDS: Morphine Sulfate Inj 2 MG/ML Vial IV.PUSH PRN ×6 (01:12→21:13)
[2018-01-11] MEDS: ceFAZolin 1 GM Premix Inj 1 GM/50 ML FROZ.PIGGY IV.SIG SCH ×3 (06:08→22:13)
[2018-01-11] MEDS: Metoclopramide 10 MG Tablet PO PRN ×3 (06:13→17:34)
[2018-01-11 07:25] LABS: Baso # (Auto) 0.1 th/mm3 (0.0-0.2); Baso % (Auto) 0.6 % (0.0-2.0); Eos % (Auto) 0.5 % (0.0-4.0); Hematocrit 44.5 % (39.0-51.0); Hemoglobin 15.3 gm/dL (13.0-17.0); Lymph # (Auto) 1.5 th/mm3 (1.0-4.8); Lymph % (Auto) 17.4 % (9.0-44.0); Mean Corpuscular HGB Conc 34.3 % (32.0-36.0); Mean Corpuscular Hemoglobin 32.3 pg (27.0-34.0); Mean Corpuscular Volume 94.3 fL (80.0-100.0); Mean Platelet Volume 9.1 fL (7.0-11.0); Mono # (Auto) 1.5 th/mm3 (0.0-0.9); Mono % (Auto) 17.3 % (0.0-8.0); Neut # (Auto) 5.5 th/mm3 (1.8-7.7); Neut % (Auto) 64.2 % (16.0-70.0); Platelet Count 168 th/mm3 (150-450); Red Blood Count 4.72 mil/mm3 (4.50-5.90); Red Cell Distribution Width 16.2 % (11.6-17.2); White Blood Count 8.5 th/mm3 (4.0-11.0)
[2018-01-11 07:42] LABS: Calcium 8.2 mg/dL (8.5-10.1); Potassium 3.8 meq/L (3.5-5.1)
[2018-01-11 07:43] LABS: Carbon Dioxide 29.6 meq/L (21.0-32.0)
[2018-01-11] MEDS: Senna/Docusate Sodium 8.6/50 MG Tablet PO SCH ×2 (08:34→21:15)
[2018-01-11] MEDS: Heparin - SQ 10,000 UNITS/ML Vial SQ SCH ×2 (08:35→21:13)
[2018-01-11] MEDS: Furosemide 20 MG Tablet PO SCH ×2 (08:38→17:34)
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
[2018-01-11] MEDS: Ciprofloxacin 400 MG/200 ML 400 MG/200 ML PIGGYBACK IV.SIG SCH (15:55)
--- NOTE | 2018-01-11 15:56 | P.PNGI ---
Subjective Interval history: Patient is sitting up in the bed eating some scrambled egg sandwich brought down from the outside States he still has abdominal pain off and on Encourage patient to eat very slowly, even though this is not been ordered dietary plan <Molly Flores - Last Filed: 01/11/18 15:56> Physical Exam Vital signs: Vital Signs 01/10/18 20:00 01/11/18 00:00 01/11/18 04:00 Temperature 98.2 F 97.9 F 98.2 F Pulse Rate 104 H 99 H 99 H Respiratory Rate 20 17 18 Blood Pressure 105/70 109/56 L 103/57 L Pulse Oximetry 95 95 95 01/11/18 08:00 01/11/18 12:00 Temperature 97.5 F L Pulse Rate 103 H 102 H Respiratory Rate 16 Blood Pressure 111/71 Pulse Oximetry Intake & Output 01/10/18 01/11/18 01/11/18 18:59 06:59 18:59 Intake Total 1550 / 1550 300 / 300 100 / 100 Output Total 0 / 0 Balance 1550 / 1550 300 / 300 100 / 100 Weight 91.4 kg Intake: IV 350 / 350 300 / 300 100 / 100 Cipro 400 MG/200 ML Inj 400 mg 200 / 200 In 200 ml @ 200 mls/hr IV.SIG Q24H [facility] Rx#:[id number] Ancef 1 GM Premix Inj 1 gm In 50 / 50 100 / 100 50 ml @ 100 mls/hr IV.SIG Q8HR [facility] Rx#:[id number] Flagyl 500 MG Inj 100 ML @ 100 100 / 100 200 / 200 100 / 100 mls/hr IV.SIG Q8H [facility] Rx#: [id number] Oral 1200 / 1200 Output: Urine 0 / 0 Other: # Voids 3 - Constitutional mild distress, thin, cachectic, chronically ill appearing, agitated (Mild, multiple tattoos) - Routine HEENT Exam ENT: Present: mucous membranes dry - Routine Respiratory Exam Present: decreased breath sounds (Lung volumes no audible wheezing) - Routine Cardiovascular Exam Present: S1, S2 (Distant) - Routine Abdominal Exam Present: normoactive bowel sounds (Soft bowel sounds, minimal, generalized mid to right upper quadrant abdominal discomfort, seems to wax and wane) - Routine Skin Exam Present: scars (Tattoos) <Molly Flores - Last Filed: 01/11/18 15:56> Vital signs: Vital Signs 01/11/18 16:00 01/11/18 20:00 01/11/18 21:15 Temperature 97.3 F L 97.1 F L Pulse Rate 106 H 111 H Respiratory Rate 18 18 18 Blood Pressure 101/49 L 100/68 Pulse Oximetry 98 97 01/12/18 00:00 01/12/18 04:00 01/12/18 08:00 Temperature 97.2 F L 97.6 F 97.4 F L Pulse Rate 104 H 98 H 101 H Respiratory Rate 18 18 19 Blood Pressure 104/73 102/70 109/68 Pulse Oximetry 95 96 96 01/12/18 09:23 01/12/18 12:00 Temperature 97.4 F L Pulse Rate 107 H Respiratory Rate 18 17 Blood Pressure 97/69 L Pulse Oximetry 93 L Intake & Output 01/11/18 01/12/18 01/12/18 18:59 06:59 18:59 Intake Total 350 / 350 1050 / 1050 150 / 150 Balance 350 / 350 1050 / 1050 150 / 150 Weight 91.4 kg Intake: IV 350 / 350 150 / 150 150 / 150 Cipro 400 MG/200 ML Inj 400 mg 200 / 200 In 200 ml @ 200 mls/hr IV.SIG Q24H [facility] Rx#:[id number] Ancef 1 GM Premix Inj 1 gm In 50 / 50 50 / 50 50 / 50 50 ml @ 100 mls/hr IV.SIG Q8HR [facility] Rx#:[id number] Flagyl 500 MG Inj 100 ML @ 100 100 / 100 100 / 100 100 / 100 mls/hr IV.SIG Q8H [facility] Rx#: [id number] Oral 900 / 900 Other: # Voids 5 Date of Last Bowel Movement 01/11/18 <Yovana Kolb - Last Filed: 01/12/18 14:43> Results - Labs CBC & Chem 7: 01/11/18 05:55 01/11/18 05:55 Laboratory Results - last 24 hr 01/11/18 01/11/18 01/11/18 05:55 05:55 05:55 WBC 8.5 RBC 4.72 Hgb 15.3 Hct 44.5 MCV 94.3 MCH 32.3 MCHC 34.3 RDW 16.2 Plt Count 168 MPV 9.1 Neut % (Auto) 64.2 Lymph % (Auto) 17.4 [place] % (Auto) 17.3 H Eos % (Auto) 0.5 Baso % (Auto) 0.6 Neut # (Auto) 5.5 Lymph # (Auto) 1.5 [place] # (Auto) 1.5 H Eos # (Auto) 0.0 Baso # (Auto) 0.1 WBC Differential . Differential Comment Auto diff final APTT 45.7 H Sodium 133 L Potassium 3.8 Chloride 95 L Carbon Dioxide 29.6 Anion Gap 8 BUN 44 H Creatinine 2.11 H Estimated GFR 35 L Random Glucose 109 H Calcium 8.2 L - Procedures none <Molly Flores - Last Filed: 01/11/18 15:56> - Labs CBC & Chem 7: 01/12/18 03:49 01/12/18 03:49 Laboratory Results - last 24 hr 01/12/18 01/12/18 03:49 03:49 WBC 8.6 RBC 4.50 Hgb 14.1 Hct 42.8 MCV 95.1 MCH 31.4 MCHC 33.1 RDW 16.1 Plt Count 164 MPV 9.0 Neut % (Auto) 68.4 Lymph % (Auto) 15.1 [place] % (Auto) 15.0 H Eos % (Auto) 0.7 Baso % (Auto) 0.8 Neut # (Auto) 5.9 Lymph # (Auto) 1.3 [place] # (Auto) 1.3 H Eos # (Auto) 0.1 Baso # (Auto) 0.1 WBC Differential . Differential Comment Auto diff final Sodium 135 L Potassium 3.7 Chloride 97 L Carbon Dioxide 29.5 Anion Gap 9 BUN 38 H Creatinine 1.94 H Estimated GFR 39 L Random Glucose 106 Calcium 7.7 L <Yovana Kolb - Last Filed: 01/12/18 14:43> Assessment and Plan (1) Abdominal pain Status: Acute Code(s): R10.9 - Unspecified abdominal pain - Plan This patient is a 37-year-old male with a significant past medical history of congestive heart failure with an EF of 20%, chronic kidney disease, cocaine abuse, past skull fracture, and cardiomyopathy. Patient presented to the ER at [facility] on 01/01/2018 with complaint of right-sided abdominal pain onset 3 days ago. Patient describes the pain as sharp and spasmodic states that it is intermittent and is aggravated by eating fried or fatty foods and also with carbonated beverages. Patient endorses decreased appetite over the last week. Patient unsure if he has ever had upper endoscopy in the past. Denies ever having had a colonoscopy in the past. Patient reports one episode of dark emesis and dark stools 3 days ago. Patient describes same as dark brown in color. Patient denies use of NSAIDs or aspirin. Patient denies any known family history for gastrointestinal disorders. States he smokes 3 cigarettes/week. Reports he is a social drinker of alcoholic products. Upon consultation, patient denies any use of illicit drugs however, upon admission he acknowledged using cocaine earlier prior to admission because he thought it would relieve his abdominal pain. Patient was recently admitted 1 week ago for chest pain with exacerbation of CHF. Our service has been consulted to evaluate patient for abdominal pain with nausea vomiting and dark stools. Abdominal pain Possible melena stools/hematemesis Patient endorses 3-day history of right-sided abdominal pain that he describes as spasmodic. Patient rates pain at 8 out of 10 and states it is aggravated by eating fried or fatty foods. Patient reports one episode of dark emesis and stools 3 days ago. Patient denies use of NSAIDs or aspirin. 01/01/2018 hemoglobin 17.1 hematocrit 52.4 BUN 24 creatinine 2.2 GFR 33 lipase 84 01/01/2018 CT abdomen and pelvis revealed the following findings-- Thick-walled gallbladder containing hyperdense material suggesting sludge and pericholecystic inflammation. The findings suggest acute cholecystitis. Clinical correlation is recommended. Enlarged liver. Markedly enlarged heart. Small amount of ascites within the abdomen or pelvis. Mild degenerative changes and scoliosis of the thoracolumbar spine. 01/02/2018 Abdominal pain/cholecystitis/choledocholithiasis Patient resting soundly. Continued abdominal pain reported. No reported bleeding. Per general surgery consultation, patient is not a surgical candidate due to ejection fraction of less than 10% during last admission. We will consult IR for percutaneous drainage of gallbladder. Hemoglobin 16.2 hematocrit 46.2 platelet count 196 Total bilirubin 1.0 AST 181 ALT 177 alk phos 74. 01/02/18 Spoke with , who feels patient not considered a candidate for percutaneous drainage as HIDA scan normal and cystic duct patent. 01/10/2018 -GI has been asked to evaluate patient for ongoing report of dark emesis and stools. Patient reporting decreased appetite for 5 days with black tarry stools and emesis for 10 days. Patient states he is having intermittent bouts of heartburn for which he takes Tums. Reports chronic right upper quadrant pain that radiates to epigastric area. During exam patient had small amount of emesis clear colored. -01/01/2018 CT abdomen and pelvis-- 1. Thick-walled gallbladder containing hyperdense material suggesting sludge and pericholecystic inflammation. The findings suggest acute cholecystitis. Clinical correlation is recommended. 2. Enlarged liver. 3. Markedly enlarged heart. 4. Small amount of ascites within the abdomen or pelvis. 5. Mild degenerative changes and scoliosis of the thoracolumbar spine. -01/10/2018 WBC 9.9 hemoglobin 15.5 hematocrit 46.6 and stable 01/11/2018 patient is sitting up in the bed , attempting to eat large soft scrambled egg sandwich brought down from a female friend. Patient states still having some mid to right upper quadrant abdominal pain but does seem to have improved over the past 24 hours but does note it waxes and wanes. States he is not eating anything for days and he wants food. Appreciate palliative care input and supportive care. Currently patient needs monitoring of his symptoms and labs and supportive care but is reliant no further recommendations or procedures from a GI perspective. Plan .He is clear liquid but patient is eating outside food as tolerated. Advised patient to eat very slowly and small amounts at a time. Monitor labs Continue PPI Avoid NSAIDs Avoid illegal drugs of choice Pain meds per attending Supportive care Patient was seen per myself and Dr. Kolb, note was written on his behalf <Molly Flores - Last Filed: 01/11/18 15:56> (1) Abdominal pain Status: Acute Code(s): R10.9 - Unspecified abdominal pain - Attending Attestation Agree with above assessment and plan. Will follow up with you. <Yovana Kolb - Last Filed: 01/12/18 14:43>
--- NOTE | 2018-01-11 16:30 | P.PNNP ---
Subjective Interval history: Continues to have hiccups. Complains of abdominal pain with nausea. Bilateral lower extremity edema. Creatinine improving at 2.11. Physical Exam Vital signs: Vital Signs 01/10/18 20:00 01/11/18 00:00 01/11/18 04:00 Temperature 98.2 F 97.9 F 98.2 F Pulse Rate 104 H 99 H 99 H Respiratory Rate 20 17 18 Blood Pressure 105/70 109/56 L 103/57 L Pulse Oximetry 95 95 95 01/11/18 08:00 01/11/18 12:00 Temperature 97.5 F L Pulse Rate 103 H 102 H Respiratory Rate 16 Blood Pressure 111/71 Pulse Oximetry Intake & Output 01/10/18 01/11/18 01/11/18 18:59 06:59 18:59 Intake Total 1550 / 1550 300 / 300 150 / 150 Output Total 0 / 0 Balance 1550 / 1550 300 / 300 150 / 150 Weight 91.4 kg Intake: IV 350 / 350 300 / 300 150 / 150 Cipro 400 MG/200 ML Inj 400 mg 200 / 200 In 200 ml @ 200 mls/hr IV.SIG Q24H [facility] Rx#:[id number] Ancef 1 GM Premix Inj 1 gm In 50 / 50 100 / 100 50 / 50 50 ml @ 100 mls/hr IV.SIG Q8HR [facility] Rx#:[id number] Flagyl 500 MG Inj 100 ML @ 100 100 / 100 200 / 200 100 / 100 mls/hr IV.SIG Q8H MAGALYS Rx#: [id number] Oral 1200 / 1200 Output: Urine 0 / 0 Other: # Voids 3 Narrative: GENERAL: Alert and oriented. + Hiccups. SKIN: Multiple tatoos. Warm and dry. CARDIOVASCULAR: Regular rate and rhythm without murmurs, gallops, or rubs. RESPIRATORY: Breath sounds equal bilaterally. No accessory muscle use. GASTROINTESTINAL: Abdomen soft, non-tender, nondistended. MUSCULOSKELETAL: No cyanosis. Bilateral lower extremity edema +2. BACK: Nontender without obvious deformity. No CVA tenderness. NEURO: alert and oriented. No focal deficits. Assessment and Plan - Assessment (1) Acute kidney injury Code(s): N17.9 - Acute kidney failure, unspecified Status: Acute Plan: Acute kidney injury Creatinine noted to be 1.0 on April 20, 2017. BENOIT from cardiorenal syndrome. CT of abdomen with kidneys normal in size and shape. No evidence of mass or hydronephrosis. Creatinine continues to improve at 2.11, good urinary output. Avoid nephrotoxin agents as possible Continue lasix 40 mg BID. Will follow urinary output and BMP Labs in AM (2) Acute cholecystitis Code(s): K81.0 - Acute cholecystitis Status: Acute Plan: On antibiotics (3) CHF (congestive heart failure) Code(s): I50.9 - Heart failure, unspecified Status: Acute Plan: On lasix 40 BID
--- NOTE | 2018-01-11 19:02 | P.PN ---
Subjective Interval history: Sleepy. Still with hiccups Lower extremity edema Physical Exam Vital signs: Vital Signs 01/10/18 20:00 01/11/18 00:00 01/11/18 04:00 Temperature 98.2 F 97.9 F 98.2 F Pulse Rate 104 H 99 H 99 H Respiratory Rate 20 17 18 Blood Pressure 105/70 109/56 L 103/57 L Pulse Oximetry 95 95 95 01/11/18 08:00 01/11/18 12:00 01/11/18 16:00 Temperature 97.5 F L 97.3 F L Pulse Rate 103 H 102 H 106 H Respiratory Rate 16 18 Blood Pressure 111/71 101/49 L Pulse Oximetry 98 Intake & Output 01/11/18 01/11/18 01/12/18 06:59 18:59 06:59 Intake Total 300 / 300 350 / 350 Output Total 0 / 0 Balance 300 / 300 350 / 350 Weight 91.4 kg Intake: IV 300 / 300 350 / 350 Cipro 400 MG/200 ML Inj 400 mg 200 / 200 In 200 ml @ 200 mls/hr IV.SIG Q24H [facility] Rx#:[id number] Ancef 1 GM Premix Inj 1 gm In 100 / 100 50 / 50 50 ml @ 100 mls/hr IV.SIG Q8HR [facility] Rx#:[id number] Flagyl 500 MG Inj 100 ML @ 100 200 / 200 100 / 100 mls/hr IV.SIG Q8H [facility]YS Rx#: [id number] Output: Urine 0 / 0 Narrative: GENERAL: 37-year-old male, sleepy. + Hiccups. SKIN: Multiple tatoos. Warm and dry. CARDIOVASCULAR: Regular rate and rhythm without murmurs, gallops, or rubs. RESPIRATORY: Breath sounds equal bilaterally. No accessory muscle use. GASTROINTESTINAL: Abdomen soft, non-tender, nondistended. MUSCULOSKELETAL: No cyanosis. Bilateral lower extremity edema +2. BACK: Nontender without obvious deformity. No CVA tenderness. NEURO: alert and oriented. No focal deficits. Results - Labs CBC & Chem 7: 01/11/18 05:55 01/11/18 05:55 Laboratory Results - last 24 hr 01/11/18 01/11/18 01/11/18 05:55 05:55 05:55 WBC 8.5 RBC 4.72 Hgb 15.3 Hct 44.5 MCV 94.3 MCH 32.3 MCHC 34.3 RDW 16.2 Plt Count 168 MPV 9.1 Neut % (Auto) 64.2 Lymph % (Auto) 17.4 [place] % (Auto) 17.3 H Eos % (Auto) 0.5 Baso % (Auto) 0.6 Neut # (Auto) 5.5 Lymph # (Auto) 1.5 [place] # (Auto) 1.5 H Eos # (Auto) 0.0 Baso # (Auto) 0.1 WBC Differential . Differential Comment Auto diff final APTT 45.7 H Sodium 133 L Potassium 3.8 Chloride 95 L Carbon Dioxide 29.6 Anion Gap 8 BUN 44 H Creatinine 2.11 H Estimated GFR 35 L Random Glucose 109 H Calcium 8.2 L - Procedures none Assessment and Plan - Assessment (1) Abdominal pain Code(s): R10.9 - Unspecified abdominal pain Status: Acute (2) Acute cholecystitis Code(s): K81.0 - Acute cholecystitis Status: Acute (3) Elevated liver enzymes Code(s): R74.8 - Abnormal levels of other serum enzymes Status: Acute - Plan Cholecystitis - Per surgery and IR, this is chronic and that perc drain not needed. - Continue Abx therapy: Cefazolin, Ciprofloxacin and Metronidazole. 01/04: Followed by Vascular Surgery he has chronically thickened gallbladder wall and does not have acute cholecystitis, due to high risk non candidate for surgery. Abdominal pain, Elevated LFT from liver congestion - Monitor HGB. Vomiting scant blood. Will consult GI. - LFT elevated likely result of hypoperfusion from low EF from heart. Cardiorenal syndrome Acute kidney injury - result of poor effective circulating volume in setting of poor EF. Noted with worsening Creatinine level consult Nephrology specialist, appreciate recs. Received sodium bicarb infusion. Off IVF at this time. With worsening edema. Monitor closely kidney function and clinical status as patient with chf Avoid nephrotoxic agents. Patient has worsening LE edema edema, sob, chest X ray showed volume overload Lasix 80 mg IV push Noted with hyponatremia sodium dropped to 126 give Samsca 30 mg per nephro Creatinine 2.1 worsening ( 01/09) Increase oral Lasix to 40 mg twice daily BNP 2174 Patient has underlying cardiorenal syndrome Cardiomyopathy with EF of 10% - reduced EF < 10% places patient at risk for sudden cardiac from arrhythmia. - keep K > 4 and Mg > 2 - Cardiology consulted and recommendations appreciated. Not a candidate for ICD. Can follow up outpatient with cardiology on discharge. - Patient developed hypotension likely from meds. Today, he is hemodynamically improved. Small fluid boluses or vasopressors as needed for hypotension. Reinitiate Lasix, coreg and lisinopril if tolerated consider restarting med one at a time. Not a candidate for Entresto secondary to hypotension and acute kidney injury. Discussed with case management, not a candidate for ICD/ LifeVest secondary to noncompliance. Patient had LifeVest for 3 months Psychiatry: Drug abuse - patient counselled on importance of stopping drug use. Patient verbalized understanding Hiccups. One-time Reglan IV. Add PRN renal dose reglan Code: FC dvt ppx with subcu heparin Code Status: Full code. Discussed Condition With: patient, nurse Discharge Planning: Pending improvement and clearance by consultants We will consult palliative care for goals of care
[2018-01-12] MEDS: Morphine Sulfate Inj 2 MG/ML Vial IV.PUSH PRN ×6 (01:08→21:55)
[2018-01-12] MEDS: Pantoprazole Inj 40 MG Vial IV.PUSH SCH ×2 (01:09→13:39)
[2018-01-12] MEDS: ceFAZolin 1 GM Premix Inj 1 GM/50 ML FROZ.PIGGY IV.SIG SCH ×3 (05:08→21:54)
[2018-01-12 05:10] LABS: Baso # (Auto) 0.1 th/mm3 (0.0-0.2); Baso % (Auto) 0.8 % (0.0-2.0); Eos # (Auto) 0.1 th/mm3 (0.0-0.4); Eos % (Auto) 0.7 % (0.0-4.0); Hematocrit 42.8 % (39.0-51.0); Hemoglobin 14.1 gm/dL (13.0-17.0); Lymph # (Auto) 1.3 th/mm3 (1.0-4.8); Lymph % (Auto) 15.1 % (9.0-44.0); Mean Corpuscular HGB Conc 33.1 % (32.0-36.0); Mean Corpuscular Hemoglobin 31.4 pg (27.0-34.0); Mean Corpuscular Volume 95.1 fL (80.0-100.0); Mono # (Auto) 1.3 th/mm3 (0.0-0.9); Neut # (Auto) 5.9 th/mm3 (1.8-7.7); Neut % (Auto) 68.4 % (16.0-70.0); Platelet Count 164 th/mm3 (150-450); Red Cell Distribution Width 16.1 % (11.6-17.2); White Blood Count 8.6 th/mm3 (4.0-11.0)
[2018-01-12 05:26] LABS: Calcium 7.7 mg/dL (8.5-10.1); Carbon Dioxide 29.5 meq/L (21.0-32.0); Potassium 3.7 meq/L (3.5-5.1)
[2018-01-12] MEDS: Senna/Docusate Sodium 8.6/50 MG Tablet PO SCH ×2 (08:05→21:54)
[2018-01-12] MEDS: Heparin - SQ 10,000 UNITS/ML Vial SQ SCH ×2 (08:05→21:54)
[2018-01-12] MEDS: Furosemide 20 MG Tablet PO SCH ×2 (08:10→17:30)
--- NOTE | 2018-01-12 10:59 | P.PNNP ---
Subjective Interval history: No acute events overnight. Denies any shortness of breath, chest pain, or dysuria. Reports continued abdominal discomfort. Physical Exam Vital signs: Vital Signs 01/11/18 12:00 01/11/18 16:00 01/11/18 20:00 Temperature 97.5 F L 97.3 F L 97.1 F L Pulse Rate 102 H 106 H 111 H Respiratory Rate 16 18 18 Blood Pressure 111/71 101/49 L 100/68 Pulse Oximetry 98 97 01/11/18 21:15 01/12/18 00:00 01/12/18 04:00 Temperature 97.2 F L 97.6 F Pulse Rate 104 H 98 H Respiratory Rate 18 18 18 Blood Pressure 104/73 102/70 Pulse Oximetry 95 96 01/12/18 08:00 Temperature 97.4 F L Pulse Rate 101 H Respiratory Rate 19 Blood Pressure 109/68 Pulse Oximetry 96 Intake & Output 01/11/18 01/12/18 01/12/18 18:59 06:59 18:59 Intake Total 350 / 350 1050 / 1050 150 / 150 Balance 350 / 350 1050 / 1050 150 / 150 Weight 91.4 kg Intake: IV 350 / 350 150 / 150 150 / 150 Cipro 400 MG/200 ML Inj 400 mg 200 / 200 In 200 ml @ 200 mls/hr IV.SIG Q24H [facility] Rx#:[id number] Ancef 1 GM Premix Inj 1 gm In 50 / 50 50 / 50 50 / 50 50 ml @ 100 mls/hr IV.SIG Q8HR MAGALYS Rx#:[id number] Flagyl 500 MG Inj 100 ML @ 100 100 / 100 100 / 100 100 / 100 mls/hr IV.SIG Q8H MAGALYS Rx#: [id number] Oral 900 / 900 Other: # Voids 5 Date of Last Bowel Movement 01/11/18 Narrative: GENERAL: Alert and oriented. + Hiccups. SKIN: Multiple tatoos. Warm and dry. CARDIOVASCULAR: Regular rate and rhythm without murmurs, gallops, or rubs. RESPIRATORY: Breath sounds equal bilaterally. No accessory muscle use. GASTROINTESTINAL: Abdomen soft, non-tender, nondistended. MUSCULOSKELETAL: No cyanosis. Bilateral lower extremity edema +2. BACK: Nontender without obvious deformity. No CVA tenderness. NEURO: alert and oriented. No focal deficits. Assessment and Plan - Assessment (1) Acute kidney injury Code(s): N17.9 - Acute kidney failure, unspecified Status: Acute Plan: Acute kidney injury Creatinine noted to be 1.0 on April 20, 2017. BENOIT from cardiorenal syndrome. CT of abdomen with kidneys normal in size and shape. No evidence of mass or hydronephrosis. Creatinine continues to improve at 1.90, good urinary output. Avoid nephrotoxin agents as possible Continue lasix 40 mg BID. Will continue to monitor following urinary output and BMP Labs in AM (2) Acute cholecystitis Code(s): K81.0 - Acute cholecystitis Status: Acute Plan: On antibiotics (3) CHF (congestive heart failure) Code(s): I50.9 - Heart failure, unspecified Status: Acute Plan: On lasix 40 BID
--- NOTE | 2018-01-12 12:40 | P.PNIM ---
Subjective Interval history: Patient currently no acute distress. He says this morning he had a significant amount of diffuse abdominal pain. Physical Exam Vital signs: Vital Signs 01/11/18 16:00 01/11/18 20:00 01/11/18 21:15 Temperature 97.3 F L 97.1 F L Pulse Rate 106 H 111 H Respiratory Rate 18 18 18 Blood Pressure 101/49 L 100/68 Pulse Oximetry 98 97 01/12/18 00:00 01/12/18 04:00 01/12/18 08:00 Temperature 97.2 F L 97.6 F 97.4 F L Pulse Rate 104 H 98 H 101 H Respiratory Rate 18 18 19 Blood Pressure 104/73 102/70 109/68 Pulse Oximetry 95 96 96 Intake & Output 01/11/18 01/12/18 01/12/18 18:59 06:59 18:59 Intake Total 350 / 350 1050 / 1050 150 / 150 Balance 350 / 350 1050 / 1050 150 / 150 Weight 91.4 kg Intake: IV 350 / 350 150 / 150 150 / 150 Cipro 400 MG/200 ML Inj 400 mg 200 / 200 In 200 ml @ 200 mls/hr IV.SIG Q24H [facility] Rx#:[id number] Ancef 1 GM Premix Inj 1 gm In 50 / 50 50 / 50 50 / 50 50 ml @ 100 mls/hr IV.SIG Q8HR MAGALYS Rx#:[id number] Flagyl 500 MG Inj 100 ML @ 100 100 / 100 100 / 100 100 / 100 mls/hr IV.SIG Q8H MAGALYS Rx#: [id number] Oral 900 / 900 Other: # Voids 5 Date of Last Bowel Movement 01/11/18 Narrative: General patient currently no acute distress. Says he has on and off abdominal pain throughout the day. HEENT extraocular movements are intact, clear oropharyngeal mucosa, no JVD Cardiovascular S1-S2 audible, RRR, no murmurs rubs or gallops Respiratory clear to auscultation bilaterally Abdomen soft, nontender, nondistended, normal bowel sounds Extremities no edema 2+ distal pulses in bilateral upper and lower extremities Neuro no neurological deficits. Results - Labs CBC & Chem 7: 01/12/18 03:49 01/12/18 03:49 Laboratory Results - last 24 hr 01/12/18 01/12/18 03:49 03:49 WBC 8.6 RBC 4.50 Hgb 14.1 Hct 42.8 MCV 95.1 MCH 31.4 MCHC 33.1 RDW 16.1 Plt Count 164 MPV 9.0 Neut % (Auto) 68.4 Lymph % (Auto) 15.1 [place] % (Auto) 15.0 H Eos % (Auto) 0.7 Baso % (Auto) 0.8 Neut # (Auto) 5.9 Lymph # (Auto) 1.3 [place] # (Auto) 1.3 H Eos # (Auto) 0.1 Baso # (Auto) 0.1 WBC Differential . Differential Comment Auto diff final Sodium 135 L Potassium 3.7 Chloride 97 L Carbon Dioxide 29.5 Anion Gap 9 BUN 38 H Creatinine 1.94 H Estimated GFR 39 L Random Glucose 106 Calcium 7.7 L - Procedures none Assessment and Plan - Assessment (1) Abdominal pain Code(s): R10.9 - Unspecified abdominal pain Status: Acute (2) Acute cholecystitis Code(s): K81.0 - Acute cholecystitis Status: Acute (3) Elevated liver enzymes Code(s): R74.8 - Abnormal levels of other serum enzymes Status: Acute - Plan This patient is a 37-year-old male with a diagnosis of systolic CHF ejection fraction 10%, history of cocaine abuse. The patient was admitted for abdominal pain and concern for possible cholecystitis. Patient is also being treated for acute kidney injury, possibly cardiorenal syndrome. 1. Cholecystitis As per the surgical team and interventional radiology this is chronic and the patient does not need a percutaneous drain or surgical intervention at this time. Patient is currently on antibiotics. He has remained afebrile overnight, continues to be tachycardic. Blood cultures are negative, WBC count within normal limits. Patient has been on IV antibiotics for 10 days. Will stop antibiotics today. If the patient begins to have fevers or a significant elevation in his WBC count will consider restarting antibiotics. We will follow-up with surgery to see if they have any other further recommendations. 2. Elevated LFTs likely hepatic congestion LFTs were elevated, possibly hepatic congestion. Last LFTs were checked approximately 1 week ago. Will order a CMP for tomorrow a.m. 3. Acute kidney injury, possibly cardiorenal syndrome 4. Systolic CHF ejection fraction 10% Patient has a very poor systolic ejection fraction of 10%. Given his poor systolic dysfunction the patient has high risk for arrhythmias. Will replace electrolytes as needed. Continue Coreg, Lasix, lisinopril held due to acute kidney injury. Will follow up with any further recommendations from cardiology. As per documentation the patient is not a candidate for LifeVest secondary to noncompliance. Nephrology following for acute kidney injury, will follow up with the recommendations as well. Creatinine 1.94 slightly improved from yesterday. 5. Drug abuse Patient counseled on his drug use. Heparin for DVT prophylaxis.
[2018-01-12] MEDS: Metoclopramide 10 MG Tablet PO PRN (17:49)
[2018-01-13] MEDS: Morphine Sulfate Inj 2 MG/ML Vial IV.PUSH PRN ×4 (02:42→14:01)
[2018-01-13] MEDS: Pantoprazole Inj 40 MG Vial IV.PUSH SCH ×2 (02:42→14:01)
[2018-01-13 06:08] LABS: Baso # (Auto) 0.1 th/mm3 (0.0-0.2); Baso % (Auto) 0.9 % (0.0-2.0); Eos # (Auto) 0.1 th/mm3 (0.0-0.4); Eos % (Auto) 0.9 % (0.0-4.0); Hemoglobin 16.1 gm/dL (13.0-17.0); Lymph # (Auto) 1.6 th/mm3 (1.0-4.8); Lymph % (Auto) 19.7 % (9.0-44.0); Mean Corpuscular HGB Conc 34.2 % (32.0-36.0); Mean Corpuscular Hemoglobin 32.2 pg (27.0-34.0); Mean Platelet Volume 8.8 fL (7.0-11.0); Mono # (Auto) 1.3 th/mm3 (0.0-0.9); Mono % (Auto) 15.8 % (0.0-8.0); Neut # (Auto) 5.1 th/mm3 (1.8-7.7); Neut % (Auto) 62.7 % (16.0-70.0); Platelet Count 187 th/mm3 (150-450); Red Cell Distribution Width 16.1 % (11.6-17.2); White Blood Count 8.1 th/mm3 (4.0-11.0)
[2018-01-13] MEDS: ceFAZolin 1 GM Premix Inj 1 GM/50 ML FROZ.PIGGY IV.SIG SCH ×2 (06:29→14:01)
[2018-01-13 06:35] LABS: Alanine Aminotransferase 167 U/L (12-78); Albumin 2.9 g/dL (3.4-5.0); Anion Gap 8 meq/L (5-15); Aspartate Aminotransferase 176 U/L (15-37); Blood Urea Nitrogen 31 mg/dL (7-18); Chloride 95 meq/L (98-107); Glomerular Filtration Rate 40 mL/min (>89); Glucose,Random 76 mg/dL (74-106); Magnesium 1.9 mg/dL (1.5-2.5); Potassium 3.2 meq/L (3.5-5.1); Sodium 135 meq/L (136-145)
[2018-01-13 06:37] LABS: Alkaline Phosphatase 120 U/L (45-117); Total Protein 6.1 g/dL (6.4-8.2)
[2018-01-13] MEDS: Metoclopramide 10 MG Tablet PO PRN (06:51)
[2018-01-13] MEDS: Heparin - SQ 10,000 UNITS/ML Vial SQ SCH (08:46)
[2018-01-13] MEDS: Furosemide 20 MG Tablet PO SCH ×2 (08:47→17:03)
[2018-01-13] MEDS: Senna/Docusate Sodium 8.6/50 MG Tablet PO SCH (08:47)
[2018-01-13 08:51] VITALS: RESP 17
--- NOTE | 2018-01-13 10:32 | P.PNNP ---
Subjective Interval history: Creatinine at 1.89 today. Continues to complain of nausea and abdominal discomfort. Denies any shortness of breath. Physical Exam Vital signs: Vital Signs 01/12/18 12:00 01/12/18 13:40 01/12/18 16:00 Temperature 97.4 F L 97.9 F Pulse Rate 107 H 99 H Respiratory Rate 17 18 18 Blood Pressure 97/69 L 100/67 Pulse Oximetry 93 L 97 01/12/18 16:54 01/12/18 17:46 01/12/18 20:00 Temperature 97.1 F L Pulse Rate 110 H 110 H Respiratory Rate 18 18 Blood Pressure 109/77 Pulse Oximetry 94 L 01/12/18 23:55 01/13/18 00:00 01/13/18 04:00 Temperature 97.4 F L 97.2 F L Pulse Rate 107 H 101 H 111 H Respiratory Rate 18 18 Blood Pressure 115/79 102/59 L Pulse Oximetry 98 97 01/13/18 08:00 Temperature 97.8 F Pulse Rate 106 H Respiratory Rate 17 Blood Pressure 101/69 Pulse Oximetry 94 L Intake & Output 01/12/18 01/13/18 01/13/18 18:59 06:59 18:59 Intake Total 1400 / 1400 650 / 650 50 / 50 Balance 1400 / 1400 650 / 650 50 / 50 Weight 91.4 kg Intake: IV 200 / 200 50 / 50 50 / 50 Ancef 1 GM Premix Inj 1 gm In 100 / 100 50 / 50 50 / 50 50 ml @ 100 mls/hr IV.SIG Q8HR MAGALYS Rx#:[id number] Flagyl 500 MG Inj 100 ML @ 100 100 / 100 mls/hr IV.SIG Q8H MAGALYS Rx#: [id number] Oral 1200 / 1200 600 / 600 Other: # Voids 4 5 Date of Last Bowel Movement 01/11/18 01/13/18 Narrative: GENERAL: Alert and oriented. + Hiccups. SKIN: Multiple tatoos. Warm and dry. CARDIOVASCULAR: Regular rate and rhythm without murmurs, gallops, or rubs. RESPIRATORY: Breath sounds equal bilaterally. No accessory muscle use. GASTROINTESTINAL: Abdomen soft, non-tender, nondistended. MUSCULOSKELETAL: No cyanosis. Bilateral lower extremity edema +2. BACK: Nontender without obvious deformity. No CVA tenderness. NEURO: alert and oriented. No focal deficits. Assessment and Plan - Assessment (1) Acute kidney injury Code(s): N17.9 - Acute kidney failure, unspecified Status: Acute Plan: Acute kidney injury Creatinine noted to be 1.0 on April 20, 2017. BENOIT from cardiorenal syndrome. CT of abdomen with kidneys normal in size and shape. No evidence of mass or hydronephrosis. Creatinine stable at 1.89 today. Avoid nephrotoxin agents as possible Continue lasix 40 mg BID. Will follow urinary output and BMP From a nephrology stand point patient is cleared for discharge but will need to follow up with nephrology outpatient. Plans for discharge today (2) Acute cholecystitis Code(s): K81.0 - Acute cholecystitis Status: Acute (3) CHF (congestive heart failure) Code(s): I50.9 - Heart failure, unspecified Status: Acute Plan: On lasix 40 BID
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
--- NOTE | 2018-01-13 14:07 | P.PNGI ---
Subjective Interval history: Patient sitting up in bed Reports possible discharge today No reported bleeding, nausea or vomiting <Mihaela Laura - Last Filed: 01/13/18 14:03> Physical Exam Vital signs: Vital Signs 01/12/18 16:00 01/12/18 16:54 01/12/18 17:46 Temperature 97.9 F Pulse Rate 99 H 110 H Respiratory Rate 18 18 Blood Pressure 100/67 Pulse Oximetry 97 01/12/18 20:00 01/12/18 23:55 01/13/18 00:00 Temperature 97.1 F L 97.4 F L Pulse Rate 110 H 107 H 101 H Respiratory Rate 18 18 Blood Pressure 109/77 115/79 Pulse Oximetry 94 L 98 01/13/18 04:00 01/13/18 08:00 01/13/18 12:00 Temperature 97.2 F L 97.8 F 98.3 F Pulse Rate 111 H 106 H 106 H Respiratory Rate 18 17 17 Blood Pressure 102/59 L 101/69 117/81 Pulse Oximetry 97 94 L 92 L Intake & Output 01/12/18 01/13/18 01/13/18 18:59 06:59 18:59 Intake Total 1400 / 1400 650 / 650 50 / 50 Balance 1400 / 1400 650 / 650 50 / 50 Weight 91.4 kg Intake: IV 200 / 200 50 / 50 50 / 50 Ancef 1 GM Premix Inj 1 gm In 100 / 100 50 / 50 50 / 50 50 ml @ 100 mls/hr IV.SIG Q8HR MAGALYS Rx#:[id number] Flagyl 500 MG Inj 100 ML @ 100 100 / 100 mls/hr IV.SIG Q8H MAGALYS Rx#: [id number] Oral 1200 / 1200 600 / 600 Other: # Voids 4 5 Date of Last Bowel Movement 01/11/18 01/13/18 - Constitutional no acute distress - Routine HEENT Exam Head: Present: normocephalic - Routine Respiratory Exam Present: CTA bilaterally - Routine Cardiovascular Exam Present: RRR - Routine Abdominal Exam Present: soft, normoactive bowel sounds. Absent: tenderness, distended, guarding, firm - Routine Extremities Exam Present: edema, pulses intact - Routine Neurological Exam Present: alert - Routine Psychiatric Exam Present: normal affect, cooperative <Mihaela Laura - Last Filed: 01/13/18 14:03> Vital signs: Vital Signs 01/12/18 16:54 01/12/18 17:46 01/12/18 20:00 Temperature 97.1 F L Pulse Rate 110 H 110 H Respiratory Rate 18 18 Blood Pressure 109/77 Pulse Oximetry 94 L 01/12/18 23:55 01/13/18 00:00 01/13/18 04:00 Temperature 97.4 F L 97.2 F L Pulse Rate 107 H 101 H 111 H Respiratory Rate 18 18 Blood Pressure 115/79 102/59 L Pulse Oximetry 98 97 01/13/18 08:00 01/13/18 12:00 01/13/18 16:00 Temperature 97.8 F 98.3 F 98.1 F Pulse Rate 106 H 106 H 101 H Respiratory Rate 17 17 17 Blood Pressure 101/69 117/81 101/71 Pulse Oximetry 94 L 92 L 95 Intake & Output 01/12/18 01/13/18 01/13/18 18:59 06:59 18:59 Intake Total 1400 / 1400 650 / 650 100 / 100 Balance 1400 / 1400 650 / 650 100 / 100 Weight 91.4 kg Intake: IV 200 / 200 50 / 50 100 / 100 Ancef 1 GM Premix Inj 1 gm In 100 / 100 50 / 50 100 / 100 50 ml @ 100 mls/hr IV.SIG Q8HR MAGALYS Rx#:[id number] Flagyl 500 MG Inj 100 ML @ 100 100 / 100 mls/hr IV.SIG Q8H MAGALYS Rx#: [id number] Oral 1200 / 1200 600 / 600 Other: # Voids 4 5 Date of Last Bowel Movement 01/11/18 01/13/18 <Yovana Cabrera A - Last Filed: 01/13/18 16:48> Results - Labs CBC & Chem 7: 01/13/18 05:46 01/13/18 05:40 Laboratory Results - last 24 hr 01/13/18 01/13/18 05:40 05:46 WBC 8.1 RBC 5.00 Hgb 16.1 D Hct 47.0 MCV 94.0 MCH 32.2 MCHC 34.2 RDW 16.1 Plt Count 187 MPV 8.8 Neut % (Auto) 62.7 Lymph % (Auto) 19.7 [place] % (Auto) 15.8 H Eos % (Auto) 0.9 Baso % (Auto) 0.9 Neut # (Auto) 5.1 Lymph # (Auto) 1.6 [place] # (Auto) 1.3 H Eos # (Auto) 0.1 Baso # (Auto) 0.1 WBC Differential . Differential Comment Auto diff final Sodium 135 L Potassium 3.2 L Chloride 95 L Carbon Dioxide 32.0 Anion Gap 8 BUN 31 H Creatinine 1.89 H Estimated GFR 40 L Random Glucose 76 Calcium 8.0 L Magnesium 1.9 Total Bilirubin 1.7 H AST 176 H ALT 167 H Alkaline Phosphatase 120 H Total Protein 6.1 L Albumin 2.9 L - Procedures none <Mihaela Laura - Last Filed: 01/13/18 14:03> - Labs CBC & Chem 7: 01/13/18 05:46 01/13/18 05:40 Laboratory Results - last 24 hr 01/13/18 01/13/18 05:40 05:46 WBC 8.1 RBC 5.00 Hgb 16.1 D Hct 47.0 MCV 94.0 MCH 32.2 MCHC 34.2 RDW 16.1 Plt Count 187 MPV 8.8 Neut % (Auto) 62.7 Lymph % (Auto) 19.7 [place] % (Auto) 15.8 H Eos % (Auto) 0.9 Baso % (Auto) 0.9 Neut # (Auto) 5.1 Lymph # (Auto) 1.6 [place] # (Auto) 1.3 H Eos # (Auto) 0.1 Baso # (Auto) 0.1 WBC Differential . Differential Comment Auto diff final Sodium 135 L Potassium 3.2 L Chloride 95 L Carbon Dioxide 32.0 Anion Gap 8 BUN 31 H Creatinine 1.89 H Estimated GFR 40 L Random Glucose 76 Calcium 8.0 L Magnesium 1.9 Total Bilirubin 1.7 H AST 176 H ALT 167 H Alkaline Phosphatase 120 H Total Protein 6.1 L Albumin 2.9 L <Yovana Cabrera - Last Filed: 01/13/18 16:48> Assessment and Plan (1) Abdominal pain Status: Acute Code(s): R10.9 - Unspecified abdominal pain - Plan This patient is a 37-year-old male with a significant past medical history of congestive heart failure with an EF of 20%, chronic kidney disease, cocaine abuse, past skull fracture, and cardiomyopathy. Patient presented to the ER at [facility] on 01/01/2018 with complaint of right-sided abdominal pain onset 3 days ago. Patient describes the pain as sharp and spasmodic states that it is intermittent and is aggravated by eating fried or fatty foods and also with carbonated beverages. Patient endorses decreased appetite over the last week. Patient unsure if he has ever had upper endoscopy in the past. Denies ever having had a colonoscopy in the past. Patient reports one episode of dark emesis and dark stools 3 days ago. Patient describes same as dark brown in color. Patient denies use of NSAIDs or aspirin. Patient denies any known family history for gastrointestinal disorders. States he smokes 3 cigarettes/week. Reports he is a social drinker of alcoholic products. Upon consultation, patient denies any use of illicit drugs however, upon admission he acknowledged using cocaine earlier prior to admission because he thought it would relieve his abdominal pain. Patient was recently admitted 1 week ago for chest pain with exacerbation of CHF. Our service has been consulted to evaluate patient for abdominal pain with nausea vomiting and dark stools. Abdominal pain Possible melena stools/hematemesis Patient endorses 3-day history of right-sided abdominal pain that he describes as spasmodic. Patient rates pain at 8 out of 10 and states it is aggravated by eating fried or fatty foods. Patient reports one episode of dark emesis and stools 3 days ago. Patient denies use of NSAIDs or aspirin. 01/01/2018 hemoglobin 17.1 hematocrit 52.4 BUN 24 creatinine 2.2 GFR 33 lipase 84 01/01/2018 CT abdomen and pelvis revealed the following findings-- Thick-walled gallbladder containing hyperdense material suggesting sludge and pericholecystic inflammation. The findings suggest acute cholecystitis. Clinical correlation is recommended. Enlarged liver. Markedly enlarged heart. Small amount of ascites within the abdomen or pelvis. Mild degenerative changes and scoliosis of the thoracolumbar spine. 01/02/2018 Abdominal pain/cholecystitis/choledocholithiasis Patient resting soundly. Continued abdominal pain reported. No reported bleeding. Per general surgery consultation, patient is not a surgical candidate due to ejection fraction of less than 10% during last admission. We will consult IR for percutaneous drainage of gallbladder. Hemoglobin 16.2 hematocrit 46.2 platelet count 196 Total bilirubin 1.0 AST 181 ALT 177 alk phos 74. 01/02/18 Spoke with , who feels patient not considered a candidate for percutaneous drainage as HIDA scan normal and cystic duct patent. 01/10/2018 -GI has been asked to evaluate patient for ongoing report of dark emesis and stools. Patient reporting decreased appetite for 5 days with black tarry stools and emesis for 10 days. Patient states he is having intermittent bouts of heartburn for which he takes Tums. Reports chronic right upper quadrant pain that radiates to epigastric area. During exam patient had small amount of emesis clear colored. -01/01/2018 CT abdomen and pelvis-- 1. Thick-walled gallbladder containing hyperdense material suggesting sludge and pericholecystic inflammation. The findings suggest acute cholecystitis. Clinical correlation is recommended. 2. Enlarged liver. 3. Markedly enlarged heart. 4. Small amount of ascites within the abdomen or pelvis. 5. Mild degenerative changes and scoliosis of the thoracolumbar spine. -01/10/2018 WBC 9.9 hemoglobin 15.5 hematocrit 46.6 and stable 01/11/2018 patient is sitting up in the bed , attempting to eat large soft scrambled egg sandwich brought down from a female friend. Patient states still having some mid to right upper quadrant abdominal pain but does seem to have improved over the past 24 hours but does note it waxes and wanes. States he is not eating anything for days and he wants food. Appreciate palliative care input and supportive care. Currently patient needs monitoring of his symptoms and labs and supportive care but is reliant no further recommendations or procedures from a GI perspective. 01/13/2018 Patient sitting up in bed. Denies any noted bleeding, no reported bleeding Denies any nausea or vomiting. States he has been "sneaking" solid food into the hospital and eating without any noted distress. Reports intermittent abdominal discomfort. Advised patient regarding low-fat diet. 01/13/2018 hemoglobin 16.1 hematocrit 47 Plan Diet as tolerated Continue PPI Avoid NSAIDs Avoid illegal drugs of choice Pain Meds per attending Supportive care Patient was seen per myself and Dr. Cabrera, note was written on his behalf - Attending Attestation Dr. cabrera <Mihaela Laura - Last Filed: 01/13/18 14:03> (1) Abdominal pain Status: Acute Code(s): R10.9 - Unspecified abdominal pain - Plan This patient is a 37-year-old male with a significant past medical history of congestive heart failure with an EF of 20%, chronic kidney disease, cocaine abuse, past skull fracture, and cardiomyopathy. Patient presented to the ER at [facility] on 01/01/2018 with complaint of right-sided abdominal pain onset 3 days ago. Patient describes the pain as sharp and spasmodic states that it is intermittent and is aggravated by eating fried or fatty foods and also with carbonated beverages. Patient endorses decreased appetite over the last week. Patient unsure if he has ever had upper endoscopy in the past. Denies ever having had a colonoscopy in the past. Patient reports one episode of dark emesis and dark stools 3 days ago. Patient describes same as dark brown in color. Patient denies use of NSAIDs or aspirin. Patient denies any known family history for gastrointestinal disorders. States he smokes 3 cigarettes/week. Reports he is a social drinker of alcoholic products. Upon consultation, patient denies any use of illicit drugs however, upon admission he acknowledged using cocaine earlier prior to admission because he thought it would relieve his abdominal pain. Patient was recently admitted 1 week ago for chest pain with exacerbation of CHF. Our service has been consulted to evaluate patient for abdominal pain with nausea vomiting and dark stools. Abdominal pain Possible melena stools/hematemesis Patient endorses 3-day history of right-sided abdominal pain that he describes as spasmodic. Patient rates pain at 8 out of 10 and states it is aggravated by eating fried or fatty foods. Patient reports one episode of dark emesis and stools 3 days ago. Patient denies use of NSAIDs or aspirin. 01/01/2018 hemoglobin 17.1 hematocrit 52.4 BUN 24 creatinine 2.2 GFR 33 lipase 84 01/01/2018 CT abdomen and pelvis revealed the following findings-- Thick-walled gallbladder containing hyperdense material suggesting sludge and pericholecystic inflammation. The findings suggest acute cholecystitis. Clinical correlation is recommended. Enlarged liver. Markedly enlarged heart. Small amount of ascites within the abdomen or pelvis. Mild degenerative changes and scoliosis of the thoracolumbar spine. 01/02/2018 Abdominal pain/cholecystitis/choledocholithiasis Patient resting soundly. Continued abdominal pain reported. No reported bleeding. Per general surgery consultation, patient is not a surgical candidate due to ejection fraction of less than 10% during last admission. We will consult IR for percutaneous drainage of gallbladder. Hemoglobin 16.2 hematocrit 46.2 platelet count 196 Total bilirubin 1.0 AST 181 ALT 177 alk phos 74. 01/02/18 Spoke with , who feels patient not considered a candidate for percutaneous drainage as HIDA scan normal and cystic duct patent. 01/10/2018 -GI has been asked to evaluate patient for ongoing report of dark emesis and stools. Patient reporting decreased appetite for 5 days with black tarry stools and emesis for 10 days. Patient states he is having intermittent bouts of heartburn for which he takes Tums. Reports chronic right upper quadrant pain that radiates to epigastric area. During exam patient had small amount of emesis clear colored. -01/01/2018 CT abdomen and pelvis-- 1. Thick-walled gallbladder containing hyperdense material suggesting sludge and pericholecystic inflammation. The findings suggest acute cholecystitis. Clinical correlation is recommended. 2. Enlarged liver. 3. Markedly enlarged heart. 4. Small amount of ascites within the abdomen or pelvis. 5. Mild degenerative changes and scoliosis of the thoracolumbar spine. -01/10/2018 WBC 9.9 hemoglobin 15.5 hematocrit 46.6 and stable 01/11/2018 patient is sitting up in the bed , attempting to eat large soft scrambled egg sandwich brought down from a female friend. Patient states still having some mid to right upper quadrant abdominal pain but does seem to have improved over the past 24 hours but does note it waxes and wanes. States he is not eating anything for days and he wants food. Appreciate palliative care input and supportive care. Currently patient needs monitoring of his symptoms and labs and supportive care but is reliant no further recommendations or procedures from a GI perspective. 01/13/2018 Patient sitting up in bed. Denies any noted bleeding, no reported bleeding Denies any nausea or vomiting. States he has been "sneaking" solid food into the hospital and eating without any noted distress. Reports intermittent abdominal discomfort. Advised patient regarding low-fat diet. 01/13/2018 hemoglobin 16.1 hematocrit 47 Plan Diet as tolerated Continue PPI Avoid NSAIDs Avoid illegal drugs of choice Pain Meds per attending Supportive care Patient was seen per myself and Dr. Cabrera, note was written on his behalf - Attending Attestation Seen and examined, plan as above. Will follow up with you as needed. <Yovana Cabrera - Last Filed: 01/13/18 16:48>
--- NOTE | 2018-01-13 15:10 | P.DCO ---
- Physical Therapy Order: Evaluate and treat - Home Health Nursing Order: Medical education, CHF education, Nursing assessment with vital signs - Case Management Consult Case Management Consult-Home Health: Yes - Certification I have seen patient Trevor Rodriguez on 01/13/18. My clinical findings support the need for the requested home health care services because: Medication compliance is questionable I certify that my clinical findings support that this patient is homebound because: Poor cardiac reserve
[2018-01-13 16:13] VITALS: BP 101/71; TEMP 98.1
[2018-01-13 17:02] VITALS: PULSE 108; O2SAT 96
== END 2018-01-13 17:37 | disposition home or self-care (01) ==
LOC: NEDA 04:00 → NEPE 04:00 → NEPGCP 06:30 → N03 01-02 14:35 → N07 01-04 18:23
PROVIDERS: ADMIT Hospitalist; ATTEND Hospitalist
DX: I42.9 Cardiomyopathy, unspecified; R00.0 Tachycardia, unspecified; F17.210 Nicotine dependence, cigarettes, uncomplicated; F14.10 Cocaine abuse, uncomplicated; Z91.14 Patient's other noncompliance with medication regimen; K80.66 Calculus of gallbladder and bile duct with acute and chronic cholecystitis without obstruction; N17.9 Acute kidney failure, unspecified; I13.0 Hypertensive heart and chronic kidney disease with heart failure and stage 1 through stage 4 chronic kidney disease, or unspecified chronic kidney disease; E87.1 Hypo-osmolality and hyponatremia; E86.0 Dehydration; K76.1 Chronic passive congestion of liver; N18.9 Chronic kidney disease, unspecified; R06.6 Hiccough; I95.2 Hypotension due to drugs; I50.23 Acute on chronic systolic (congestive) heart failure; E87.5 Hyperkalemia